=== PATIENT | male | born 1965 | race Caucasian/White ===

== ENCOUNTER 2023-08-27 14:04 | Inpatient (IN) | payer BC, SELFPAY ==
[2023-08-27] VITALS (34 sets, daily range): BP systolic 96–133; BP diastolic 62–97; PULSE 83–126; RESP 18–24; TEMP 36.6–39.3; O2SAT 87–98; BMI 25.0; BMI 25.3
--- NOTE | 2023-08-27 | CT_ITS ---
Patient: RENUKA MEJIA Facility:?[facility] Patient ID:?[id number] Site Patient ID:?[id number]. Site :?[id number] Study:?CT-Abdomen/Pelvis W/ 95CC [id number]/20/2024 5:06:02 PM Ordering Physician:Akosua Lawrence Final Report: Indication: Anorexia, vomiting, weight loss, weakness, confusion Technique: CT abdomen and pelvis with intravenous contrast, 95 cc of Isovue [address] Please note that all CT scans at this facility use dose modulation, iterative reconstruction, and/or weight-based dosing when appropriate to reduce radiation dose to as low as reasonably achievable. Comparison: Same day CT PE study Findings: The lower chest is grossly clear, see dedicated CT PE study report. Tiny gallstone is noted within the gallbladder. The liver, spleen, adrenal glands, pancreas and kidneys are unremarkable. 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 The hollow viscera without obstruction, focal bowel wall thickening or adjacent inflammatory stranding. The appendix is normal. No ascites or free air is present. Borderline enlarged hepato pancreatic node measures 10 millimeters in the short axis and portacaval node measures 14 millimeters in the short axis. The abdominal aorta and its major branches are patent and normal in caliber. Soft tissues are unremarkable. 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 Sclerosis within L4 is likely a bone island. There are degenerative changes within the lower lumbar facets. Impression: Enlarged portacaval node and borderline enlarged hepatopancreatic node, consider pancreatitis or cholecystitis. Recommend appropriate laboratory correlation and further imaging as clinically warranted. Please note that all CT scans at this facility use dose modulation, iterative reconstruction, and/or weight-based dosing when appropriate to reduce radiation dose to as low as reasonably achievable. Dictated by Tono Alarcon MD @ 08/27/2023 5:37:33 PM Signed by:?Tono Alarcon MD @08/27/2023 5:37:33 PM (Electronic Signature)
--- NOTE | 2023-08-27 15:06 | ED_ITS ---
HPI - General Adult General Time Seen by Provider: 15:07 <Judi Payan MD - Last Filed: 08/30/23 09:05> Date Seen: 08/27/23 <Judi Payan MD - Last Filed: 08/30/23 09:05> Chief complaint: Nausea/Vomiting <Judi Payan MD - Last Filed: 08/30/23 09:05> Stated complaint: General malaise, npo, vomiting <Judi Payan MD - Last Filed: 08/30/23 09:05> Time Seen by Provider: 08/27/23 14:55 <Judi Payan MD - Last Filed: 08/30/23 09:05> Source: patient, family and RN notes reviewed <Judi Payan MD - Last Filed: 08/30/23 09:05> Mode of arrival: ambulatory <Judi Payan MD - Last Filed: 08/30/23 09:05> Limitations: no limitations <Judi Payan MD - Last Filed: 08/30/23 09:05> History of Present Illness HPI narrative: This 58-year-old male is coming in with complaint of nausea and vomiting with eating, states his symptoms have been going on for a month and a half. He presents with family. When asked him who is with him, he introduces his sister and his brother. It is actually his sister and his son that her with. Patient had been down in [place], family went down to bring him back. He was in the ER at [facility] in [place], was seen on 08/07/2023. He reportedly had a CT and labs. His liver enzymes were elevated and his CT showed liver enlargement. They did give him ondansetron, he did not find it helpful but did take it. It did not allow him to eat more. He states he is really only ate minimal bites and drinks small amounts. They also did give him oral potassium. In the ER his magnesium and potassium were reportedly low, do not have the actual values. He states the only medicines that he is on our to rate control meds for history of atrial fibrillation. He has a remote history of an ablation at [facility] for atrial fibrillation. He states he was anticoagulated for about a year with that but is no longer on any anticoagulants. He has noted no change in stool color, no blood in stools but admits he has not really gone to the bathroom much the last few days is not eating. He is adamant that he is not had any alcohol for at least a week. Family is concerned that this is alcohol related, wonder about underlying cancer from alcohol. Reviewed with them that typically hepatocellular carcinoma would be seen on the CT, it looks like he had contrast with that CT. Family wondered if there could be missed things on imaging. We did review that there is always the possibility of mis sing things. He has not had endoscopy. He was supposed to be scheduled to see a motor vehicles inspector but admits he could not make that as he did not have a car or there were issues surrounding him getting to these appointments there. He notes he is lost about 30 lb in the last month and a half. Denies abdominal pain, no chest pain, no reflux, no heartburn. No respiratory symptoms. He is not feeling nauseated now. He notes Radha tries to eat or drink, will feel nauseated and then have vomiting. We have never seen this patient before. He has done some primary care at [facility]. <Judi Payan MD - Last Filed: 08/30/23 09:05> Related Data Home medications: Home Medications ?Medication ?Instructions ?Recorded ?Confirmed metoprolol succinate 100 mg 100 mg PO DAILY 08/27/23 08/27/23 tablet,extended release 24 hr ondansetron HCl 8 mg tablet 8 mg PO TID 08/27/23 08/27/23 <Judi Payan MD - Last Filed: 08/30/23 09:05> Allergies/adverse reactions: Allergies Allergy/AdvReac Type Severity Reaction Status Date / Time No Known Drug Allergies Allergy Verified 08/27/23 14:24 <Judi Payan MD - Last Filed: 08/30/23 09:05> Review of Systems Status of ROS: Reports: 6 or more systems reviewed and unremarkable except as noted in History and below <Judi Payan MD - Last Filed: 08/30/23 09:05> PFSH PFSH Medical History: Medical History (Updated 08/29/23 @ 16:13 by Jo-Ann Khan MD) Alcohol use disorder ?F10.90 - Alcohol use, unspecified, uncomplicated (ICD-10) <Judi Payan MD - Last Filed: 08/30/23 09:05> Surgical History: Surgical History (Updated 08/27/23 @ 23:49 by Kamla Mccann MD) H/O lumbosacral spine surgery ?Z98.890 - Other specified postprocedural states (ICD-10) History of bilateral hip arthroplasty ?Z96.643 - Presence of artificial hip joint, bilateral (ICD-10) Status post ablation of atrial fibrillation ?Z98.890 - Other specified postprocedural states (ICD-10) ?Z86.79 - Personal history of other diseases of the circulatory system (ICD- 10) <Judi Payan MD - Last Filed: 08/30/23 09:05> Social History: Social History What is your current living situation?: I presently have a place to live Problems where you live: declined to answer Problems where you live details: didn't answer In the past 12 months, utilities in danger of being shut off: declined to answer In past 12 months, lack of transportation kept you from medical appts, meetings, work, or getting things needed for daily living: no In the past 12 mos, have been you worried that your food would run out before you had money to buy more?: never true In the past 12 mos, the food you bought just didn't last and you didn't have money to buy more?: never true Smoking Status: Never smoker How often do you have a drink containing alcohol: 4 or more times a week Alcohol type: hard liquor Alcohol type details: rum How many standard drinks containing alcohol do you have on a typical day: 5 or 6 How often do you have six or more drinks on one occasion: Never AUDIT-C Alcohol total score: 6 Non-prescribed substance use: denies use Caffeine: Yes (coffee) How often does anyone, including family, friends and others, physically hurt you : never How often does anyone, including family, friends and others, insult or talk down to you: never How often does anyone, including family, friends and others, threaten you with harm: never How often does anyone, including family, friends and others, scream or curse at you: never service: Yes <Judi Payan MD - Last Filed: 08/30/23 09:05> Exam Const: Vital Signs, click to edit/add: Vital Signs - 24 hr 08/27/23 14:16 08/27/23 15:54 08/27/23 16:00 Temperature 97.8 F Pulse Rate 89 87 Pulse Rate [Pulse Oximeter] 99 Respiratory Rate 18 Blood Pressure Blood Pressure [Ri ght Upper Arm] 114/75 Pulse Oximetry 87 L 98 97 Oxygen Delivery Me thod Room Air 08/27/23 16:01 08/27/23 16:15 08/27/23 16:30 Temperature Pulse Rate 88 87 85 Pulse Rate [Pulse Oximeter] Respiratory Rate Blood Pressure 115/81 Blood Pressure [Ri ght Upper Arm] Pulse Oximetry 96 96 96 Oxygen Delivery Me thod 08/27/23 16:31 08/27/23 17:00 08/27/23 17:01 Temperature Pulse Rate 87 86 83 Pulse Rate [Pulse Oximeter] Respiratory Rate Blood Pressure 119/83 125/97 H Blood Pressure [Ri ght Upper Arm] Pulse Oximetry 97 93 94 Oxygen Delivery Me thod 08/27/23 17:15 08/27/23 17:30 08/27/23 17:32 Temperature Pulse Rate 83 89 87 Pulse Rate [Pulse Oximeter] Respiratory Rate Blood Pressure 96/62 Blood Pressure [Ri ght Upper Arm] Pulse Oximetry 96 97 97 Oxygen Delivery Me thod 08/27/23 17:45 08/27/23 18:00 08/27/23 18:02 Temperature Pulse Rate 87 86 86 Pulse Rate [Pulse Oximeter] Respiratory Rate Blood Pressure 133/94 H Blood Pressure [Ri ght Upper Arm] Pulse Oximetry 98 97 96 Oxygen Delivery Me thod 08/27/23 18:15 08/27/23 18:30 08/27/23 18:31 Temperature Pulse Rate 88 90 89 Pulse Rate [Pulse Oximeter] Respiratory Rate Blood Pressure 130/89 Blood Pressure [Ri ght Upper Arm] Pulse Oximetry 96 95 97 Oxygen Delivery Me thod 08/27/23 18:45 08/27/23 19:00 08/27/23 19:01 Temperature Pulse Rate 90 93 91 Pulse Rate [Pulse Oximeter] Respiratory Rate Blood Pressure 113/83 Blood Pressure [Ri ght Upper Arm] Pulse Oximetry 96 97 95 Oxygen Delivery Me thod 08/27/23 19:15 08/27/23 19:30 08/27/23 19:34 Temperature Pulse Rate 90 95 94 Pulse Rate [Pulse Oximeter] Respiratory Rate Blood Pressure Blood Pressure [Ri ght Upper Arm] Pulse Oximetry 95 93 88 Oxygen Delivery Me thod 08/27/23 20:11 08/27/23 20:15 08/27/23 20:30 Temperature Pulse Rate 108 H 108 H 114 H Pulse Rate [Pulse Oximeter] Respiratory Rate Blood Pressure Blood Pressure [Ri ght Upper Arm] Pulse Oximetry 96 96 95 Oxygen Delivery Me thod 08/27/23 20:34 08/27/23 20:45 08/27/23 21:00 Temperature Pulse Rate 114 H 117 H 122 H Pulse Rate [Pulse Oximeter] Respiratory Rate Blood Pressure Blood Pressure [Ri ght Upper Arm] Pulse Oximetry 96 94 94 Oxygen Delivery Me thod 08/27/23 21:54 08/27/23 22:00 08/27/23 22:15 Temperature Pulse Rate 126 H 126 H 126 H Pulse Rate [Pulse Oximeter] Respiratory Rate Blood Pressure Blood Pressure [Ri ght Upper Arm] Pulse Oximetry 94 96 92 Oxygen Delivery Me thod This 58-year-old male is alert, interactive, no apparent distress. He is of slender frame. Pupils are equal round reactive, sclera look clear, conjugate gaze. Symmetrical facial function, no skin changes of the face. Oropharynx with dry mucosa but lips look normal. He has some serpiginous lines on his tongue that seem to be probable geographic tongue. Neck is thin, supple, no masses, no adenopathy. He is able to sit up, lungs are clear, good air entry, no wheezing crackles. CV regular rate and rhythm, no murmur, normal S1-S2, no S3-S4. Abdomen is flat, bowel sounds present, no organomegaly noted, no rebound or guarding, nontender. No lower extremity edema noted. Patient was ambulatory into the ED of his own accord. <Judi Payan MD - Last Filed: 08/30/23 09:05> Vital Signs, click to edit/add: Vital Signs - 24 hr 08/27/23 14:16 08/27/23 15:54 08/27/23 16:00 Temperature 97.8 F Pulse Rate 89 87 Pulse Rate [Pulse Oximeter] 99 Respiratory Rate 18 Blood Pressure Blood Pressure [Ri ght Upper Arm] 114/75 Pulse Oximetry 87 L 98 97 Oxygen Delivery Me thod Room Air 08/27/23 16:01 08/27/23 16:15 08/27/23 16:30 Temperature Pulse Rate 88 87 85 Pulse Rate [Pulse Oximeter] Respiratory Rate Blood Pressure 115/81 Blood Pressure [Ri ght Upper Arm] Pulse Oximetry 96 96 96 Oxygen Delivery Me thod 08/27/23 16:31 08/27/23 17:00 08/27/23 17:01 Temperature Pulse Rate 87 86 83 Pulse Rate [Pulse Oximeter] Respiratory Rate Blood Pressure 119/83 125/97 H Blood Pressure [Ri ght Upper Arm] Pulse Oximetry 97 93 94 Oxygen Delivery Me thod 08/27/23 17:15 08/27/23 17:30 08/27/23 17:32 Temperature Pulse Rate 83 89 87 Pulse Rate [Pulse Oximeter] Respiratory Rate Blood Pressure 96/62 Blood Pressure [Ri ght Upper Arm] Pulse Oximetry 96 97 97 Oxygen Delivery Me thod 08/27/23 17:45 08/27/23 18:00 08/27/23 18:02 Temperature Pulse Rate 87 86 86 Pulse Rate [Pulse Oximeter] Respiratory Rate Blood Pressure 133/94 H Blood Pressure [Ri ght Upper Arm] Pulse Oximetry 98 97 96 Oxygen Delivery Me thod 08/27/23 18:15 08/27/23 18:30 08/27/23 18:31 Temperature Pulse Rate 88 90 89 Pulse Rate [Pulse Oximeter] Respiratory Rate Blood Pressure 130/89 Blood Pressure [Ri ght Upper Arm] Pulse Oximetry 96 95 97 Oxygen Delivery Me thod 08/27/23 18:45 08/27/23 19:00 08/27/23 19:01 Temperature Pulse Rate 90 93 91 Pulse Rate [Pulse Oximeter] Respiratory Rate Blood Pressure 113/83 Blood Pressure [Ri ght Upper Arm] Pulse Oximetry 96 97 95 Oxygen Delivery Me thod 08/27/23 19:15 08/27/23 19:30 08/27/23 19:34 Temperature Pulse Rate 90 95 94 Pulse Rate [Pulse Oximeter] Respiratory Rate Blood Pressure Blood Pressure [Ri ght Upper Arm] Pulse Oximetry 95 93 88 Oxygen Delivery Me thod 08/27/23 20:11 08/27/23 20:15 08/27/23 20:30 Temperature Pulse Rate 108 H 108 H 114 H Pulse Rate [Pulse Oximeter] Respiratory Rate Blood Pressure Blood Pressure [Ri ght Upper Arm] Pulse Oximetry 96 96 95 Oxygen Delivery Me thod 08/27/23 20:34 08/27/23 20:45 08/27/23 21:00 Temperature Pulse Rate 114 H 117 H 122 H Pulse Rate [Pulse Oximeter] Respiratory Rate Blood Pressure Blood Pressure [Ri ght Upper Arm] Pulse Oximetry 96 94 94 Oxygen Delivery Me thod 08/27/23 21:54 08/27/23 22:00 08/27/23 22:15 Temperature Pulse Rate 126 H 126 H 126 H Pulse Rate [Pulse Oximeter] Respiratory Rate Blood Pressure Blood Pressure [Ri ght Upper Arm] Pulse Oximetry 94 96 92 Oxygen Delivery Me thod <Mahamed Lawrence MD - Last Filed: 08/28/23 00:36> Documenting provider has reviewed patient's vital signs: yes <Judi Payan MD - Last Filed: 08/30/23 09:05> Course Course ED Course: We will initiate IV fluids, recheck full complement of labs. This patient is exhibiting weight loss with recurrent nausea vomiting with eating. There is probable underlying liver issues stemming from alcohol use. Patient's son wanted to know how we would see about the level of liver disease. I reviewed with him 1st and foremost is rechecking the labs. Sometimes liver biopsy is needed for further differentiation and diagnosis of underlying liver disease, they understand that this is not something that can be done here. I have also reviewed with them that we really have no Specialty Services, no GI services here. We certainly can check baseline labs and will do full complement of them including the liver labs. I do not think repeat CT imaging is necessary at this time, can see if we can get the report at least of his CT. He may need endoscopy next step for further differentiation of his GI symptoms. It will depend on what we see on his labs. <Judi Payan MD - Last Filed: 08/30/23 09:05> Reevaluation(s) Time of Reevaluation #1: 15:52 <Judi Payan MD - Last Filed: 08/30/23 09:05> Reevaluation #1: We did attempt to contact the facility he was seen into son, there is no answer and would appear the facilities closed at this time. Our ED credit control assistant is faxing for records, we may not get those until later date better still important to try to attain. Of note, patient's original O2 sat in triage was 87% but he has absolutely no respiratory symptoms, lungs are clear. Current monitoring while he is at rest lying in bed is 97%. I a have a note in but the nurse to put in the triage is not available at this time. <Judi Payan MD - Last Filed: 08/30/23 09:05> Reevaluation #2: Patient signed out to Dr. Lawrence at 4:00 p.m.. This is a 58-year-old male with a complex presentation and a recent partial workup at a hospital facility in [facility]. However records from that facility are limited/not available. Per report he had some mildly abnormal liver function tests and was supposed to have arranged outpatient GI follow-up but was not able to do so because of transportation problems. He did not have an EGD. He is not on a PPI. He presented to the ER today without of on a month long history of anorexia, nausea and vomiting associated with a 30 lb weight loss. Laboratory workup ordered by Dr. Washington is pending. We also ordered a CT scan chest abdomen pelvis to look for possible solid organ malignancy associated with his weight loss. Labs show: Ethanol less than 0.01. Per patient report he has not had any to drink since last week. Lipase 254 PTT 39H INR 1.4H Direct bilirubin 0.7 Total bilirubin 1.5 AST 71 ALT 22 Alkaline phosphatase 213 Ammonia less than 9 Sodium 132 Potassium 2.8 Chloride 86 Bicarb 36 Anion gap 10 BUN 16 Creatinine 0.7 Glucose 109 Magnesium 1.6 Calcium 8.3 Lactate 2.0 CRP 19.2 H WBC 11.9, hemoglobin 14.9, platelet count 309 Subsequently we received faxed report from [place]. Per those records he was in the ER 08/07/2023. Had presented with a 10 day course of nausea, vomiting, and intermittent cough. Had a 20 year history of alcohol consumption but quit about 2 weeks prior to his admission. Records indicate that he was on metoprolol (rate control for AFib) CT scan abdomen/pelvis 1. Hepatomegaly with large geographic area of fatty infiltration. 2. Cholelithiasis with 3. Splenorenal varices of uncertain significance. 4. Otherwise, unremarkable CT of the abdomen and pelvis Labs showed negative coronavirus, influenza a, influenza B PCR WBC 12.0, hemoglobin 15.5, platelet count 238 INR 1.4 Sodium 129, potassium 3.2, chloride 87, bicarb 29, BUN 16, creatinine 1.3, glucose 152, calcium 8.7 Albumin low at 3.2, alk-phos elevated at 225, ALT normal at 42, AST abnormal at 78, total bilirubin 1.8, abnormal. He was discharged from the ER. They recommended GI evaluation for enlarged liver and elevated liver enzymes. The patient was supposed to call for an appointment. Use Zofran as needed for nausea and vomiting. Take oral potassium. And follow-up with his primary care provider Head CT IMPRESSION: 1. No CT evidence of acute intracranial abnormality. 2. Small areas of encephalomalacia at the left temporal lobe, presumably sequela of remote ischemic/traumatic insult. History from the patient is that he did take the prescribed Zofran for a couple of weeks and then ran out. It did not really help at 1st but then maybe just before he ran out it might have helped a little bit. He has mostly had a lot of nausea every morning ever since his visit to the ER. He vomits at least once per day, but not many times per day. Emesis is usually clear or yellowish greenish. Never bloody. Stools have been soft usually brown. Sometimes hard. Urination has been yellow but otherwise normal. No fever. No abdominal pain no bloating. He has lost about 30 lb over the past 6 weeks. He does say that he drinks ?too much? for years. He says he does not drink every day with sometimes only had 1 glass of wine and sometimes will have 2 or 3 drinks of rum. He notes that he drinks too much. He is to cut back on drinking about a month ago and has not had anything to drink in the past 2 weeks but he has not been feeling any better. He does not know of any previous history of any liver disease, cirrhosis and has never been told to stop drinking by a doctor. He is a nonsmoker. No history of malignancy. No history of cancer. He does take metoprolol because of history of AFib. [facility] and as far as he knows he has not had any recent episodes of a fib. His regular primary care doctor is at [place] in [place]. He does have a primary office that he sees occasionally in [place] when he is there for the case. He made an appointment to see a primary care provider which is scheduled for later this week. However when his family heard how poorly was he was feeling the came down to a [place] try to help of supplement his food. When he was not able to tolerate food that they were giving him they brought him home to [place]. Medical decision making 58-year-old male with about a 4-6 week history of nearly intractable nausea, frequent nonbloody vomiting, anorexia, associated with 30 lb weight loss. He does have a history of excess alcohol use but reports that he quit drinking a few weeks ago. No abdominal pain but is having nausea and vomiting. Not responsive to oral ondansetron and associated with 30 lb weight loss. No abdominal pain. CT scan abdomen pelvis shows no definitive explanation for his symptoms. There are nonspecific findings including an abnormal portacaval lymph node and borderline hepatic pancreatic lymph node. Also gallstones. No evidence for cholecystitis. He is not having any pain to suggest acute cholecystitis. No sign of any obstruction or other inflammatory pathology in the abdomen pelvis. Differential would include possible chronic pancreatitis although there is no signs of pancreatitis, pseudocyst on CT. Lipase level is normal today. Differential could also include gallbladder disease but he is not having any pain so that seems less likely. No evidence for any obvious solid organ tumors such as hepatocellular carcinoma on his CT scan. Concern could be for other malignancy such as pancreatic which is not detected on CT today. And head CT is negative for any sign of hydrocephalus or intracranial hemorrhage that might cause vomiting. LFTs are mildly abnormal with elevated direct bilirubin at 0.7, mildly abnormal AST of 71, alk-phos of 213. Ammonia level is normal. White blood cell count mildly elevated 11.9. CRP is quite elevated at 19.2. However no clear infection found so far. Differential would also include gastritis, peptic ulcer disease. He does not have any evidence for perforated ulcer and no evidence for GI bleeding history based on his absence of any black or bloody stools, absence of hematemesis, stable vital signs, normal hemoglobin today. Treated with Protonix here in the ER. Due to vomiting he does have clinical signs of dehydration and weakness with falls. He received IV crystalloid here in the ER. Also treated with empiric PPI. Reglan for nausea. Overall he has gotten so weak from not eating that he is now falling. Family also notes that he also seems mildly confused. Unclear explanation. EKG shows nonspecific T-wave inversions in the anterior leads but he is not having any chest pain. Troponin is undetectable. I wonder if his EKG changes could reflect hypokalemia. Potassium is low at 2.8. Supplemented with IV potassium chloride here in the ER. Overall he is having too much ongoing nausea to tolerate oral liquid and food at home or oral potassium supplements. At this point I do think he needs workup in the hospital for hydration, electrolyte replacement. He would benefit from being at a hospital where GI consultation is available. He like will need EGD or further workup for his abnormal hepato pancreatic lymph node and portacaval lymph node such as MR imaging of the pancreas. Disposition: It is clear this patient needs hospitalization given his overall weakness, mild confusion, low potassium with EKG changes. Additionally he really does not have a good plan for any outpatient workup not is here in [place]. Has previous primary care in [place] but no connection to GI. Likely would not be able to get a outpatient GI workup in a meaningful time frame. Discussed with the patient and his sister. They agreed that hospitalization is indicated. If possible would like to get him transferred to a facility were GI capability exists a soda can have an inpatient GI consult. This would be facility such as [facility], [facility]. I have contacted [facility] and they have no open beds. Male has no open beds. [facility] including [place] and other hospitals in her system has no open beds but they will put the patient on a wait list. At this point with no other alternative, we will admit him for medical management, IV hydration, potassium replacement, and monitoring here in [place]. We could at least do endoscopy to look for possible gastritis or peptic ulcer disease or other cause for his vomiting. He will remain on the wait list for the [facility] system. If a bed opens up, he potentially could transfer tomorrow or the next day, if necessary. <Mahamed Lawrence MD - Last Filed: 08/28/23 00:36> Vital Signs Vital signs: Initial Vital Signs Temperature 97.8 F 08/27/23 14:16 Temperature Source Temporal Artery Scan 08/27/23 14:16 Pulse Rate 99 08/27/23 14:16 Respiratory Rate 18 08/27/23 14:16 Blood Pressure 114/75 08/27/23 14:16 Blood Pressure Mean 88 08/27/23 14:16 Blood Pressure Position Sitting 08/27/23 14:16 Pulse Oximetry 87 L 08/27/23 14:16 Oxygen Delivery Method Room Air 08/27/23 14:16 Vital Signs Temperature 97.8 F 08/27/23 14:16 Pulse Rate 99 08/27/23 14:16 Respiratory Rate 18 08/27/23 14:16 Blood Pressure 114/75 08/27/23 14:16 Pulse Oximetry 87 L 08/27/23 14:16 Oxygen Delivery Method Room Air 08/27/23 14:16 Temperature 97.1 F L 08/30/23 08:40 Pulse Rate 81 08/30/23 08:40 Respiratory Rate 16 08/30/23 08:40 Blood Pressure 122/89 08/30/23 08:40 Pulse Oximetry 97 08/30/23 08:40 Oxygen Delivery Method Room Air 08/30/23 08:40 <Judi Payan MD - Last Filed: 08/30/23 09:05> Initial Vital Signs Temperature 97.8 F 08/27/23 14:16 Temperature Source Temporal Artery Scan 08/27/23 14:16 Pulse Rate 99 08/27/23 14:16 Respiratory Rate 18 08/27/23 14:16 Blood Pressure 114/75 08/27/23 14:16 Blood Pressure Mean 88 08/27/23 14:16 Blood Pressure Position Sitting 08/27/23 14:16 Pulse Oximetry 87 L 08/27/23 14:16 Oxygen Delivery Method Room Air 08/27/23 14:16 Vital Signs Temperature 97.8 F 08/27/23 14:16 Pulse Rate 99 08/27/23 14:16 Respiratory Rate 18 08/27/23 14:16 Blood Pressure 114/75 08/27/23 14:16 Pulse Oximetry 87 L 08/27/23 14:16 Oxygen Delivery Method Room Air 08/27/23 14:16 Temperature 97.1 F L 08/30/23 08:40 Pulse Rate 81 08/30/23 08:40 Respiratory Rate 16 08/30/23 08:40 Blood Pressure 122/89 08/30/23 08:40 Pulse Oximetry 97 08/30/23 08:40 Oxygen Delivery Method Room Air 08/30/23 08:40 <Mahamed Lawrence MD - Last Filed: 08/28/23 00:36> Medications Administered Medications: Generic Name Dose Route Start Last Admin Trade Name Freq PRN Reason Stop Dose Admin Acetaminophen 650 - 975 mg 08/28/23 00:03 08/29/23 01:11 Acetaminophen 325 Mg Tablet PO 975 mg Q6H PRN Administration Cetirizine HCl 10 mg 08/28/23 21:00 08/30/23 08:16 Cetirizine Hcl 10 Mg Tablet PO 10 mg BID SOPHIA Administration Sodium Chloride 1,000 mls @ 125 mls/hr 08/27/23 21:19 08/30/23 03:03 0.9 % Sodium Chloride 1000 Ml IV 125 mls/hr .Q8H SOPHIA Administration Piperacillin Sod/Tazobactam 100 mls @ 200 mls/hr 08/28/23 14:00 08/30/23 08:15 Sod 3.375 gm/ Sodium Chloride IVPB 200 mls/hr Q6H SOPHIA Administration Vancomycin HCl 1,500 mg/ 515 mls @ 256.25 mls/hr 08/28/23 17:00 08/30/23 05:40 Sodium Chloride IVPB 256.3 mls/hr Q12H SOPHIA Administration Protocol Omeprazole 40 mg 08/28/23 07:00 08/30/23 06:29 Omeprazole [address] PO 40 mg DAILY@0700 SOPHIA Administration Sodium Chloride 5 ml 08/28/23 00:03 08/29/23 17:29 Sodium Chloride 0.9 % (Flush) 10 Ml Syringe IVF 5 ml .FLUSH PRN Administration Sodium Chloride 5 ml 08/28/23 09:00 08/30/23 08:16 Sodium Chloride 0.9 % (Flush) 10 Ml Syringe IVF Not Given BID SOPHIA Discontinued Medications Generic Name Dose Route Start Last Admin Trade Name Freq PRN Reason Stop Dose Admin Lactated Ringer's 1,000 mls @ 1,000 mls/hr 08/27/23 15:23 08/27/23 17:40 Lactated Ringers 1000 Ml IV 08/27/23 16:22 Infused .Q1H ONE Infusion Potassium Chloride 10 meq in 100 mls @ 100 mls/hr 08/27/23 17:24 08/27/23 19:00 Potassium Chloride IVPB 08/27/23 18:23 Infused ONCE ONE Infusion Potassium Chloride 10 meq in 100 mls @ 100 mls/hr 08/27/23 21:30 08/28/23 01:39 Potassium Chloride IVPB 08/28/23 01:29 Infused Q90M SOPHIA Infusion Folic Acid 1 mg/ Multivitamins 1,011.2 mls @ 252.8 mls/hr 08/27/23 21:59 08/28/23 03:00 10 ml/ Thiamine HCl 100 mg/ IV 08/28/23 01:58 252.8 mls/hr Sodium Chloride .Q4H SOPHIA Administration Piperacillin Sod/Tazobactam 100 mls @ 200 mls/hr 08/27/23 23:45 08/28/23 07:40 Sod 3.375 gm/ Sodium Chloride IVPB 200 mls/hr Q6H SOPHIA Administration Vancomycin HCl 2,000 mg/ 520 mls @ 260 mls/hr 08/28/23 00:07 08/28/23 04:58 Sodium Chloride IVPB 08/28/23 00:08 Infused ONCE ONE Infusion Protocol Sodium Chloride 1,000 mls @ 500 mls/hr 08/28/23 00:45 08/28/23 04:58 0.9 % Sodium Chloride 1000 Ml IV 08/28/23 02:44 Infused .Q2H SOPHIA Infusion Sodium Chloride 1,000 mls @ 1,000 mls/hr 08/28/23 18:48 08/29/23 00:07 0.9 % Sodium Chloride 1000 Ml IV 08/28/23 19:47 Infused .Q1H SOPHIA Infusion Potassium Chloride 10 meq in 100 mls @ 100 mls/hr 08/28/23 23:45 08/29/23 01:11 Potassium Chloride IVPB 08/29/23 02:14 100 mls/hr Q90M SOPHIA Administration Calcium Gluconate/Sodium Chloride 1,000 mg in 50 mls @ 100 mls/hr 08/29/23 06:58 05/22/24 07:32 Calcium Gluc 1,000mg/50 Ml IVPB 08/29/23 07:27 100 mls/hr ONCE ONE Administration Magnesium Sulfate/Dextrose 1 gm in 100 mls @ 100 mls/hr 08/29/23 06:58 08/29/23 07:31 Magnesium Sulf 1 G/100 Ml-D5w IVPB 08/29/23 07:57 100 mls/hr ONCE ONE Administration Calcium Gluconate/Sodium Chloride 1,000 mg in 50 mls @ 100 mls/hr 08/29/23 15:00 08/29/23 14:45 Calcium Gluc 1,000mg/50 Ml IVPB 08/29/23 15:29 100 mls/hr ONCE ONE Administration Calcium Gluconate/Sodium Chloride 1,000 mg in 50 mls @ 100 mls/hr 08/29/23 21:46 08/29/23 22:41 Calcium Gluc 1,000mg/50 Ml IVPB 08/29/23 22:15 100 mls/hr ONCE ONE Administration Metoclopramide HCl 10 mg 08/27/23 21:20 08/27/23 21:49 Metoclopramide Hcl 5 Mg/Ml Inj IVP 08/27/23 21:21 10 mg ONCE ONE Administration Pantoprazole Sodium 80 mg 08/27/23 16:22 08/27/23 17:18 Pantoprazole Sodium 40 Mg Inj IVP 08/27/23 16:23 80 mg ONCE ONE Administration Potassium Bicarbonate 50 meq 08/29/23 06:58 08/29/23 07:30 Potassium Bicarb 25 Meq Effervescent Tab PO 08/29/23 06:59 50 meq ONCE ONE Administration Potassium Bicarbonate 25 meq 08/29/23 13:15 08/29/23 22:49 Potassium Bicarb 25 Meq Effervescent Tab PO 08/29/23 23:16 25 meq Q2H SOPHIA Administration <Judi Payan MD - Last Filed: 08/30/23 09:05> Generic Name Dose Route Start Last Admin Trade Name Freq PRN Reason Stop Dose Admin Acetaminophen 650 - 975 mg 08/28/23 00:03 08/29/23 01:11 Acetaminophen 325 Mg Tablet PO 975 mg Q6H PRN Administration Cetirizine HCl 10 mg 08/28/23 21:00 08/30/23 08:16 Cetirizine Hcl 10 Mg Tablet PO 10 mg BID SOPHIA Administration Sodium Chloride 1,000 mls @ 125 mls/hr 08/27/23 21:19 08/30/23 03:03 0.9 % Sodium Chloride 1000 Ml IV 125 mls/hr .Q8H SOPHIA Administration Piperacillin Sod/Tazobactam 100 mls @ 200 mls/hr 08/28/23 14:00 08/30/23 08:15 Sod 3.375 gm/ Sodium Chloride IVPB 200 mls/hr Q6H SOPHIA Administration Vancomycin HCl 1,500 mg/ 515 mls @ 256.25 mls/hr 08/28/23 17:00 08/30/23 05:40 Sodium Chloride IVPB 256.3 mls/hr Q12H SOPHIA Administration Protocol Omeprazole 40 mg 08/28/23 07:00 08/30/23 06:29 Omeprazole [address] PO 40 mg DAILY@0700 SOPHIA Administration Sodium Chloride 5 ml 08/28/23 00:03 08/29/23 17:29 Sodium Chloride 0.9 % (Flush) 10 Ml Syringe IVF 5 ml .FLUSH PRN Administration Sodium Chloride 5 ml 08/28/23 09:00 08/30/23 08:16 Sodium Chloride 0.9 % (Flush) 10 Ml Syringe IVF Not Given BID SOPHIA Discontinued Medications Generic Name Dose Route Start Last Admin Trade Name Freq PRN Reason Stop Dose Admin Lactated Ringer's 1,000 mls @ 1,000 mls/hr 08/27/23 15:23 08/27/23 17:40 Lactated Ringers 1000 Ml IV 08/27/23 16:22 Infused .Q1H ONE Infusion Potassium Chloride 10 meq in 100 mls @ 100 mls/hr 08/27/23 17:24 08/27/23 19:00 Potassium Chloride IVPB 08/27/23 18:23 Infused ONCE ONE Infusion Potassium Chloride 10 meq in 100 mls @ 100 mls/hr 08/27/23 21:30 08/28/23 01:39 Potassium Chloride IVPB 08/28/23 01:29 Infused Q90M SOPHIA Infusion Folic Acid 1 mg/ Multivitamins 1,011.2 mls @ 252.8 mls/hr 08/27/23 21:59 08/28/23 03:00 10 ml/ Thiamine HCl 100 mg/ IV 08/28/23 01:58 252.8 mls/hr Sodium Chloride .Q4H SOPHIA Administration Piperacillin Sod/Tazobactam 100 mls @ 200 mls/hr 08/27/23 23:45 08/28/23 07:40 Sod 3.375 gm/ Sodium Chloride IVPB 200 mls/hr Q6H SOPHIA Administration Vancomycin HCl 2,000 mg/ 520 mls @ 260 mls/hr 08/28/23 00:07 08/28/23 04:58 Sodium Chloride IVPB 08/28/23 00:08 Infused ONCE ONE Infusion Protocol Sodium Chloride 1,000 mls @ 500 mls/hr 08/28/23 00:45 08/28/23 04:58 0.9 % Sodium Chloride 1000 Ml IV 08/28/23 02:44 Infused .Q2H SOPHIA Infusion Sodium Chloride 1,000 mls @ 1,000 mls/hr 08/28/23 18:48 08/29/23 00:07 0.9 % Sodium Chloride 1000 Ml IV 08/28/23 19:47 Infused .Q1H SOPHIA Infusion Potassium Chloride 10 meq in 100 mls @ 100 mls/hr 08/28/23 23:45 08/29/23 01:11 Potassium Chloride IVPB 08/29/23 02:14 100 mls/hr Q90M SOPHIA Administration Calcium Gluconate/Sodium Chloride 1,000 mg in 50 mls @ 100 mls/hr 08/29/23 06:58 08/29/23 07:32 Calcium Gluc 1,000mg/50 Ml IVPB 08/29/23 07:27 100 mls/hr ONCE ONE Administration Magnesium Sulfate/Dextrose 1 gm in 100 mls @ 100 mls/hr 08/29/23 06:58 08/29/23 07:31 Magnesium Sulf 1 G/100 Ml-D5w IVPB 08/29/23 07:57 100 mls/hr ONCE ONE Administration Calcium Gluconate/Sodium Chloride 1,000 mg in 50 mls @ 100 mls/hr 08/29/23 15:00 08/29/23 14:45 Calcium Gluc 1,000mg/50 Ml IVPB 08/29/23 15:29 100 mls/hr ONCE ONE Administration Calcium Gluconate/Sodium Chloride 1,000 mg in 50 mls @ 100 mls/hr 08/29/23 21:46 08/29/23 22:41 Calcium Gluc 1,000mg/50 Ml IVPB 08/29/23 22:15 100 mls/hr ONCE ONE Administration Metoclopramide HCl 10 mg 08/27/23 21:20 08/27/23 21:49 Metoclopramide Hcl 5 Mg/Ml Inj IVP 08/27/23 21:21 10 mg ONCE ONE Administration Pantoprazole Sodium 80 mg 08/27/23 16:22 08/27/23 17:18 Pantoprazole Sodium 40 Mg Inj IVP 08/27/23 16:23 80 mg ONCE ONE Administration Potassium Bicarbonate 50 meq 08/29/23 06:58 08/29/23 07:30 Potassium Bicarb 25 Meq Effervescent Tab PO 08/29/23 06:59 50 meq ONCE ONE Administration Potassium Bicarbonate 25 meq 08/29/23 13:15 08/29/23 22:49 Potassium Bicarb 25 Meq Effervescent Tab PO 08/29/23 23:16 25 meq Q2H SOPHIA Administration <Mahamed Lawrence MD - Last Filed: 08/28/23 00:36> Medical Decision Making Lab Data Labs: Lab Results 08/27/23 08/27/23 08/28/23 Range/Units 15:50 23:33 00:04 WBC 11.98 H (4.50-11.00) K/uL RBC 4.43 (4.30-5.90) m/uL Hgb 14.9 (13.5-17.5) gm/dL Hct 43.1 (37.0-53.0) % MCV 97 (80-100) fL MCH 34 (26-34) pg MCHC 35 (32-36) gm/dL RDW Coeff of Lesley 12.7 (11.5-15.5) % Plt Count 309 (140-440) K/uL Neut % (Auto) 79.5 H (42.0-72.0) % Lymph % (Auto) 12.4 L (20-44) % Beauregard % (Auto) 6.6 (0.0-11.0) % Eos % (Auto) 1.0 (0.0-7.0) % Baso % (Auto) 0.2 (0.0-3.0) % Neut # (Auto) 9.50 H (1.7-7.0) K/uL Lymph # (Auto) 1.50 (0.90-2.90) K/uL Beauregard # (Auto) 0.80 (0.00-0.90) K/UL Eos # (Auto) 0.10 (0.00-0.50) K/uL Baso # (Auto) 0.00 (0.00-0.30) K/uL Abs Immat Gran (auto) 0.00 (0.00-0.30) K/uL Imm/Tot Granulo (auto) 0.3 % INR 1.40 H (0.91-1.10) APTT 39 H (23-33) Seconds Sodium 132 L 132 L (135-149) mmol/L Potassium 2.8 L* 3.4 L (3.6-5.1) mmol/L Chloride 86 L 89 L (96-114) mmol/L Carbon Dioxide 36 H 31 (20-32) mmol/L Anion Gap 10 12 (7-15) mEq/L BUN 16 14 (7-30) mg/dL Creatinine 0.7 0.8 (0.5-1.5) mg/dL Estimated Creat Clear 108.86 95.25 Estimated GFR 107 103 ml/min Glucose 107 121 H (60-115) mg/dL Lactate 2.0 H 3.9 H (0.5-1.9) mmol/L Calcium 8.3 L 8.1 L (8.4-10.6) mg/dL Magnesium 1.6 (1.5-2.6) mg/dL Total Bilirubin 1.5 (0.1-1.5) mg/dL Direct Bilirubin 0.7 H (0.0-0.5) mg/dL AST 71 H (12-35) U/L ALT 22 (4-50) U/L Alkaline Phosphatase 213 H (40-150) U/L Ammonia < 9.0 L (13.1-30.0) umol/L Troponin I < 0.01 L (0.01-0.04) ng/mL C-Reactive Protein 19.2 H (0.5-1.0) mg/dL Total Protein 8.4 H (6.0-8.3) g/dL Albumin 4.2 (3.3-5.0) g/dL Lipase 254 (23-300) U/L Procalcitonin 0.53 H (<0.50) ng/mL Ethyl Alcohol < 0.01 L (0.01-0.03) % Lab Acknowledgement Test Added 08/28/23 08/28/23 Range/Units 13:10 13:10 WBC 10.53 (4.50-11.00) K/uL RBC 3.83 L (4.30-5.90) m/uL Hgb 12.8 L (13.5-17.5) gm/dL Hct 37.7 (37.0-53.0) % MCV 98 (80-100) fL MCH 33 (26-34) pg MCHC 34 (32-36) gm/dL RDW Coeff of Lesley (11.5-15.5) % Plt Count 251 (140-440) K/uL Neut % (Auto) (42.0-72.0) % Lymph % (Auto) (20-44) % Beauregard % (Auto) (0.0-11.0) % Eos % (Auto) (0.0-7.0) % Baso % (Auto) (0.0-3.0) % Neut # (Auto) (1.7-7.0) K/uL Lymph # (Auto) (0.90-2.90) K/uL Beauregard # (Auto) (0.00-0.90) K/UL Eos # (Auto) (0.00-0.50) K/uL Baso # (Auto) (0.00-0.30) K/uL Abs Immat Gran (auto) (0.00-0.30) K/uL Imm/Tot Granulo (auto) % INR (0.91-1.10) APTT (23-33) Seconds Sodium 132 L (135-149) mmol/L Potassium Cancelled 3.0 L (3.6-5.1) mmol/L Chloride (96-114) mmol/L Carbon Dioxide (20-32) mmol/L Anion Gap (7-15) mEq/L BUN (7-30) mg/dL Creatinine (0.5-1.5) mg/dL Estimated Creat Clear Estimated GFR ml/min Glucose (60-115) mg/dL Lactate 2.7 H (0.5-1.9) mmol/L Calcium (8.4-10.6) mg/dL Magnesium (1.5-2.6) mg/dL Total Bilirubin 1.7 H (0.1-1.5) mg/dL Direct Bilirubin 1.3 H (0.0-0.5) mg/dL AST 90 H (12-35) U/L ALT 26 (4-50) U/L Alkaline Phosphatase 259 H (40-150) U/L Ammonia (13.1-30.0) umol/L Troponin I (0.01-0.04) ng/mL C-Reactive Protein (0.5-1.0) mg/dL Total Protein 7.1 (6.0-8.3) g/dL Albumin 3.4 (3.3-5.0) g/dL Lipase (23-300) U/L Procalcitonin (<0.50) ng/mL Ethyl Alcohol (0.01-0.03) % Lab Acknowledgement <Judi Payan MD - Last Filed: 08/30/23 09:05> Lab Results 08/27/23 08/27/23 08/28/23 Range/Units 15:50 23:33 00:04 WBC 11.98 H (4.50-11.00) K/uL RBC 4.43 (4.30-5.90) m/uL Hgb 14.9 (13.5-17.5) gm/dL Hct 43.1 (37.0-53.0) % MCV 97 (80-100) fL MCH 34 (26-34) pg MCHC 35 (32-36) gm/dL RDW Coeff of Lesley 12.7 (11.5-15.5) % Plt Count 309 (140-440) K/uL Neut % (Auto) 79.5 H (42.0-72.0) % Lymph % (Auto) 12.4 L (20-44) % Beauregard % (Auto) 6.6 (0.0-11.0) % Eos % (Auto) 1.0 (0.0-7.0) % Baso % (Auto) 0.2 (0.0-3.0) % Neut # (Auto) 9.50 H (1.7-7.0) K/uL Lymph # (Auto) 1.50 (0.90-2.90) K/uL Beauregard # (Auto) 0.80 (0.00-0.90) K/UL Eos # (Auto) 0.10 (0.00-0.50) K/uL Baso # (Auto) 0.00 (0.00-0.30) K/uL Abs Immat Gran (auto) 0.00 (0.00-0.30) K/uL Imm/Tot Granulo (auto) 0.3 % INR 1.40 H (0.91-1.10) APTT 39 H (23-33) Seconds Sodium 132 L 132 L (135-149) mmol/L Potassium 2.8 L* 3.4 L (3.6-5.1) mmol/L Chloride 86 L 89 L (96-114) mmol/L Carbon Dioxide 36 H 31 (20-32) mmol/L Anion Gap 10 12 (7-15) mEq/L BUN 16 14 (7-30) mg/dL Creatinine 0.7 0.8 (0.5-1.5) mg/dL Estimated Creat Clear 108.86 95.25 Estimated GFR 107 103 ml/min Glucose 107 121 H (60-115) mg/dL Lactate 2.0 H 3.9 H (0.5-1.9) mmol/L Calcium 8.3 L 8.1 L (8.4-10.6) mg/dL Magnesium 1.6 (1.5-2.6) mg/dL Total Bilirubin 1.5 (0.1-1.5) mg/dL Direct Bilirubin 0.7 H (0.0-0.5) mg/dL AST 71 H (12-35) U/L ALT 22 (4-50) U/L Alkaline Phosphatase 213 H (40-150) U/L Ammonia < 9.0 L (13.1-30.0) umol/L Troponin I < 0.01 L (0.01-0.04) ng/mL C-Reactive Protein 19.2 H (0.5-1.0) mg/dL Total Protein 8.4 H (6.0-8.3) g/dL Albumin 4.2 (3.3-5.0) g/dL Lipase 254 (23-300) U/L Procalcitonin 0.53 H (<0.50) ng/mL Ethyl Alcohol < 0.01 L (0.01-0.03) % Lab Acknowledgement Test Added 08/28/23 08/28/23 Range/Units 13:10 13:10 WBC 10.53 (4.50-11.00) K/uL RBC 3.83 L (4.30-5.90) m/uL Hgb 12.8 L (13.5-17.5) gm/dL Hct 37.7 (37.0-53.0) % MCV 98 (80-100) fL MCH 33 (26-34) pg MCHC 34 (32-36) gm/dL RDW Coeff of Lesley (11.5-15.5) % Plt Count 251 (140-440) K/uL Neut % (Auto) (42.0-72.0) % Lymph % (Auto) (20-44) % Beauregard % (Auto) (0.0-11.0) % Eos % (Auto) (0.0-7.0) % Baso % (Auto) (0.0-3.0) % Neut # (Auto) (1.7-7.0) K/uL Lymph # (Auto) (0.90-2.90) K/uL Beauregard # (Auto) (0.00-0.90) K/UL Eos # (Auto) (0.00-0.50) K/uL Baso # (Auto) (0.00-0.30) K/uL Abs Immat Gran (auto) (0.00-0.30) K/uL Imm/Tot Granulo (auto) % INR (0.91-1.10) APTT (23-33) Seconds Sodium 132 L (135-149) mmol/L Potassium Cancelled 3.0 L (3.6-5.1) mmol/L Chloride (96-114) mmol/L Carbon Dioxide (20-32) mmol/L Anion Gap (7-15) mEq/L BUN (7-30) mg/dL Creatinine (0.5-1.5) mg/dL Estimated Creat Clear Estimated GFR ml/min Glucose (60-115) mg/dL Lactate 2.7 H (0.5-1.9) mmol/L Calcium (8.4-10.6) mg/dL Magnesium (1.5-2.6) mg/dL Total Bilirubin 1.7 H (0.1-1.5) mg/dL Direct Bilirubin 1.3 H (0.0-0.5) mg/dL AST 90 H (12-35) U/L ALT 26 (4-50) U/L Alkaline Phosphatase 259 H (40-150) U/L Ammonia (13.1-30.0) umol/L Troponin I (0.01-0.04) ng/mL C-Reactive Protein (0.5-1.0) mg/dL Total Protein 7.1 (6.0-8.3) g/dL Albumin 3.4 (3.3-5.0) g/dL Lipase (23-300) U/L Procalcitonin (<0.50) ng/mL Ethyl Alcohol (0.01-0.03) % Lab Acknowledgement <Mahamed Lawrence MD - Last Filed: 08/28/23 00:36> Imaging Data CT scan - chest: Attestation: I have reviewed the pertinent imaging results. <Mahamed Lawrence MD - Last Filed: 08/28/23 00:36> Radiologist's impression: IMPRESSION: 1. No pulmonary embolus. No CT evidence of right heart strain. 2. No acute intrathoracic pathology. 3. Mild coronary arterial calcifications. Advise correlation with ASCVD evaluation. <Mahamed Lawrence MD - Last Filed: 08/28/23 00:36> CT scan - abdomen: Attestation: I have reviewed the pertinent imaging results. <Mahamed Lawrence MD - Last Filed: 08/28/23 00:36> Radiologist's impression: Impression: Enlarged portacaval node and borderline enlarged hepatopancreatic node, consider pancreatitis or cholecystitis. Recommend appropriate laboratory correlation and further imaging as clinically warranted <Mahamed Lawrence MD - Last Filed: 08/28/23 00:36> CT scan - head: Attestation: I have reviewed the pertinent imaging results. <Mahamed Lawrence MD - Last Filed: 08/28/23 00:36> Radiologist's impression: IMPRESSION: 1. No CT evidence of acute intracranial abnormality. 2. Small areas of encephalomalacia at the left temporal lobe, presumably sequela of remote ischemic/traumatic insult. <Mahamed Lawrence MD - Last Filed: 08/28/23 00:36>
[2023-08-27] MEDS: LACTATED RINGERS 1000 ML 1,000 ML IV (15:59)
[2023-08-27 16:00] LABS: Basophils Percent Auto 0.2 % (0.0-3.0); Hematocrit 43.1 % (37.0-53.0); Hemoglobin* 14.9 gm/dL (13.5-17.5); Immature Granulocytes Pct Auto 0.3 %; Lymphocytes Percent Auto 12.4 % (20-44); Mean Corpuscular HGB Conc 35 gm/dL (32-36); Mean Corpuscular Hemoglobin 34 pg (26-34); Mean Corpuscular Volume 97 fL (80-100); Monocytes Percent Auto 6.6 % (0.0-11.0); Neutrophils Percent Auto 79.5 % (42.0-72.0); Platelet Count* 309 K/uL (140-440); RDW Coefficient of Variation % 12.7 % (11.5-15.5); Red Blood Count 4.43 m/uL (4.30-5.90); White Blood Count* 11.98 K/uL (4.50-11.00)
[2023-08-27 16:01] LABS: Slide Review Reflex No
[2023-08-27 16:18] LABS: Partial Thromboplastin Time* 39 Seconds (23-33); Prothrombin Time 18.1 Seconds
[2023-08-27 16:20] LABS: Ammonia* < 9.0 umol/L (13.1-30.0)
--- NOTE | 2023-08-27 16:22 | CT_ITS ---
Patient: RENUKA MEJIA Facility:?[facility] Patient ID:?[id number] Site Patient ID:?[id number] Site :?[id number] Study:?CT-Chest W/ 95CC ISOVUE-370 PE PROTOCOL-08/27/2023 4:53:58 PM Ordering Physician:Akosua Lawrence Final Report: INDICATION: Anorexia, vomiting, weight loss. TECHNIQUE: Multiplanar CT pulmonary angiogram was performed after the administration of 95 mL of Isovue 370 intravenous contrast. COMPARISON: None. FINDINGS: Lower neck: The visualized thyroid is unremarkable. Cardiovascular: Contrast opacification of the pulmonary arterial tree is adequate. Heart size is normal. Thoracic aorta and pulmonary artery are normal in caliber. No significant atherosclerotic calcifications of the aortic arch. Mild coronary arterial calcifications. No large central pulmonary embolus. Mediastinum and lymph nodes: Unremarkable. No pathologic mediastinal or hilar lymphadenopathy by size criteria. Lungs: No focal consolidation. Dependent atelectasis. Linear bandlike opacification of the lung bases bilaterally, likely subsegmental atelectasis and/or scarring. Trachea: Patent and midline. Mild diffuse peribronchial wall thickening. Pleura: No pleural effusions or pneumothorax Chest wall: Unremarkable. Mild gynecomastia. Mild pectus excavatum. Bones: No acute osseous abnormalities. Mild degenerative changes of the thoracic spine. Posterior thoracic realignment hardware. Mild dextroscoliosis of the thoracic spine. Upper abdomen: Please refer to separately dictated report on the CT of the abdomen and pelvis for full discussion of the abdominopelvic findings. No reflux of contrast material into the IVC. IMPRESSION: 1. No pulmonary embolus. No CT evidence of right heart strain. 2. No acute intrathoracic pathology. 3. Mild coronary arterial calcifications. Advise correlation with ASCVD evaluation. Please note that all CT scans at this facility use dose modulation, iterative reconstruction, and/or weight-based dosing when appropriate to reduce radiation dose to as low as reasonably achievable. Dictated by Tiago Hinkle MD @ 08/27/2023 5:13:14 PM Signed by:?Taigo Hinkle MD @08/27/2023 5:13:14 PM (Electronic Signature)
[2023-08-27 16:44] LABS: Albumin* 4.2 g/dL (3.3-5.0); Chloride* 86 mmol/L (96-114)
[2023-08-27 16:45] LABS: Sodium* 132 mmol/L (135-149)
[2023-08-27 16:46] LABS: Creatinine* 0.7 mg/dL (0.5-1.5); Est. Creatinine Clearance* 108.86; Estimated Glomerular Filt Rate 107 ml/min
[2023-08-27 16:47] LABS: Alkaline Phosphatase* 213 U/L (40-150); Anion Gap 10 mEq/L (7-15); Aspartate Amino Transferase* 71 U/L (12-35); Bilirubin Direct* 0.7 mg/dL (0.0-0.5); Bilirubin Total* 1.5 mg/dL (0.1-1.5); Carbon Dioxide* 36 mmol/L (20-32); Total Protein* 8.4 g/dL (6.0-8.3)
[2023-08-27 16:48] LABS: Alanine Aminotransferase* 22 U/L (4-50); Blood Urea Nitrogen* 16 mg/dL (7-30); Calcium* 8.3 mg/dL (8.4-10.6); Glucose* 107 mg/dL (60-115); Lipase* 254 U/L (23-300); Magnesium* 1.6 mg/dL (1.5-2.6)
--- NOTE | 2023-08-27 16:55 | ED.NURSE ---
Potassium of 2.8. notified
[2023-08-27 17:01] LABS: C Reactive Protein* 19.2 mg/dL (0.5-1.0); Ethanol* < 0.01 % (0.01-0.03); Potassium* 2.8 mmol/L (3.6-5.1); Troponin I* < 0.01 ng/mL (0.01-0.04)
[2023-08-27] MEDS: PANTOPRAZOLE SODIUM 40 MG INJ 80 MG IVP (17:18)
[2023-08-27] MEDS: POTASSIUM CHLORIDE 10 MEQ/100 ML PIGGYBACK 100 MEQ IVPB ×3 (17:46→23:24)
--- NOTE | 2023-08-27 19:05 | CT_ITS ---
Patient: RENUKA MEJIA Facility:?[facility] Patient ID:?[id number] Site Patient ID:?[id number] Site :?[id number] Study:?CT-Head W/O-08/27/2023 7:25:16 PM Ordering Physician:BORIS Final Report: INDICATION: Confusion, vomiting TECHNIQUE: Noncontrast axial CT of the head. Coronal and sagittal reformats. Bone and soft tissue algorithms. COMPARISON: No relevant comparison studies available at this institution. FINDINGS: A couple of small areas of encephalomalacia are noted at the anterolateral left superior temporal gyrus, and posteroinferior left inferior temporal gyrus (series 4 images 11-14). The ventricles and cortical sulci are otherwise normal in configuration. No midline shift or mass effect, hydrocephalus or herniation. Preserved leon-white matter differentiation. Unremarkable white matter attenuation. Major intracranial vasculature is unremarkable. Midline structures appear within normal limits. Bony calvarium is grossly intact. Clear visualized paranasal sinuses and mastoid air cells. Unremarkable orbits. IMPRESSION: 1. No CT evidence of acute intracranial abnormality. 2. Small areas of encephalomalacia at the left temporal lobe, presumably sequela of remote ischemic/traumatic insult. Please note that all CT scans at this facility use dose modulation, iterative reconstruction, and/or weight-based dosing when appropriate to reduce radiation dose to as low as reasonably achievable. Dictated by Linda Walters MD @ 08/27/2023 7:51:17 PM Signed by:?Linda Walters MD @08/27/2023 7:51:17 PM (Electronic Signature)
[2023-08-27] MEDS: METOCLOPRAMIDE HCL 5 MG/ML INJ 10 MG IVP (21:49)
[2023-08-27] MEDS: 0.9 % SODIUM CHLORIDE 1000 ml 1,000 ML 125 ML IV (21:49)
--- NOTE | 2023-08-27 23:19 | P.IMHP_ITS ---
Hospitalist- H&P: HPI History of Present Illness Date Seen: 08/28/23 Chief complaint: General malaise, npo, vomiting Narrative: ADMISSION HISTORY AND PHYSICAL - HOSPITALIST Chief Complaint: General malaise, nausea vomiting and weight loss HPI: 58-year-old male presents to our ER with family. He was living in [place] until 48 hours prior to admission. A concerned sister and nephew traveled to [place] to get Oswaldo after recent hospitalization at had failed to identify what was going on with him or improve his clinical status. Oswaldo can give very little history upon admission. He is febrile. There is no family bedside. What I can gather is that he has had nausea and vomiting with poor appetite and weight loss for about 6 weeks. He was evaluated in the emergency room, it is unclear if he was admitted. Apparently he had a CT that showed liver enlargement any had some electrolyte abnormalities. He only takes metoprolol for atrial fibrillation. He is not anticoagulated. His heavy drinker. Said he has felt too ill to drink for the last 7-10 days. Upon arrival in our ED he is hemodynamically stable. He is afebrile initially. He is on room air. His workup included a head CT, chest CT and abdominal pelvic CT. There is some concerning lymph nodes found in his hepatic biliary region. Otherwise no acute findings. No specific mention of liver or pancreas abnormality. His LFTs are abnormal as is his INR. His lipase is normal. He does have a mild white count and elevated CRP. It was only upon admission that we noted a significant fever of almost 103. At that time he blood cultures were drawn and broad-spectrum antibiotics were started. ER COURSE: Imaging. Labs. IV PPI. Potassium replacement. Fluids. CODE STATUS: FULL CODE EMERGENCY CONTACT PLAN: Balbir Abbott? Son?Rel to [facility]? [phone]?Cell Phone? This states son. He denies having children. The ER note says this is his nephew. I've updated the PFSH, medications and allergies in the Expanse tabs. INVESTIGATIONS: LABS/MICRO/ECG/IMAGING CBC reveals a mild leukocytosis of 11.98, neutrophil predominant (12.0 on 08/06 in [place]) Hemoglobin normal Platelet count normal INR 1.40, (PT 15.1 INR 1.4, on 08/06 in [place]) Sodium 132 (129 on 08/06 in [place]) Potassium 2.8 (3.2 on 08/06 in [place]) Normal renal function Lactate 2.0 Normal magnesium Normal total bili with a mild bump in his direct bili. AST 71, (78 on 08/06 in [place]) Alk-phos 213 (225 on 08/06 in [place]) Ammonia undetectable Troponin normal CRP 19.2 Normal albumin and lipase Normal acute viral hepatitis panel on 08/06 in [place] Negative alcohol CTA IMPRESSION: 1. No pulmonary embolus. No CT evidence of right heart strain. 2. No acute intrathoracic pathology. 3. Mild coronary arterial calcifications. Advise correlation with ASCVD evaluation. CT AP Impression: Enlarged portacaval node and borderline enlarged hepatopancreatic node, consider pancreatitis or cholecystitis. Recommend appropriate laboratory correlation and further imaging as clinically warranted. CT Head 1. No CT evidence of acute intracranial abnormality. 2. Small areas of encephalomalacia at the left temporal lobe, presumably sequela of remote ischemic/traumatic insult. REVIEW OF SYSTEMS: 12-point ROS completed with patient and negative unless otherwise stated in HPI or below. PHYSICAL EXAM: CONSTITUTIONAL: alert, mildly altered - thinks [place] is in [place]. doesn't want to chat. FEBRILE. VITAL SIGNS: see record. HEENT: Normocephalic, atraumatic. PERRL, EOMI, conjunctivae pink, no scleral icterus. Ears and nose externally normal. Pharynx normal. NECK: No JVD. No carotid bruit, no thyromegaly, no adenopathy. CHEST: Clear to auscultation bilaterally HEART: S1 and S2 normal. No harsh murmurs. minimal edema Abdomen: soft. no peritoneal signs. flushed across his back and abdomen. febrile. MUSCULOSKELETAL: No gross joint deformity or swelling. NEURO: Cranial nerves intact. Grossly intact. No asymmetric findings. SKIN: flushed. PSYCHIATRIC: flat, ill. ADMIT TO MEDSURG: FLOOR CARE DVT: Lovenox GI: PO intake Time spent: Today I spent 75 minutes seeing the patient, discussing the patient with ER staff, reviewing Expanse and EPIC notes/diagnostics, discussing the care plan with our care time that includes social work, PT/OT, pharmacy, RT, long-term and documenting my impressions and plan in the medical record. [facility] Medical History (Updated 08/28/23 @ 00:47 by Kamla Mccann MD) Alcohol use disorder ?F10.90 - Alcohol use, unspecified, uncomplicated (ICD-10) Surgical History (Updated 08/27/23 @ 23:49 by Kamla Mccann MD) H/O lumbosacral spine surgery ?Z98.890 - Other specified postprocedural states (ICD-10) History of bilateral hip arthroplasty ?Z96.643 - Presence of artificial hip joint, bilateral (ICD-10) Status post ablation of atrial fibrillation ?Z98.890 - Other specified postprocedural states (ICD-10) ?Z86.79 - Personal history of other diseases of the circulatory system (ICD- 10) Social History What is your current living situation?: I presently have a place to live Problems where you live: declined to answer Problems where you live details: didn't answer In the past 12 months, utilities in danger of being shut off: declined to answer In past 12 months, lack of transportation kept you from medical appts, meetings, work, or getting things needed for daily living: no In the past 12 mos, have been you worried that your food would run out before you had money to buy more?: never true In the past 12 mos, the food you bought just didn't last and you didn't have money to buy more?: never true Smoking Status: Never smoker How often do you have a drink containing alcohol: 4 or more times a week Alcohol type: hard liquor Alcohol type details: rum How many standard drinks containing alcohol do you have on a typical day: 5 or 6 How often do you have six or more drinks on one occasion: Never AUDIT-C Alcohol total score: 6 Non-prescribed substance use: denies use Caffeine: Yes (coffee) How often does anyone, including family, friends and others, physically hurt you : never How often does anyone, including family, friends and others, insult or talk down to you: never How often does anyone, including family, friends and others, threaten you with harm: never How often does anyone, including family, friends and others, scream or curse at you: never service: Yes Meds Home Medications and Allergies Home Medications Medication Instructions Recorded Confirmed Type metoprolol succinate 100 mg 100 mg PO DAILY 08/27/23 08/27/23 History tablet,extended release 24 hr ondansetron HCl 8 mg tablet 8 mg PO TID 08/27/23 08/27/23 History Allergies Allergy/AdvReac Type Severity Reaction Status Date / Time No Known Drug Allergies Allergy Verified 08/27/23 14:24 Exam Const: Vital Signs, click to edit/add: Vital Signs - 24 hr 08/27/23 14:16 08/27/23 15:54 08/27/23 16:00 Temperature 97.8 F Pulse Rate 89 87 Pulse Rate [Pulse Oximeter] 99 Respiratory Rate 18 Blood Pressure Blood Pressure [Ri ght Upper Arm] 114/75 Pulse Oximetry 87 L 98 97 Oxygen Delivery Me thod Room Air 08/27/23 16:01 08/27/23 16:15 08/27/23 16:30 Temperature Pulse Rate 88 87 85 Pulse Rate [Pulse Oximeter] Respiratory Rate Blood Pressure 115/81 Blood Pressure [Ri ght Upper Arm] Pulse Oximetry 96 96 96 Oxygen Delivery Me thod 08/27/23 16:31 08/27/23 17:00 08/27/23 17:01 Temperature Pulse Rate 87 86 83 Pulse Rate [Pulse Oximeter] Respiratory Rate Blood Pressure 119/83 125/97 H Blood Pressure [Ri ght Upper Arm] Pulse Oximetry 97 93 94 Oxygen Delivery Me thod 08/27/23 17:15 08/27/23 17:30 08/27/23 17:32 Temperature Pulse Rate 83 89 87 Pulse Rate [Pulse Oximeter] Respiratory Rate Blood Pressure 96/62 Blood Pressure [Ri ght Upper Arm] Pulse Oximetry 96 97 97 Oxygen Delivery Me thod 08/27/23 17:45 08/27/23 18:00 08/27/23 18:02 Temperature Pulse Rate 87 86 86 Pulse Rate [Pulse Oximeter] Respiratory Rate Blood Pressure 133/94 H Blood Pressure [Ri ght Upper Arm] Pulse Oximetry 98 97 96 Oxygen Delivery Me thod 08/27/23 18:15 08/27/23 18:30 08/27/23 18:31 Temperature Pulse Rate 88 90 89 Pulse Rate [Pulse Oximeter] Respiratory Rate Blood Pressure 130/89 Blood Pressure [Ri ght Upper Arm] Pulse Oximetry 96 95 97 Oxygen Delivery Me thod 08/27/23 18:45 08/27/23 19:00 08/27/23 19:01 Temperature Pulse Rate 90 93 91 Pulse Rate [Pulse Oximeter] Respiratory Rate Blood Pressure 113/83 Blood Pressure [Ri ght Upper Arm] Pulse Oximetry 96 97 95 Oxygen Delivery Co thod 08/27/23 19:15 08/27/23 19:30 08/27/23 19:34 Temperature Pulse Rate 90 95 94 Pulse Rate [Pulse Oximeter] Respiratory Rate Blood Pressure Blood Pressure [Ri ght Upper Arm] Pulse Oximetry 95 93 88 Oxygen Delivery Co thod 08/27/23 20:11 08/27/23 20:15 08/27/23 20:30 Temperature Pulse Rate 108 H 108 H 114 H Pulse Rate [Pulse Oximeter] Respiratory Rate Blood Pressure Blood Pressure [Ri ght Upper Arm] Pulse Oximetry 96 96 95 Oxygen Delivery Co thod 08/27/23 20:34 08/27/23 20:45 08/27/23 21:00 Temperature Pulse Rate 114 H 117 H 122 H Pulse Rate [Pulse Oximeter] Respiratory Rate Blood Pressure Blood Pressure [Ri ght Upper Arm] Pulse Oximetry 96 94 [facility] 21:54 08/27/23 22:00 08/27/23 22:15 Temperature Pulse Rate 126 H 126 H 126 H Pulse Rate [Pulse Oximeter] Respiratory Rate Blood Pressure Blood Pressure [Ri ght Upper Arm] Pulse Oximetry 94 96 92 [facility] - [facility]: Result Labs Labs: Short CBC 08/27/23 Range/Units 15:50 WBC 11.98 H (4.50-11.00) K/uL Hgb 14.9 (13.5-17.5) gm/dL Hct 43.1 (37.0-53.0) % Plt Count 309 (140-440) K/uL BMP 08/27/23 15:50 Sodium 132 L Potassium 2.8 L* Chloride 86 L Carbon Dioxide 36 H BUN 16 Creatinine 0.7 Glucose 107 Calcium 8.3 L Cardiac Enzymes 08/27/23 Range/Units 15:50 Troponin I < 0.01 L (0.01-0.04) ng/mL Liver Function 08/27/23 Range/Units 15:50 Total Bilirubin 1.5 (0.1-1.5) mg/dL Direct Bilirubin 0.7 H (0.0-0.5) mg/dL AST 71 H (12-35) U/L ALT 22 (4-50) U/L Alkaline Phosphatase 213 H (40-150) U/L Albumin 4.2 (3.3-5.0) g/dL Assessment and Plan Assessment and plan (1) Febrile illness: Problem comment: 102.8 upon arrival to the floor, not previously noted to be febrile. hemodynamically stable. BC x 2 ordered Zosyn, Vanc ordered source: bacteremia, urinary, hepatobiliary US ordered for am consider MRCP, EGD trend clinical course, labs, consider surgery consult consider ID discussion and geographic infections ([facility]) Status: Acute (2) Elevated LFTs: Problem comment: transaminitis from other source of infection or primary hepatobiliary source? alcoholic liver disease? u/s ordered broad spectrum abx INR elevation points to hepatobiliary, more chronic. consider EGD/MRCP Status: Acute (3) Acute hypokalemia: Problem comment: replaced; trend poor intake; vomiting Status: Acute (4) Hyponatremia: Problem comment: trend, getting saline poor intake, vomiting Status: Acute (5) Alcohol use disorder: Problem comment: likely outside window for withdrawal Status: Acute (6) Weight loss: Problem comment: poor intake/appetite. unclear if febrile illness is new or ongoing. consider ID discussion and geographic infections ([facility]) Status: Acute
[2023-08-28] VITALS (15 sets, daily range): BP systolic 95–128; BP diastolic 67–94; PULSE 73–107; RESP 16–22; TEMP 36.8–38.9; O2SAT 92–100; BMI 27.3
--- NOTE | 2023-08-28 | US_ITS ---
Patient: RENUKA MEJIA Facility:?[facility] Patient ID:?[id number] Site Patient ID:?[id number]. Site :?[id number] Study:?US-Abdomen RUQ-08/28/2023 7:12:56 AM Ordering Physician:ARIE SHERMAN M.D. Final Report: INDICATION: Abnormal LFTs. COMPARISON: CT 08/27/2023 TECHNIQUE: Right upper quadrant grayscale and limited color Doppler ultrasound. FINDINGS: Liver: Diffuse mildly heterogeneous increased hepatic parenchymal echotexture which is most commonly due to hepatic steatosis. Differential diagnostic considerations include chronic hepatitis and cirrhosis. 0.9 cm round circumscribed homogeneous echogenic focus in the superior left hepatic lobe (image 110). This corresponds to a similar sized finding on the recent prior CT (series 2; image 36) with peripheral nodular enhancement and is consistent with an hemangioma. Published management guidelines for incidental findings such as this recommend no further workup or ongoing imaging surveillance. No intrahepatic biliary ductal dilatation. Smooth contour. Normal hepatopedal portal venous blood flow. Gallbladder: Nondistended which may account for apparent uniform diffuse gallbladder wall thickening. Gallbladder wall thickening is a nonspecific finding which could be due to underlying liver disease. Free of stones or significant sludge. Normal wall thickness. Negative sonographic Yun sign. CBD: 5mm Pancreas: Normal where visualized. The pancreas is partially obscured and therefore incompletely evaluated. Right Kidney: Normal echotexture. No hydronephrosis. No convincing sonographic evidence of nephrolithiasis. Midline Vasculature: Unremarkable where visualized. Peritoneal Cavity: No significant ascites. Additional Findings: None. IMPRESSION: 1. Mild heterogeneous diffusely increased hepatic parenchymal echotexture consistent with hepatic steatosis. Differential diagnostic considerations discussed above. 2. Nonspecific gallbladder wall thickening discussed above. No sonographic findings suspicious for acute cholecystitis. 3. Incidental finding consistent with a left hepatic lobe hemangioma for which no further workup or ongoing imaging surveillance is indicated based on appearance and size, corresponding to a finding consistent with a hemangioma on the recent prior CT. Dictated by Ervin Martinez MD @ 08/28/2023 7:22:57 AM ----- ADDENDUM ----- ADDENDUM: For clarification, management recommendations for the incidental left hepatic lobe lesion consistent with a hemangioma are for low risk patients. Low risk patients are those with no known primary malignancy or significant underlying liver disease (cirrhosis, hepatitis, alcoholism, nonalcoholic steatohepatitis, sclerosing cholangitis, primary biliary cirrhosis, hemochromatosis or patients with elevated tumor markers). If the patient is not a low risk patient then a nonemergent MRI is recommended for confirmation of the suspected benign imaging characteristics of the incidental left hepatic lobe lesion. Dictated by Ervin Martinez MD @ Aug 28 2023 7:25AM ----- ADDENDUM ----- ADDENDUM: Report received by the ordering provider Dr. GRECO at 0728 hours ILLUSTRATOR SET Dictated by Ervin Martinez MD @ Aug 28 2023 7:46AM Signed by:?Ervin Martinez MD @08/28/2023 7:22:57 AM (Electronic Signature)
[2023-08-28 00:14] LABS: Procalcitonin* 0.53 ng/mL (<0.50)
[2023-08-28] MEDS: POTASSIUM CHLORIDE 10 MEQ/100 ML PIGGYBACK 100 MEQ IVPB (00:32)
[2023-08-28] MEDS: PIPERACILLIN/TAZOBACTAM 3.375 GM in 0.9 % SODIUM CHLORIDE Mini-bag 100 ML IVPB ×4 (00:36→20:05)
[2023-08-28 00:52] LABS: Chloride* 89 mmol/L (96-114); Potassium* 3.4 mmol/L (3.6-5.1); Sodium* 132 mmol/L (135-149)
[2023-08-28 00:55] LABS: Anion Gap 12 mEq/L (7-15); Blood Urea Nitrogen* 14 mg/dL (7-30); Calcium* 8.1 mg/dL (8.4-10.6); Carbon Dioxide* 31 mmol/L (20-32); Creatinine* 0.8 mg/dL (0.5-1.5); Est. Creatinine Clearance* 95.25; Estimated Glomerular Filt Rate 103 ml/min; Glucose* 121 mg/dL (60-115)
[2023-08-28] MEDS: ACETAMINOPHEN 325 MG TABLET PO ×3 (00:55→17:24)
[2023-08-28] MEDS: 0.9 % SODIUM CHLORIDE 1000 ml 1,000 ML 500 ML IV (00:57)
[2023-08-28 01:29] LABS: Lactate* 3.9 mmol/L (0.5-1.9)
[2023-08-28] MEDS: 0.9 % SODIUM CHLORIDE 1000 ml 1,000 ML 125 ML IV ×3 (07:41→22:18)
[2023-08-28] MEDS: OMEPRAZOLE 20 MG CAPSULE DR 40 MG PO (07:41)
--- NOTE | 2023-08-28 08:14 | PC.NURSE ---
Pt arrived to floor approx 2300, lethargic, tachy with temp of 102.8. he was disoriented to place and situation. occasionally got frustrated with admission questions and wouldn't answer, would respond with I don't know, completed to best of ability. Adminstered tylenol for fever, temperature decreased to 98.7 at 0300 and 98.4 @ 0600, however, pt with chills and diaphoretic requiring gown and bedding change due to sweating through and getting wet. NPO since admission, denies pain N/V. denies having alcohol recently. lesions noted on bilateral side of tongue, pt denies pain with these.
[2023-08-28 13:15] LABS: Lactate* 2.7 mmol/L (0.5-1.9)
[2023-08-28 13:17] LABS: Hematocrit 37.7 % (37.0-53.0); Hemoglobin* 12.8 gm/dL (13.5-17.5); Mean Corpuscular HGB Conc 34 gm/dL (32-36); Mean Corpuscular Hemoglobin 33 pg (26-34); Mean Corpuscular Volume 98 fL (80-100); Platelet Count* 251 K/uL (140-440); Red Blood Count 3.83 m/uL (4.30-5.90); White Blood Count* 10.53 K/uL (4.50-11.00)
[2023-08-28 13:20] LABS: Slide Review Reflex No
[2023-08-28 13:34] LABS: Albumin* 3.4 g/dL (3.3-5.0); Sodium* 132 mmol/L (135-149)
[2023-08-28 13:37] LABS: Alkaline Phosphatase* 259 U/L (40-150); Aspartate Amino Transferase* 90 U/L (12-35); Bilirubin Direct* 1.3 mg/dL (0.0-0.5); Bilirubin Total* 1.7 mg/dL (0.1-1.5); Total Protein* 7.1 g/dL (6.0-8.3)
[2023-08-28 13:38] LABS: Alanine Aminotransferase* 26 U/L (4-50)
--- NOTE | 2023-08-28 15:50 | P.EN_ITS ---
Chart Event Note Chart Event Note: Spoke with son, Balbir Abbott, He was able to give more background information on alba. Alba and his current have been in [place] living in a camper since last December. Alba is always been heavy drinker mostly from. However in the last 5 years his alcohol intake and dependence has escalated. His , left him about 6 weeks ago. Friends of the couple who are in [place] called Balbir late last week and said they were worried about alba. 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 He seemed intoxicated every time they saw him. He looked like he had lost a lot a weight, he seemed confused and weak. His son jumped on a plane and went down and encouraged yasmin come back with him. He knows for sure that he has not had any alcohol since 08/24. He said he slept most of the drive to [place]. He came directly to the ER. He said there been very little p.o. intake. No fever that he noted. Alba was able to text on his phone and have some conversations throughout the drive back. However since being back in [place] he seems more confused and weak. His son does not think his dad does any recreational drugs. He is unsure about his sexual history. He said alcohol is been the biggest obstacle in his life. His son states that the weight loss, muscle mass and weakness was the most startling physical finding when he arrived in [place].
--- NOTE | 2023-08-28 16:15 | P.IMPN_ITS ---
Progress Note: A&P Assessment and plan (1) Febrile illness: Problem details: -102.8 upon arrival to the floor, not previously noted to be febrile. hemodynamically stable. -BC x 2 ordered. -Urinalysis and urine culture ordered. -Zosyn, Vanc ordered. -source: bacteremia, urinary, hepatobiliary -Abdominal ultrasound 08/28/2023: IMPRESSION: 1. Mild heterogeneous diffusely increased hepatic parenchymal echotexture consistent with hepatic steatosis. Differential diagnostic considerations discus sed above. 2. Nonspecific gallbladder wall thickening discussed above. No sonographic findings suspicious for acute cholecystitis. 3. Incidental finding consistent with a left hepatic lobe hemangioma for which no further workup or ongoing imaging surveillance is indicated based on appearance and size, corresponding to a finding consistent with a hemangioma on the recent prior CT. -will order MRCP and MR brain without contrast, and consider EGD. -trend clinical course, labs, consider surgery consult -consider ID discussion and geographic infections ([facility]) Status: Acute (2) Elevated LFTs: Problem details: transaminitis from other source of infection or primary hepatobiliary source? alcoholic liver disease? u/s ordered broad spectrum abx INR elevation points to hepatobiliary, more chronic. consider EGD/order MRCP Status: Acute (3) Acute hypokalemia: Problem details: replaced; trend poor intake; vomiting Status: Acute (4) Hyponatremia: Problem details: trend, getting saline poor intake, vomiting Status: Acute (5) Alcohol use disorder: Problem details: likely outside window for withdrawal Status: Acute (6) Weight loss: Problem details: poor intake/appetite. unclear if febrile illness is new or ongoing. consider ID discussion and geographic infections ([facility]) Status: Acute Subjective Date Seen: 08/28/23 Interval history: Admission history of present illness: ?58-year-old male presents to our ER with family. He was living in [place] until 48 hours prior to admission. A concerned sister and nephew traveled to [place] to get Oswaldo after recent hospitalization at had failed to identify what was going on with him or improve his clinical status. Oswaldo can give very little history upon admission. He is febrile. There is no family bedside. What I can gather is that he has had nausea and vomiting with poor appetite and weight loss for about 6 weeks. He was evaluated in the emergency room, it is unclear if he was admitted. Apparently he had a CT that showed liver enlargement any had some electrolyte abnormalities. He only takes metoprolol for atrial fibrillation. He is not anticoagulated. His heavy drinker. Said he has felt too ill to drink for the last 7-10 days. ?Upon arrival in our ED he is hemodynamically stable. He is afebrile initially. He is on room air. His workup included a head CT, chest CT and abdominal pelvic CT. There is some concerning lymph nodes found in his hepatic biliary region. Otherwise no acute findings. No specific mention of liver or pancreas abnormality. His LFTs are abnormal as is his INR. His lipase is normal. He does have a mild white count and elevated CRP. It was only upon admission that we noted a significant fever of almost 103. At that time he blood cultures were drawn and broad-spectrum antibiotics were started. ?ER COURSE: Imaging. Labs. IV PPI. Potassium replacement. Fluids.? Hospital day 2. Admission date 08/27/2023. He tells me he is feeling a little hungry today. Has not had anything to eat or drink since arriving to the hospital. Spiking intermittent fevers. T-max yesterday 102.8? F. T-max this morning 101 ? F. He has since defervesced to 98.6? F. Denies headache, neck discomfort, myalgias, arthralgias, nausea, vomiting, abdominal pain, cough, dyspnea, skin rashes, dysuria, urgency, frequency, hematuria, diarrhea. Exam Narrative: Exam Narrative: I examine him in his hospital room. Appears comfortable and in no acute distress. Alert and oriented to self, place, time, situation. Tells me he has not had anything to drink now for roughly 4 days. Denies history of alcohol withdrawal. Lungs are clear to auscultation. Heart tones with regular rhythm. Abdomen is obese with active bowel sounds, soft, nontender. No focal motor neurologic deficits. Skin is intact without rashes, petechiae, or wounds. Const: Vital Signs, click to edit/add: Vital Signs - 24 hr 08/27/23 16:30 08/27/23 16:31 08/27/23 17:00 Temperature Pulse Rate 85 87 86 Pulse Rate [Pulse Oximeter] Respiratory Rate Blood Pressure 119/83 Blood Pressure [Le ft Arm] Pulse Oximetry 96 97 93 Oxygen Delivery Me thod 08/27/23 17:01 08/27/23 17:15 08/27/23 17:30 Temperature Pulse Rate 83 83 89 Pulse Rate [Pulse Oximeter] Respiratory Rate Blood Pressure 125/97 H Blood Pressure [Le ft Arm] Pulse Oximetry 94 96 97 Oxygen Delivery Me thod 08/27/23 17:32 08/27/23 17:45 08/27/23 18:00 Temperature Pulse Rate 87 87 86 Pulse Rate [Pulse Oximeter] Respiratory Rate Blood Pressure 96/62 Blood Pressure [Le ft Arm] Pulse Oximetry 97 98 97 Oxygen Delivery Me thod 08/27/23 18:02 08/27/23 18:15 08/27/23 18:30 Temperature Pulse Rate 86 88 90 Pulse Rate [Pulse Oximeter] Respiratory Rate Blood Pressure 133/94 H Blood Pressure [Le ft Arm] Pulse Oximetry 96 96 95 Oxygen Delivery Me thod 08/27/23 18:31 08/27/23 18:45 08/27/23 19:00 Temperature Pulse Rate 89 90 93 Pulse Rate [Pulse Oximeter] Respiratory Rate Blood Pressure 130/89 Blood Pressure [Le ft Arm] Pulse Oximetry 97 96 97 Oxygen Delivery Me thod 08/27/23 19:01 08/27/23 19:15 08/27/23 19:30 Temperature Pulse Rate 91 90 95 Pulse Rate [Pulse Oximeter] Respiratory Rate Blood Pressure 113/83 Blood Pressure [Le ft Arm] Pulse Oximetry 95 95 93 Oxygen Delivery Me thod 08/27/23 19:34 08/27/23 20:11 08/27/23 20:15 Temperature Pulse Rate 94 108 H 108 H Pulse Rate [Pulse Oximeter] Respiratory Rate Blood Pressure Blood Pressure [Le ft Arm] Pulse Oximetry 88 96 96 Oxygen Delivery Me thod 08/27/23 20:30 08/27/23 20:34 08/27/23 20:45 Temperature Pulse Rate 114 H 114 H 117 H Pulse Rate [Pulse Oximeter] Respiratory Rate Blood Pressure Blood Pressure [Le ft Arm] Pulse Oximetry 95 96 94 Oxygen Delivery Me thod 08/27/23 21:00 08/27/23 21:54 08/27/23 22:00 Temperature Pulse Rate 122 H 126 H 126 H Pulse Rate [Pulse Oximeter] Respiratory Rate Blood Pressure Blood Pressure [Le ft Arm] Pulse Oximetry 94 94 96 Oxygen Delivery Me thod 08/27/23 22:15 08/27/23 23:07 08/27/23 23:07 Temperature 102.8 F H Pulse Rate 126 H Pulse Rate [Pulse Oximeter] 123 H Respiratory Rate 24 24 Blood Pressure Blood Pressure [Le ft Arm] 115/91 H Pulse Oximetry 92 92 92 Oxygen Delivery Me thod Room Air Room Air 08/28/23 00:03 08/28/23 00:04 08/28/23 03:00 Temperature 98.7 F Pulse Rate Pulse Rate [Pulse Oximeter] 96 Respiratory Rate 20 Blood Pressure Blood Pressure [Le ft Arm] 95/73 Pulse Oximetry 92 92 92 Oxygen Delivery Me thod Room Air Room Air 08/28/23 05:37 08/28/23 07:00 08/28/23 08:01 Temperature 101.6 F H 101.6 F H Pulse Rate 95 Pulse Rate [Pulse Oximeter] 100 Respiratory Rate 20 Blood Pressure Blood Pressure [Le ft Arm] 128/94 H Pulse Oximetry [address] [facility] 08/28/23 09:10 08/28/23 10:27 08/28/23 11:00 Temperature 98.7 F 98.2 F Pulse Rate 90 Pulse Rate [Pulse Oximeter] 85 Respiratory Rate 16 Blood Pressure Blood Pressure [Le ft Arm] 105/73 Pulse Oximetry 97 Oxygen Delivery Me thod Labs Labs: Laboratory Results - last 24 hr 08/27/23 08/27/23 08/28/23 15:50 23:33 00:04 WBC RBC Hgb Hct MCV MCH MCHC Plt Count INR 1.40 H APTT 39 H Sodium 132 L 132 L Potassium 2.8 L* 3.4 L Chloride 86 L 89 L Carbon Dioxide 36 H 31 Anion Gap 10 12 BUN 16 14 Creatinine 0.7 0.8 Estimated Creat Clear 108.86 95.25 Estimated GFR 107 103 Glucose 107 121 H Lactate 3.9 H Calcium 8.3 L 8.1 L Magnesium 1.6 Total Bilirubin 1.5 Direct Bilirubin 0.7 H AST 71 H ALT 22 Alkaline Phosphatase 213 H Ammonia < 9.0 L Troponin I < 0.01 L C-Reactive Protein 19.2 H Total Protein 8.4 H Albumin 4.2 Lipase 254 Procalcitonin 0.53 H Ethyl Alcohol < 0.01 L Lab Acknowledgement Test Added 08/28/23 08/28/23 13:10 13:10 WBC 10.53 RBC 3.83 L Hgb 12.8 L Hct 37.7 MCV 98 MCH 33 MCHC 34 Plt Count 251 INR APTT Sodium 132 L Potassium Cancelled 3.0 L Chloride Carbon Dioxide Anion Gap BUN Creatinine Estimated Creat Clear Estimated GFR Glucose Lactate 2.7 H Calcium Magnesium Total Bilirubin 1.7 H Direct Bilirubin 1.3 H AST 90 H ALT 26 Alkaline Phosphatase 259 H Ammonia Troponin I C-Reactive Protein Total Protein 7.1 Albumin 3.4 Lipase Procalcitonin Ethyl Alcohol Lab Acknowledgement
--- NOTE | 2023-08-28 18:46 | PM.EN ---
Chart Event Note Date Seen: 08/28/23 Chart Event Note: rash on thorax, this is his right upper torso. this was present before either antibiotic was started on 08/26. I noted it evening of admission 08/26 and thought at first related to his fever. not bothering him.
[2023-08-28 19:16] LABS: Amorphous Sediment Urine Few; Appearance Urine Clear (Clear); Bilirubin Urine 1+ (Negative); Blood Urine Negative (Negative); Color Urine Amber (Yellow); Glucose Urine Negative (Negative); Ketones Urine Negative (Negative); Leukocyte Esterase Urine Negative (Negative); Nitrite Urine Negative (Negative); Protein Urine Negative (Negative); RBC Urine 0-2 (0-2); WBC Urine 0-2 (0-5); pH Urine 5.5 (5.0-8.5)
[2023-08-28] MEDS: 0.9 % SODIUM CHLORIDE 1000 ml 1,000 ML IV (20:05)
--- NOTE | 2023-08-28 20:16 | PC.NURSE ---
End of shift [id number] - RN took over care at approximately 1500. Pt alert, oriented, cooperative. Appears fatigued, reports feeling like crap and mentioned to RN that he did not feel better from the previous day. RN noted pt to have a fever of 102F, gave antipyretic medication per JUN with improvement recorded in JUN reassessment. Pt able to transition from NPO to regular diet without reports of nausea/vomiting. Up with standby assistance, walker/gait belt. Able to void during shift. Rash noted by RN across trunk, MD notified, no orders given. Pt appears to be resting comfortably in bed at the end of shift.
[2023-08-28] MEDS: SODIUM CHLORIDE 0.9 % (FLUSH) 10 ML SYRINGE 5 ML IVF (20:23)
[2023-08-28 23:46] LABS: Amphetamine Screen Urine Negative (Negative); Barbiturate Screen Urine Negative (Negative); Benzodiazepines Screen Urine Negative (Negative); Cannabinoid Screen Urine POSITIVE (Negative); Cocaine Screen Urine Negative (Negative); Methadone Screen Urine Negative (Negative); Methamphetamines Screen Urine Negative (Negative); Opiate Screen Urine Negative (Negative); Oxycodone Screen Urine Negative (Negative); Phencyclidine Screen Urine Negative (Negative); Tricyclic Antidepressant Urine Negative (Negative)
[2023-08-29] VITALS (10 sets, daily range): BP systolic 99–117; BP diastolic 59–87; PULSE 73–92; RESP 16–20; TEMP 36.1–36.5; O2SAT 92–99
[2023-08-29] MEDS: POTASSIUM CHLORIDE 10 MEQ/100 ML PIGGYBACK 100 MEQ IVPB ×2 (00:07→01:11)
[2023-08-29] MEDS: CETIRIZINE HCL 10 MG TABLET PO ×3 (00:07→20:53)
[2023-08-29] MEDS: ACETAMINOPHEN 325 MG TABLET PO (01:11)
[2023-08-29] MEDS: PIPERACILLIN/TAZOBACTAM 3.375 GM in 0.9 % SODIUM CHLORIDE Mini-bag 100 ML IVPB ×4 (02:19→20:52)
[2023-08-29] MEDS: OMEPRAZOLE 20 MG CAPSULE DR 40 MG PO (04:59)
[2023-08-29 06:14] LABS: HCO3 VBG 26 mmol/L (21-28); Lactate* 0.9 mmol/L (0.5-1.9); PCO2 VBG 40 mmHG (40-50); PO2 VBG 35.5 mmHG (25-47); pH VBG 7.421 (7.32-7.43)
--- NOTE | 2023-08-29 06:18 | PC.NURSE ---
[id number] Pt more awake this shift, afebrile with prn tylenol administered x1. ambulated to br x1 with walker, gb, sba, tolerated fair, general weakness noted. great urine output this shift, see I/O charting. diaphoretic during the night, gown/sheet change completed, pt afebrile. rash noted to abdomen, back and thighs, asymptomatic to pt. pt c/o calf and feet aching, no swelling or redness noted, both calves symmetrical.
[2023-08-29 06:21] LABS: Basophils Absolute Auto 0.01 K/uL (0.00-0.30); Basophils Percent Auto 0.1 % (0.0-3.0); Eosinophils Absolute Auto 0.35 K/uL (0.00-0.50); Eosinophils Percent Auto 4.7 % (0.0-7.0); Hematocrit 31.6 % (37.0-53.0); Hemoglobin* 10.7 gm/dL (13.5-17.5); Immature Granulocytes Abs Auto 0.04 K/uL (0.00-0.30); Immature Granulocytes Pct Auto 0.5 %; Lymphocytes Percent Auto 7.6 % (20-44); Mean Corpuscular HGB Conc 34 gm/dL (32-36); Mean Corpuscular Hemoglobin 34 pg (26-34); Mean Corpuscular Volume 99 fL (80-100); Monocytes Percent Auto 5.7 % (0.0-11.0); Neutrophils Percent Auto 81.4 % (42.0-72.0); Platelet Count* 225 K/uL (140-440); RDW Coefficient of Variation % 13.1 % (11.5-15.5); Red Blood Count 3.19 m/uL (4.30-5.90); White Blood Count* 7.52 K/uL (4.50-11.00)
[2023-08-29 06:32] LABS: Slide Review Reflex No
[2023-08-29 06:36] LABS: Albumin* 2.6 g/dL (3.3-5.0); Chloride* 103 mmol/L (96-114); INR 1.48 (0.91-1.10); Prothrombin Time 18.9 Seconds; Sodium* 132 mmol/L (135-149)
[2023-08-29 06:39] LABS: Amylase* 70 U/L (18-89); Anion Gap 5 mEq/L (7-15); Carbon Dioxide* 24 mmol/L (20-32); Creatinine* 0.8 mg/dL (0.5-1.5); Est. Creatinine Clearance* 95.25; Estimated Glomerular Filt Rate 103 ml/min; Total Protein* 5.6 g/dL (6.0-8.3)
[2023-08-29 06:40] LABS: Alanine Aminotransferase* 23 U/L (4-50); Alkaline Phosphatase* 209 U/L (40-150); Aspartate Amino Transferase* 52 U/L (12-35); Bilirubin Direct* 0.7 mg/dL (0.0-0.5); Blood Urea Nitrogen* 11 mg/dL (7-30); Gamma Glutamyl Transpeptidase* 474 U/L (8-55); Glucose* 77 mg/dL (60-115); Lipase* 119 U/L (23-300); Phosphorus* 3.3 mg/dL (2.5-4.5)
[2023-08-29 06:49] LABS: Troponin I* < 0.01 ng/mL (0.01-0.04)
[2023-08-29 06:51] LABS: Procalcitonin* 5.38 ng/mL (<0.50)
[2023-08-29 06:53] LABS: Potassium* 2.5 mmol/L (3.6-5.1)
[2023-08-29 06:54] LABS: C Reactive Protein* 17.2 mg/dL (0.5-1.0)
--- NOTE | 2023-08-29 07:00 | MR_ITS ---
Patient: RENUKA MEJIA Facility:?[facility] Patient ID:?[id number] Site Patient ID:?[id number]. Site :?[id number] Study:?MRI-Abdomen W/O MRCP-08/29/2023 11:20:07 AM Ordering Physician:ARIE SHERMAN Final Report: INDICATION: Abnormal liver function tests. COMPARISON: CT abdomen and pelvis with intravenous contrast August 27, 2023; ultrasound examination. CT abdomen August 28, 2023. Technique : MRCP. FINDINGS: Fatty infiltration of the liver. Hepatomegaly with the liver measuring 22.4 cm in maximum vertical dimension. Tiny gallstones. No pericholecystic fluid collections. No evidence of dilatation of the intra or extrahepatic biliary duct system. No evidence of dilatation of the pancreatic duct. 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 Instrumentation lower thoracic spine. IMPRESSION: 1. Diffuse fatty infiltration of the liver. 2. Hepatomegaly with the liver measuring 22.4 cm in maximum vertical dimension. 3. Tiny gallstones without any MR evidence of cholecystitis or pericholecystic fluid collections. 4. No evidence of biliary duct dilatation. 5. No evidence of pancreatic ductal dilatation. Dictated by Chiqui Lancaster MD @ 08/29/2023 12:00:15 PM Signed by:?Chiqui Lancaster MD @08/29/2023 12:00:15 PM (Electronic Signature)
--- NOTE | 2023-08-29 07:00 | MR_ITS ---
Patient: RENUKA MEJIA Facility:?[facility] Patient ID:?[id number] Site Patient ID:?[id number]. Site :?[id number] Study:?MRI-Head W/O-08/29/2023 11:19:21 AM Ordering Physician:ARIE SHERMAN Final Report: Indication: Fever, confusion Technique: Noncontrast sagittal T1 weighted, axial T2 fast spin echo, FLAIR, and diffusion weighted images of the head. Comparison: CT 08/27/2023 Findings: Mild patchy regions of increased T2 signal within the periventricular and subcortical white matter of both cerebral hemispheres. Mild cerebral volume loss. Small foci of encephalomalacia along the left superior and inferior temporal gyrus cortex (series 2, image 34 and 35). The pituitary gland, optic chiasm, cerebellar tonsils are unremarkable. Small pineal gland cyst. The ventricles, sulci and gyri are of normal size, shape and contour for age and degree of atrophy. No regions of restricted diffusion. Midline structures are centrally located. No convincing evidence of suspicious intra- or extra-axial fluid collections. Small retention cyst in the right nasopharynx. Rightward deviation of the nasal septum. Impression: 1. No radiographic evidence of acute intracranial abnormalities. 2. Mild supratentorial white matter changes are non-specific but statistically most likely related to small vessel ischemic disease. Mild cerebral volume loss. 3. Small foci of encephalomalacia along the left superior and inferior temporal gyrus cortex may represent chronic posttraumatic contusions or chronic ischemic infarcts Dictated by Alberto Jaeger MD @ 08/29/2023 11:24:35 AM Signed by:?Alberto Jaeger MD @08/29/2023 11:24:35 AM (Electronic Signature)
[2023-08-29 07:10] LABS: Ionized Calcium* 0.85 mmol/L (1.11-1.30)
[2023-08-29 07:24] LABS: Magnesium* 1.2 mg/dL (1.5-2.6)
[2023-08-29] MEDS: POTASSIUM BICARB 25 MEQ EFFERVESCENT TAB 50 MEQ PO (07:30)
[2023-08-29] MEDS: CALCIUM GLUC 1,000MG/50 ML 1,000 MG/50 ML BAG 100 MG IVPB ×3 (07:32→22:41)
[2023-08-29] MEDS: 0.9 % SODIUM CHLORIDE 1000 ml 1,000 ML 125 ML IV ×2 (07:39→20:53)
[2023-08-29 09:39] LABS: Amphetamine Screen Urine Negative (Negative); Barbiturate Screen Urine Negative (Negative); Benzodiazepines Screen Urine Negative (Negative); Cannabinoid Screen Urine POSITIVE (Negative); Cocaine Screen Urine Negative (Negative); Methadone Screen Urine Negative (Negative); Methamphetamines Screen Urine Negative (Negative); Opiate Screen Urine Negative (Negative); Oxycodone Screen Urine Negative (Negative); Phencyclidine Screen Urine Negative (Negative); Tricyclic Antidepressant Urine Negative (Negative)
--- NOTE | 2023-08-29 10:38 | P.IMPN_ITS ---
Progress Note: A&P Assessment and plan (1) Febrile illness: Problem details: - 102.8 upon admission, last fever 102 on 08/28/23 at 1700 - hemodynamically stable - as of 08/28: blood and urine cultures negative - elevated procalcitonin, normal WBC - viral studies pending - Fabiano Donis (08/26) - no evidence of infectious process on imaging (abdominal ultrasound, CT, chest CTA, brain MRI, abdominal MRCP) Status: Acute (2) Elevated LFTs: Problem details: - likely 2/2 ETOH use disorder - reassuring MRCP Status: Acute (3) Acute hypokalemia: Problem details: - replace and follow - also receiving Magnesium and Calcium Status: Acute (4) Alcohol use disorder: Problem details: - unlikely to withdraw given last intake 08/24 - stigmata of anemia, elevated INR, elevated liver enzymes and GGT, h yponatremia Status: Acute (5) Weight loss: Problem details: - poor intake/appetite. unclear if febrile illness is new or ongoing. - consider ID discussion and geographic infections ([facility]) Status: Acute (6) Rash: Problem details: - noted prior to antibiotic administration, appears consistent with viral process; will add COVID/FLU/RSV/mono to labs Status: Acute Plan - per above - therapies following - nita Mcgregor ([phone]) updated by phone, questions answered Subjective Date Seen: 08/29/23 Interval history: Oswaldo was admitted to the hospital on 08/26 with fever and weight loss in the setting of acute on chronic alcohol abuse. Workup has not revealed source of fever; he is tolerating IV vancomycin and Zosyn. Tmax 102 at 1700 yesterday. Blood and urine cultures remained negative. Notably, procalcitonin has increased to 5 This morning, he is feeling significantly better than when he was admitted. He is hungry and tolerating p.o. intake. MRI brain performed given significant confusion on admission: small foci of encephalomalacia along the left superior and inferior temporal gyrus cortex may represent chronic posttraumatic contusions or chronic ischemic infarcts per formal radiology read, no acute findings. Hepatomegaly noted on MRI abdomen, no acute findings. Patient is receiving IV and oral electrolyte replacement. He denies any concerns for hospitalist team this morning. Exam Narrative: Exam Narrative: GEN: Alert and sitting comfortably in bedside chair HEENT: EOMIs bilaterally, + scleral icterus CV: RRR, No concerning murmurs R: LCTA bilaterally without concerning wheezing, air movement adequate Ab: soft, tolerates palpation, + hepatomegaly Ext: wwp, no concerning edema Skin: Erythematous reticular rash noted on right-side of trunk and back. No vesicular features, + blanching, no ttp Neuro: No focal deficits Psych: Appropriate Const: Vital Signs, click to edit/add: Vital Signs - 24 hr 08/28/23 11:00 08/28/23 15:00 08/28/23 17:24 Temperature 98.2 F 102.0 F H 102.0 F H Pulse Rate Pulse Rate [Pulse Oximeter] 85 107 H Respiratory Rate 16 20 Blood Pressure [Le ft Arm] 105/73 111/75 Pulse Oximetry 97 96 Oxygen Delivery Me thod Room Air 08/28/23 18:44 08/28/23 19:00 08/28/23 20:14 Temperature 99.2 F 98.5 F Pulse Rate 107 H Pulse Rate [Pulse Oximeter] 84 Respiratory Rate 18 Blood Pressure [Le ft Arm] 95/67 Pulse Oximetry 95 Oxygen Delivery Me thod Room Air 08/28/23 23:00 08/28/23 23:00 08/29/23 00:04 Temperature 98.4 F Pulse Rate 73 Pulse Rate [Pulse Oximeter] 82 Respiratory Rate 22 Blood Pressure [Le ft Arm] 115/88 Pulse Oximetry 94 92 Oxygen Delivery Az thod Room Air 08/29/23 03:00 08/29/23 07:00 08/29/23 09:10 Temperature 97.0 F L 97.1 F L Pulse Rate 83 Pulse Rate [Pulse Oximeter] 73 76 Respiratory Rate 20 18 Blood Pressure [Le ft Arm] 117/87 113/75 Pulse Oximetry 98 97 Oxygen Delivery Me thod Room Air Room Air Labs Labs: Laboratory Results - last 24 hr 08/28/23 08/28/23 08/28/23 13:10 13:10 18:27 WBC 10.53 RBC 3.83 L Hgb 12.8 L Hct 37.7 MCV 98 MCH 33 MCHC 34 RDW Coeff of Lesley Plt Count 251 Neut % (Auto) Lymph % (Auto) [place] % (Auto) Eos % (Auto) Baso % (Auto) Neut # (Auto) Lymph # (Auto) [place] # (Auto) Eos # (Auto) Baso # (Auto) Abs Immat Gran (auto) Imm/Tot Granulo (auto) INR VBG pH VBG pCO2 VBG pO2 VBG HCO3 Sodium 132 L Potassium Cancelled 3.0 L Chloride Carbon Dioxide Anion Gap BUN Creatinine Estimated Creat Clear Estimated GFR Glucose Lactate 2.7 H Calcium Ionized Calcium Robert Phosphorus Magnesium Total Bilirubin 1.7 H Direct Bilirubin 1.3 H GGT AST 90 H ALT 26 Alkaline Phosphatase 259 H Troponin I C-Reactive Protein Total Protein 7.1 Albumin 3.4 Amylase Lipase Procalcitonin TSH Urine Color Pam A Urine Appearance Clear Urine pH 5.5 Ur Specific [place] 1.010 Urine Protein Negative Urine Glucose (UA) Negative Urine Ketones Negative Urine Blood Negative Urine Nitrite Negative Urine Bilirubin 1+ A Urine Urobilinogen 1.0 Ur Leukocyte Esterase Negative Urine RBC 0-2 Urine WBC 0-2 Ur Squamous Epith Cells None Amorphous Sediment Few A Urine Bacteria None Urine Opiates Screen Ur Oxycodone Screen Urine Methadone Screen Ur Barbiturates Screen U Tricyclic Antidepress Ur Phencyclidine Scrn Ur Amphetamines Screen U Methamphetamines Scrn U Benzodiazepines Scrn Urine Cocaine Screen U Marijuana (THC) Screen Ur Drug Screen Comment Lab Acknowledgement 08/28/23 08/29/23 08/29/23 21:00 04:00 05:52 WBC 7.52 RBC 3.19 L Hgb 10.7 L Hct 31.6 L MCV 99 MCH 34 MCHC 34 RDW Coeff of Lesley 13.1 Plt Count 225 Neut % (Auto) 81.4 H Lymph % (Auto) 7.6 L [place] % (Auto) 5.7 Eos % (Auto) 4.7 Baso % (Auto) 0.1 Neut # (Auto) 6.10 Lymph # (Auto) 0.60 L [place] # (Auto) 0.40 Eos # (Auto) 0.35 Baso # (Auto) 0.01 Abs Immat Gran (auto) 0.04 Imm/Tot Granulo (auto) 0.5 INR 1.48 H VBG pH 7.421 VBG pCO2 40 VBG pO2 35.5 VBG HCO3 26 Sodium 132 L Potassium 2.5 L* Chloride 103 Carbon Dioxide 24 Anion Gap 5 L BUN 11 Creatinine 0.8 Estimated Creat Clear 95.25 Estimated GFR 103 Glucose 77 Lactate 0.9 Calcium 6.0 L Ionized Calcium Robert 0.85 L Phosphorus 3.3 Magnesium 1.2 L Total Bilirubin 1.0 Direct Bilirubin 0.7 H GGT 474 H AST 52 H ALT 23 Alkaline Phosphatase 209 H Troponin I < 0.01 L C-Reactive Protein 17.2 H Total Protein 5.6 L Albumin 2.6 L Amylase 70 Lipase 119 Procalcitonin 5.38 H TSH 4.320 H Urine Color Urine Appearance Urine pH Ur Specific [place] Urine Protein Urine Glucose (UA) Urine Ketones Urine Blood Urine Nitrite Urine Bilirubin Urine Urobilinogen Ur Leukocyte Esterase Urine RBC Urine WBC Ur Squamous Epith Cells Amorphous Sediment Urine Bacteria Urine Opiates Screen Negative Negative Ur Oxycodone Screen Negative Negative Urine Methadone Screen Negative Negative Ur Barbiturates Screen Negative Negative U Tricyclic Antidepress Negative Negative Ur Phencyclidine Scrn Negative Negative Ur Amphetamines Screen Negative Negative U Methamphetamines Scrn Negative Negative U Benzodiazepines Scrn Negative Negative Urine Cocaine Screen Negative Negative U Marijuana (THC) Screen POSITIVE A POSITIVE A Ur Drug Screen Comment See Note See Note Lab Acknowledgement 08/29/23 08/29/23 06:57 07:04 WBC RBC Hgb Hct MCV MCH MCHC RDW Coeff of Lesley Plt Count Neut % (Auto) Lymph % (Auto) [place] % (Auto) Eos % (Auto) Baso % (Auto) Neut # (Auto) Lymph # (Auto) [place] # (Auto) Eos # (Auto) Baso # (Auto) Abs Immat Gran (auto) Imm/Tot Granulo (auto) INR VBG pH VBG pCO2 VBG pO2 VBG HCO3 Sodium Potassium Chloride Carbon Dioxide Anion Gap BUN Creatinine Estimated Creat Clear Estimated GFR Glucose Lactate Calcium Ionized Calcium Robert Phosphorus Magnesium Total Bilirubin Direct Bilirubin GGT AST ALT Alkaline Phosphatase Troponin I C-Reactive Protein Total Protein Albumin Amylase Lipase Procalcitonin TSH Urine Color Urine Appearance Urine pH Ur Specific [place] Urine Protein Urine Glucose (UA) Urine Ketones Urine Blood Urine Nitrite Urine Bilirubin Urine Urobilinogen Ur Leukocyte Esterase Urine RBC Urine WBC Ur Squamous Epith Cells Amorphous Sediment Urine Bacteria Urine Opiates Screen Ur Oxycodone Screen Urine Methadone Screen Ur Barbiturates Screen U Tricyclic Antidepress Ur Phencyclidine Scrn Ur Amphetamines Screen U Methamphetamines Scrn U Benzodiazepines Scrn Urine Cocaine Screen U Marijuana (THC) Screen Ur Drug Screen Comment Lab Acknowledgement Test Added Test Added
[2023-08-29 12:32] LABS: Chloride* 103 mmol/L (96-114); Sodium* 134 mmol/L (135-149)
[2023-08-29 12:35] LABS: Creatinine* 0.8 mg/dL (0.5-1.5); Est. Creatinine Clearance* 95.25; Estimated Glomerular Filt Rate 103 ml/min
[2023-08-29 12:36] LABS: Anion Gap 6 mEq/L (7-15); Blood Urea Nitrogen* 10 mg/dL (7-30); Calcium* 6.6 mg/dL (8.4-10.6); Carbon Dioxide* 25 mmol/L (20-32); Glucose* 94 mg/dL (60-115); Magnesium* 1.6 mg/dL (1.5-2.6)
[2023-08-29 12:40] LABS: Potassium* 2.9 mmol/L (3.6-5.1)
[2023-08-29] MEDS: POTASSIUM BICARB 25 MEQ EFFERVESCENT TAB PO ×6 (14:00→22:49)
--- NOTE | 2023-08-29 15:02 | PC.NURSE ---
PT tolerating a regular diet with no nausea or vomiting. PT has increased his urine output compared to yesterday. Ca, Mag, and K have been replaced per MD orders. MRI was completed today. PT has been afebrile throughout the shift.
[2023-08-29 15:28] LABS: PCR FLU A Negative PCR FLU A (Negative); PCR FLU B Negative PCR FLU B (Negative); PCR RSV Negative PCR RSV (Negative); SARS PCR* Negative SARS-CoV-2 (Negative)
[2023-08-29] MEDS: SODIUM CHLORIDE 0.9 % (FLUSH) 10 ML SYRINGE 5 ML IVF (17:29)
--- NOTE | 2023-08-29 19:44 | PC.NURSE ---
(shift 15-19) Pt alert and oriented. Pt had no complaints of pain. Pt independent in room. Son visited mid evening.
[2023-08-29 20:09] LABS: Chloride* 107 mmol/L (96-114); Potassium* 3.2 mmol/L (3.6-5.1); Sodium* 134 mmol/L (135-149)
[2023-08-29 20:12] LABS: Anion Gap 7 mEq/L (7-15); Blood Urea Nitrogen* 8 mg/dL (7-30); Calcium* 6.2 mg/dL (8.4-10.6); Carbon Dioxide* 20 mmol/L (20-32); Creatinine* 0.6 mg/dL (0.5-1.5); Estimated Glomerular Filt Rate 113 ml/min; Glucose* 78 mg/dL (60-115)
[2023-08-30] VITALS (12 sets, daily range): BP systolic 105–125; BP diastolic 72–89; PULSE 80–90; RESP 16–20; TEMP 36.1–36.3; O2SAT 96–98
[2023-08-30] MEDS: PIPERACILLIN/TAZOBACTAM 3.375 GM in 0.9 % SODIUM CHLORIDE Mini-bag 100 ML IVPB ×2 (02:20→08:15)
[2023-08-30] MEDS: 0.9 % SODIUM CHLORIDE 1000 ml 1,000 ML 125 ML IV (03:03)
--- NOTE | 2023-08-30 05:27 | PC.NURSE ---
Shift note: Pt has been in bed throughout the shift. Alert with occasional confusion and disorientation. Cooperative with care and treatment. At 0230, when found out the all the 2 IV lines are not working when attempt was make to administer the IV abx. New Iv inserted at the right lateral wrist. Vitally stable.
[2023-08-30 06:27] LABS: Ionized Calcium* 0.99 mmol/L (1.11-1.30); Lactate* 1.2 mmol/L (0.5-1.9)
[2023-08-30] MEDS: OMEPRAZOLE 20 MG CAPSULE DR 40 MG PO (06:29)
[2023-08-30 06:34] LABS: Basophils Absolute Auto 0.02 K/uL (0.00-0.30); Basophils Percent Auto 0.3 % (0.0-3.0); Eosinophils Absolute Auto 0.45 K/uL (0.00-0.50); Hematocrit 33.8 % (37.0-53.0); Hemoglobin* 11.4 gm/dL (13.5-17.5); Immature Granulocytes Abs Auto 0.06 K/uL (0.00-0.30); Immature Granulocytes Pct Auto 0.9 %; Lymphocytes Percent Auto 18.7 % (20-44); Mean Corpuscular HGB Conc 34 gm/dL (32-36); Mean Corpuscular Hemoglobin 34 pg (26-34); Mean Corpuscular Volume 99 fL (80-100); Monocytes Percent Auto 6.7 % (0.0-11.0); Neutrophils Absolute Auto 4.25 K/uL (1.7-7.0); Neutrophils Percent Auto 66.4 % (42.0-72.0); Platelet Count* 278 K/uL (140-440); RDW Coefficient of Variation % 13.2 % (11.5-15.5); White Blood Count* 6.41 K/uL (4.50-11.00)
[2023-08-30 07:03] LABS: Albumin* 2.6 g/dL (3.3-5.0); Chloride* 107 mmol/L (96-114)
[2023-08-30 07:04] LABS: Potassium* 3.5 mmol/L (3.6-5.1); Sodium* 136 mmol/L (135-149)
[2023-08-30 07:06] LABS: Alkaline Phosphatase* 256 U/L (40-150); Anion Gap 3 mEq/L (7-15); Aspartate Amino Transferase* 40 U/L (12-35); Bilirubin Total* 0.7 mg/dL (0.1-1.5); Blood Urea Nitrogen* 6 mg/dL (7-30); Carbon Dioxide* 26 mmol/L (20-32); Creatinine* 0.7 mg/dL (0.5-1.5); Est. Creatinine Clearance* 108.86; Estimated Glomerular Filt Rate 107 ml/min; Glucose* 76 mg/dL (60-115); Total Protein* 5.8 g/dL (6.0-8.3)
[2023-08-30 07:07] LABS: Alanine Aminotransferase* 23 U/L (4-50); Calcium* 7.1 mg/dL (8.4-10.6); Magnesium* 1.3 mg/dL (1.5-2.6)
[2023-08-30 07:10] LABS: Slide Review Reflex No
[2023-08-30 07:16] LABS: Mono Screen* Negative (Negative)
[2023-08-30 07:22] LABS: Procalcitonin* 2.79 ng/mL (<0.50)
[2023-08-30] MEDS: CETIRIZINE HCL 10 MG TABLET PO ×2 (08:16→20:37)
[2023-08-30] MEDS: MAGNESIUM IV 2 GM/50 ML PIGGYBACK IVPB (09:46)
[2023-08-30] MEDS: LACTULOSE 20 GM/30 ML PO ×2 (09:46→20:41)
--- NOTE | 2023-08-30 11:52 | PC.SOCIAL ---
Discharge planning: protective services social worker met with pt today and provided the pt with outpatient substance abuse treatment options for Anant and Brian. Pt lives in [place] with his son. Pt was thankful for the information. Social work to follow-up as needed.
[2023-08-30] MEDS: POTASSIUM BICARB 25 MEQ EFFERVESCENT TAB 50 MEQ PO (12:11)
[2023-08-30] MEDS: THIAMINE 250 MG in 0.9 % SODIUM CHLORIDE 100 ml 100 ML 102.5 MG IVPB ×2 (12:12→20:41)
--- NOTE | 2023-08-30 12:31 | P.IMPN_ITS ---
Progress Note: A&P Assessment and plan (1) Febrile illness: Problem details: Fever prior to and early in this admission. Now resolved over the last 36 hours. Source of the fever is uncertain. Possibly related to an acute alcoholic hepatitis. Continue to surveil for source of fever. He has been on broad-spectrum antibiotics with Zosyn and vancomycin. Will discontinue those as there is no ongoing indication. Status: Acute (2) Alcohol use disorder: Problem details: Longstanding problem with sequelae noted below. Status: Acute (3) Hepatitis, alcoholic, acute: Problem details: Possible cause of fever and acute illness Status: Acute (4) Acute hypokalemia: Problem details: - replace and follow - also receiving Magnesium and Calcium Status: Acute (5) Hyponatremia: Problem details: Continue to monitor sodiums and oral intake Status: Acute (6) Hypomagnesemia: Problem details: Replace and monitor Status: Acute (7) Elevated LFTs: Problem details: - likely 2/2 ETOH use disorder - reassuring MRCP Status: Acute (8) Weight loss: Problem details: - poor intake/appetite. unclear if febrile illness is new or ongoing. Suspect secondary to alcohol abuse and hepatitis Status: Acute (9) Wernicke encephalopathy: Problem details: Prior to admission patient reported diplopia, gait instability, mental confusio n. Initiate IV thiamin. Status: Acute (10) Rash: Problem details: - noted prior to antibiotic administration, appears consistent with viral process; will add COVID/FLU/RSV/mono to labs Status: Acute (11) Discharge planning issues: Problem details: Anticipate discharge with supportive family and outpatient alcohol treatment Status: Acute (12) Unstable gait: Problem details: Suspected to be due to complications of alcohol use including Wernicke-Korsakoff and peripheral neuropathy. Also losing lean muscle mass, poor nutrition and deconditioning Status: Acute (13) Peripheral neuropathy: Problem details: Suspect this is present due to alcohol abuse Status: Acute Plan Continue in hospital for another day of management of multiple medical problems noted above. Plan of care discussed with the patient. Anticipate discharge to care were of supportive family and outpatient alcohol dependency treatment Time Spent With Patient Total time spent: Total time spent today is 65 minutes, 45 minutes in coordination of care and discussion with patient and other providers ongoing evaluation management of multiple problems noted above Subjective Date Seen: 08/30/23 Interval history: 58-year-old male with alcohol use disorder admitted to the hospital 2 days ago with weakness and fever. Patient was living in [place] when neighbors became concerned about his poor health. Details are uncertain. He had some medical evaluation there that was inconclusive from the patient's point of view. His son went down to [place] and picked him up and brought him back to [place] to our hospital. At the time of admission the source of his fever was not determined. Was treated with vancomycin and Zosyn. Blood and urine cultures are currently negative. Chest and abdomen imaging shows no obvious source of infection and he is not currently having a fever or any other symptoms of illness. He did develop a morbilliform rash over his trunk. It does not cause itching. It does not bother him. He was also evaluated and treated for complications of alcohol use disorder. He reports that he has been drinking heavily and not eating for weeks. He last drank about 2 weeks ago. He has not had any evidence of withdrawal. Did report that when he was returning from [place] with his son that he was having trouble walking and he is having diplopia and he was confused. He reports all that is better now. He acknowledges that he is still quite weak but otherwise reports no other significant symptoms of illness. He has been able to eat. Not having any significant pain at this time. Exam Narrative: Exam Narrative: He is alert and appears in no distress. He gives his own history with fairly good detail. He is oriented to his circumstances. Pleasant and cooperative. Eyes are normal. Extraocular movements are full. No dysconjugate gaze or diplopia noted. Oropharynx is normal. Tongue is midline. No facial asymmetry. Neck is supple without mass or adenopathy. Respirations are clear to auscultation. Cardiovascular: S1, S2, regular rate and rhythm. Abdomen: Bowel sounds are present. Abdomen is soft but somewhat protuberant. It is nontender. Extremities without edema. Skin is noted for a morbilliform rash over his trunk primarily and to a lesser extent proximal extremities. No blistering. Const: Vital Signs, click to edit/add: Vital Signs - 24 hr 08/29/23 15:35 08/29/23 16:12 08/29/23 19:00 Temperature 97.4 F L 97.5 F L Pulse Rate 88 Pulse Rate [Pulse Oximeter] 92 86 Respiratory Rate 16 16 Blood Pressure [Le ft Arm] 104/76 115/79 Pulse Oximetry 99 96 Oxygen Delivery Me thod Room Air Room Air 08/29/23 22:37 08/29/23 22:45 08/29/23 22:45 Temperature 97.7 F Pulse Rate 85 Pulse Rate [Pulse Oximeter] 84 84 Respiratory Rate 16 16 Blood Pressure [Le ft Arm] 109/85 Pulse Oximetry 97 Oxygen Delivery Me thod Room Air 08/30/23 00:00 08/30/23 02:58 08/30/23 07:45 Temperature 97.1 F L Pulse Rate 80 Pulse Rate [Pulse Oximeter] 84 Respiratory Rate 16 Blood Pressure [Le ft Arm] 123/80 Pulse Oximetry 96 96 Oxygen Delivery Me thod Room Air 08/30/23 08:40 Temperature 97.1 F L Pulse Rate Pulse Rate [Pulse Oximeter] 81 Respiratory Rate 16 Blood Pressure [Le ft Arm] 122/89 Pulse Oximetry 97 Oxygen Delivery Me thod Room Air Documenting provider has reviewed patient's vital signs: yes Labs Labs: Laboratory Results - last 24 hr 08/29/23 08/29/23 08/29/23 12:10 14:47 19:30 WBC RBC Hgb Hct MCV MCH MCHC RDW Coeff of Lesley Plt Count Neut % (Auto) Lymph % (Auto) Ritchie % (Auto) Eos % (Auto) Baso % (Auto) Neut # (Auto) Lymph # (Auto) Ritchie # (Auto) Eos # (Auto) Baso # (Auto) Abs Immat Gran (auto) Imm/Tot Granulo (auto) Sodium 134 L 134 L Potassium 2.9 L* 3.2 L Chloride 103 107 Carbon Dioxide 25 20 Anion Gap 6 L 7 BUN 10 8 Creatinine 0.8 0.6 Estimated Creat Clear 95.25 127.00 Estimated GFR 103 113 Glucose 94 78 Lactate Calcium 6.6 L 6.2 L Ionized Calcium Robert Magnesium 1.6 Total Bilirubin AST ALT Alkaline Phosphatase Total Protein Albumin Procalcitonin SARS-CoV-2 (PCR) Negative SARS-CoV-2 Monoscreen Influenza Type A (PCR) Negative PCR FLU A Influenza Type B (PCR) Negative PCR FLU B RSV (PCR) Negative PCR RSV 08/30/23 06:19 WBC 6.41 RBC 3.40 L Hgb 11.4 L Hct 33.8 L MCV 99 MCH 34 MCHC 34 RDW Coeff of Lesley 13.2 Plt Count 278 Neut % (Auto) 66.4 Lymph % (Auto) 18.7 L Ritchie % (Auto) 6.7 Eos % (Auto) 7.0 Baso % (Auto) 0.3 Neut # (Auto) 4.25 Lymph # (Auto) 1.20 Ritchie # (Auto) 0.40 Eos # (Auto) 0.45 Baso # (Auto) 0.02 Abs Immat Gran (auto) 0.06 Imm/Tot Granulo (auto) 0.9 Sodium 136 Potassium 3.5 L Chloride 107 Carbon Dioxide 26 Anion Gap 3 L BUN 6 L Creatinine 0.7 Estimated Creat Clear 108.86 Estimated GFR 107 Glucose 76 Lactate 1.2 Calcium 7.1 L Ionized Calcium Robert 0.99 L Magnesium 1.3 L Total Bilirubin 0.7 AST 40 H ALT 23 Alkaline Phosphatase 256 H Total Protein 5.8 L Albumin 2.6 L Procalcitonin 2.79 H SARS-CoV-2 (PCR) Monoscreen Negative Influenza Type A (PCR) Influenza Type B (PCR) RSV (PCR)
--- NOTE | 2023-08-30 19:55 | PC.NURSE ---
End of shift [id number] ? Pt alert, oriented, cooperative. Pt engaged in conversation with RN but appeared fatigued. Up in halls with PT using walker/gait belt. Pt reports feeling ?better? than the previous day and noted an increase in appetite. Pt reported feeling winded from exertion, but still reports feeling improved. Pt continent of bowel and bladder during shift, tolerating RA, regular diet/fluids. Observed to sleep during shift. Appears to be resting comfortably at end of shift.
[2023-08-30] MEDS: MAGNESIUM OXIDE 400 MG TABLET PO (20:40)
[2023-08-30] MEDS: SODIUM CHLORIDE 0.9 % (FLUSH) 10 ML SYRINGE 5 ML IVF (20:41)
[2023-08-30] MEDS: MELATONIN 3 MG TABLET PO (23:05)
[2023-08-31 03:07] VITALS: BP 99/64; PULSE 87; RESP 18; TEMP 36.8; O2SAT 96
[2023-08-31] MEDS: OMEPRAZOLE 20 MG CAPSULE DR 40 MG PO (06:24)
--- NOTE | 2023-08-31 06:37 | PC.NURSE ---
End of shift note [id number]: Pt alert & oriented x 4 and able to make needs known. VSS and pt has been afebrile. He transfers/ambulates with SBA using walker. IV to R wrist patent and SL. PRN Melatonin administered at HS per pt request. He is noted to be continent of bowel and bladder. Pt on tele with NSR noted. Pt has been denying pain when asked throughout the shift. ?
[2023-08-31 07:00] VITALS: BP 122/88; PULSE 87; RESP 18; RESP 20; TEMP 36.4; O2SAT 98
[2023-08-31 07:28] LABS: Chloride* 107 mmol/L (96-114); Potassium* 3.5 mmol/L (3.6-5.1); Sodium* 137 mmol/L (135-149)
[2023-08-31 07:30] LABS: Creatinine* 0.6 mg/dL (0.5-1.5); Estimated Glomerular Filt Rate 113 ml/min
[2023-08-31 07:31] LABS: Anion Gap 4 mEq/L (7-15); Blood Urea Nitrogen* 5 mg/dL (7-30); Calcium* 7.2 mg/dL (8.4-10.6); Carbon Dioxide* 26 mmol/L (20-32); Glucose* 81 mg/dL (60-115)
[2023-08-31 07:32] LABS: Magnesium* 1.5 mg/dL (1.5-2.6)
[2023-08-31] MEDS: MAGNESIUM OXIDE 400 MG TABLET PO (08:22)
[2023-08-31] MEDS: CETIRIZINE HCL 10 MG TABLET PO (08:22)
[2023-08-31] MEDS: LACTULOSE 20 GM/30 ML PO (08:22)
[2023-08-31] MEDS: POTASSIUM BICARB 25 MEQ EFFERVESCENT TAB 50 MEQ PO (08:23)
[2023-08-31] MEDS: SODIUM CHLORIDE 0.9 % (FLUSH) 10 ML SYRINGE 5 ML IVF (08:25)
[2023-08-31] MEDS: THIAMINE 100 MG TABLET PO (10:14)
--- NOTE | 2023-08-31 11:36 | PC.SOCIAL ---
Discharge planning: sill worker spoke to pt today to see if it was okay with him to speak to his son, Balbir, about outpatient substance abuse treatment options/resources for the pt, as his son was also asking about this information for his dad, as well. Pt stated it was okay with him. sill worker spoke to pt's son, Balbir, and he stated that his dad will be staying with his sister(Balbir's aunt) in [place] after he discharges from the hospital and not his house. sill worker emailed Balbir the substance abuse treatment resource list which includes some resources for the [place] area. Balbir was thankful for the information. Social work to follow-up as needed.
--- NOTE | 2023-08-31 11:37 | PC.NURSE ---
Discharge: Patient VSS. Alert and oriented. SBA with ambulation, walker, and gait belt. IV removed. Patient discharged at 1115 with son via wheelchair. RN provided patient education. Discharge paperwork signed by patient.
--- NOTE | 2023-08-31 13:34 | P.DS_ITS ---
DS: Providers Provider Date Seen: 08/31/23 Date of admission: 08/28/23 16:49 Primary care physician: Not a Local Provider Admitting Clinician: Kamla Mccann MD Attending Physician on discharge: Edgar Ledesma MD Date of Discharge: 08/31/23 DS: Diagnosis Discharge Diagnosis (1) Alcohol use disorder: Status: Acute Problem details: Longstanding problem with sequelae noted below. (2) Wernicke encephalopathy: Status: Acute Problem details: Prior to admission patient reported diplopia, gait instability, mental confusion. Initiate IV thiamin. Oral thiamin at discharge (3) Hepatitis, alcoholic, acute: Status: Acute Problem details: Possible cause of fever and acute illness. Clinically improved (4) Febrile illness: Status: Acute Problem details: Fever prior to and early in this admission. Now resolved over the last 36 hours. Source of the fever is uncertain. Possibly related to an acute alcoholic hepatitis. Continue to surveil for source of fever. He has been on broad-spectrum antibiotics with Zosyn and vancomycin. Will discontinue those as there is no ongoing indication. No fever for 2 and half days prior to discharge (5) Rash: Status: Acute Problem details: Morbilliform rash started before antibiotics and is much better today. Cause uncertain (6) Hypomagnesemia: Status: Acute Problem details: Replace and monitor (7) Unstable gait: Status: Acute Problem details: Suspected to be due to complications of alcohol use including Wernicke-Korsakoff and peripheral neuropathy. Also losing lean muscle mass, poor nutrition and deconditioning (8) Peripheral neuropathy: Status: Acute Problem details: Suspect this is present due to alcohol abuse (9) Hyponatremia: Status: Acute Problem details: Continue to monitor sodiums and oral intake (10) Acute hypokalemia: Status: Acute Problem details: - replace and follow - also receiving Magnesium and Calcium (11) Weight loss: Status: Acute Problem details: - poor intake/appetite. unclear if febrile illness is new or ongoing. Suspect secondary to alcohol abuse and hepatitis (12) Discharge planning issues: Status: Acute Problem details: Anticipate discharge with supportive family and outpatient alcohol treatment DS: Summary Status at Discharge Cognitive/behavioral status at discharge: 58-year-old male with longstanding alcohol use disorder is brought to [facility] from [place] by his son after concerned neighbors in [place] contacted him. On admission he was found to have multiple problems as noted in the problem list above. These were thought to be almost entirely related to acute on chronic alcohol use. He also had a fever and the cause of that was never determined. Is possibly related to acute alcoholic hepatitis but no other obvious sign of infection seen on chest abdomen pelvis imaging and clinical examination and blood in urine cultures. During his hospital stay he had evaluation and treatment of multiple problems including electrolyte abnormalities, weakness, Wernicke encephalopathy. His mental status improved. His strength gait and balance all improved but he still requiring a walker to ambulate. His Garrard score was 25/30. At the time of discharge he has felt that he will need supervision and assistance at home. He is able to walk with a walker but unable to do some tasks such as picking something up off the floor. He would benefit from ongoing outpatient treatment for alcohol use disorder and ongoing therapy for his weakness, ataxia and disabilities. He will follow up next week at [facility] and contact me at that time to review his labs for his electrode a bnormalities as well as follow-up on his other problems. Time Spent with Patient Time attestation: Total time spent providing and/or coordinating discharge services: 55 minutes Time spent: Greater than 30 minutes Exam Narrative: Exam Narrative: He is alert and appears in no distress. Pleasant cooperative. The morbilliform rash in his trunk is faded substantially. Respirations are clear to auscultation. Cardiovascular: S1, S2, regular rate and rhythm. Abdomen is soft without tenderness or mass. He has intact sensation in his feet. In intact pulses. Trace edema. Const: Vital Signs, click to edit/add: Vital Signs - 24 hr 08/30/23 16:04 08/30/23 16:35 08/30/23 20:14 Temperature 97.0 F L 97.2 F L Pulse Rate 84 Pulse Rate [Pulse Oximeter] 81 88 Respiratory Rate 20 20 Blood Pressure [Le ft Arm] 125/83 113/83 Pulse Oximetry 98 98 Oxygen Delivery Me thod Room Air Room Air 08/30/23 23:00 08/30/23 23:03 08/30/23 23:12 Temperature 97.3 F L Pulse Rate 88 Pulse Rate [Pulse Oximeter] 88 88 Respiratory Rate 18 18 Blood Pressure [Le ft Arm] 105/72 Pulse Oximetry 98 Oxygen Delivery Me thod Room Air 08/30/23 23:58 08/31/23 03:07 08/31/23 07:00 Temperature 98.3 F Pulse Rate Pulse Rate [Pulse Oximeter] 87 87 Respiratory Rate 18 18 Blood Pressure [Le ft Arm] 99/64 Pulse Oximetry 98 96 Oxygen Delivery Me thod Room Air 08/31/23 07:00 Temperature 97.6 F Pulse Rate Pulse Rate [Pulse Oximeter] 87 Respiratory Rate 20 Blood Pressure [Le ft Arm] 122/88 Pulse Oximetry 98 Oxygen Delivery Me thod Room Air Documenting provider has reviewed patient's vital signs: yes DS: Data Data Completed and Pending Labs on day of discharge: Labs from last 24 hours 08/31/23 07:03 Sodium 137 Potassium 3.5 L Chloride 107 Carbon Dioxide 26 Anion Gap 4 L BUN 5 L Creatinine 0.6 Estimated Creat Clear 127.00 Estimated GFR 113 Glucose 81 Calcium 7.2 L Magnesium 1.5 Preliminary micro results at discharge 08/28/23 00:04 Blood Culture - Preliminary Blood NO GROWTH AFTER 72 HOURS 08/28/23 00:04 Blood Culture - Preliminary Blood NO GROWTH AFTER 72 HOURS Discharge Plan Discharge Disposition: Home w/ Parent or Adult Date of Admission: 08/28/23 16:49 Attending Provider on Discharge: Prakash Ledesma Primary Care Provider: Provider,Not a Local Anticipated Discharge Date/Time: 08/31/23 10:14 Discharge Medications: New multivitamin Tablet 1 tab PO DAILY Qty: 100 0RF thiamine HCl (vitamin B1) 100 mg tablet 100 mg PO DAILY Qty: 100 0RF lactulose 10 gram/15 mL solution 20 g PO DAILY Qty: 946 2RF Continued ondansetron HCl 8 mg tablet 8 mg PO TID PRN Discontinued metoprolol succinate 100 mg tablet extended release 24 hr 100 mg PO DAILY Discharge Orders: Discharge Order (Routine); Ordered 08/31/23 Ordered By: Prakash Ledesma Patient Education: Thiamine (By mouth), Multivitamins, Adult Formula (By mouth), Lactulose (By mouth), Hyponatremia (DC), Hypokalemia (DC), H ypomagnesemia (DC), Alcohol Use Disorder (DC), Alcoholic Hepatitis (DC), Encephalopathy (DC) Additional Instructions: Avoid all consumption of alcohol. Maintaining abstinence from alcohol is a difficult and long-term project. We recommend you get assistance with this from outpatient treatment programs. Follow-up at [facility] at noon on Sunday for blood tests. Ask the lab staff to contact me, Dr. Ledesma, when you arrive. Activity Level: Activity as Tolerated and Use Walker Discharge Diet: Regular Follow Up Appointments: Provider,Not a Local [Primary Care Provider] - (See a primary care doctor next week to recheck your medical problems and your blood tests, basic metabolic panel and magnesium) Forms: [facility] Info Instructions
--- NOTE | 2023-09-24 10:05 | PC.NURSE ---
pt called about what labs the MD Ledesma was recommending at his PCP appointment.
== END 2023-08-31 11:15 | disposition home or self-care (01) | DRG 280 ==
LOC: ED 16:22 → MEDSURG 22:40
PROVIDERS: Family Medicine; Internal Medicine; Admitting Provider Family Medicine; Emergency Provider Emergency Medicine; Visit Provider Family Medicine
DX: K70.10 Alcoholic hepatitis without ascites (principal); F10.10 Alcohol abuse, uncomplicated; Y90.0 Blood alcohol level of less than 20 mg/100 ml; E51.2 Wernicke's encephalopathy; R50.9 Fever, unspecified; R21 Rash and other nonspecific skin eruption; E61.2 Magnesium deficiency; R26.81 Unsteadiness on feet; G65.2 Sequelae of toxic polyneuropathy; E87.1 Hypo-osmolality and hyponatremia; E86.0 Dehydration; E87.6 Hypokalemia; R63.4 Abnormal weight loss; Z68.28 Body mass index [BMI] 28.0-28.9, adult; Z86.79 Personal history of other diseases of the circulatory system; Z96.643 Presence of artificial hip joint, bilateral; R79.89 Other specified abnormal findings of blood chemistry
CPT/HCPCS: 36415; 70450; 70551; 71275; 74177; 74181; 76705; 80048; 80053; 80069; 80076; 80306; 81001; 82077; 82140; 82150; 82248; 82330; 82803; 82977; 83605; 83690; 83735; 84132; 84145; 84295; 84443; 84484; 85025; 85027; 85610; 85730; 86140; 86308; 87040; 87086; 87631; 93005; 94761; 97110; 97112; 97116; 97161; 97165; 97530; 97535; 99285; A9270; C9113; G0378; J0613; J2543; J2765; J3370; J3411; J3475; J3480; J7030; J7120; Q9967

== ENCOUNTER 2023-09-05 11:37 | Outpatient (CLI) | payer BC, SELFPAY ==
[2023-09-05 12:11] LABS: Chloride* 106 mmol/L (96-114); Potassium* 3.8 mmol/L (3.6-5.1); Sodium* 141 mmol/L (135-149)
[2023-09-05 12:14] LABS: Anion Gap 5 mEq/L (7-15); Blood Urea Nitrogen* 8 mg/dL (7-30); Carbon Dioxide* 30 mmol/L (20-32); Creatinine* 0.6 mg/dL (0.5-1.5); Estimated Glomerular Filt Rate 113 ml/min; Glucose* 83 mg/dL (60-115)
[2023-09-05 12:15] LABS: Calcium* 8.1 mg/dL (8.4-10.6); Magnesium* 1.8 mg/dL (1.5-2.6)
--- NOTE | 2023-09-06 07:37 | PM.EN ---
Chart Event Note Time Seen by Provider: 12:00 Date Seen: 09/05/23 Chart Event Note: Patient came in for labs to follow-up multiple electrolyte abnormalities. He is now living with his sister in [place]. He reports this is going well. He feels like he is getting stronger. Labs today show sodium 141, potassium of 3.8, creatinine is 0.6, magnesium of 1.8. I recommend he get clinic follow-up near where he is living in [place] in the next 1-2 weeks to establish care and to recheck his basic metabolic panel, and to address his chronic medical problems including alcohol use disorder and is physical disabilities with therapy.
== END 2023-09-05 11:38 | disposition home or self-care (01) ==
LOC: LAB 11:38
PROVIDERS: Visit Provider Family Medicine
DX: F10.20 Alcohol dependence, uncomplicated (principal); K70.10 Alcoholic hepatitis without ascites; E51.2 Wernicke's encephalopathy
CPT/HCPCS: 36415; 80048; 83735

== ENCOUNTER 2023-09-27 14:05 | Outpatient (CLI) | payer BC, SELFPAY ==
--- OUTSIDE RECORDS SUMMARY | 2023-09-27 14:11 | XMS_ITS | Encounter Summary ---
Author Organization [email or web address] Address [address] [place] [address] Care Team Providers Care Pack Operator Name Role Phone No Primary/Referring, Phy Primary Care Provider Unavailable Encounter Details Date Type Department Care Team (Late st Contact Info) Description 04/29/2012 Home Care Visit [facility] [address] [place] [address], [address] [place] [address] Rodger Frazier, RN [address] [place] [address] Social History Tobacco Use Types Packs/Day Years Used Date Smoking Tobacco: Never Assessed Sex and Gender Information Value Date Recorded Sex Assigned at Not on file Gender Identity Not on file Sexual Orientation Not on file documented as of this encounter Progress Notes * Rodger Frazier, RN - 04/29/2012 2:24 PM CST Situation: Discharged patient from homecare services. Background: He had left total hip arthroplasty Assessment: Patient is stable. Incision is healing. It is clean, dry and intact. Jackson removed today with no noted problems. No edema or bruising at surgical site. He has little pain at this time and is using tylenol. His inr was 1.4 today and it is his last one. He is to go on aspirin. He is going back to work on sunday and requested he be done sunday or sunday with homecare. He has met all his goals at this time and no further nursing needs noted. He has been using cane for ambulation and he is safe at home. T-98.2, R-16, P-88, B/P 128/74. Recommendations: Patient will follow up with physician with any further needs. No further homecare needed. Payor is [facility]. [employer] documented in this encounter Plan of Treatment Not on file documented as of this encounter Visit Diagnoses Not on filedocumented in this encounter Additional Health Concerns Infection Onset Date Last Indicated Resolved Time R/O COVID19 12/07/2021 12/07/2021 12/07/2021 9:52 AM CDT COVID19 12/07/2021 12/07/2021 12/18/2021 3:17 AM CDT documented as of this encounter Care Teams Pack Operator Relationship Specialty Start Date End Date No Primary/Referring, Phy PCP - General 12/06/21 documented as of this encounter
--- OUTSIDE RECORDS SUMMARY | 2023-09-27 14:11 | XMS_ITS | Clinical Summary ---
Author Organization [facility] Address [address] [address] Care Team Providers Care Burial Vault Deliverer And Installer Name Role Phone No Primary/Referring, Carlos Primary Care Provider Unavailable Source Comments You are receiving this document as you are listed as the primary care provider,follow-up provider, or the patient has been referred to you for consultation.This is in compliance with the Medicare and[facility] EHR Incentive Program,which states Providers who transition their patient to another setting of careor provider of care or refers their patient to another provider of care shouldprovide summary care record for each transition of care or referral. [facility] Allergies No known active allergies Medications Medication Sig Dispensed Refills Start Date End Date Status metoprolol succinate (TOPROL XL) 100 MG 24 hour release tablet Take 1 Tablet (100 mg) by mouth every evening. 90 Tablet 3 12/08/2021 Active Active Problems No known active problems Immunizations Name Administration Dates Next Due Pfizer Monovalent 12+ Purple Top 07/29/2020,04/0 04/2020 Social History Tobacco Use Types Packs/Day Years Used Date Smoking Tobacco: Never Smokeless Tobacco: Never Tobacco Cessation:Counseling Given: Not Answered Alcohol Use Standard Drinks/Week Comments Not Asked 0 (1 standard drink = 0.6 oz pur e alcohol) Sex and Gender Information Value Date Recorded Sex Assigned at Not on file Gender Identity Not on file Sexual Orientation Not on file Last Filed Vital Signs Vital Sign Reading Time Taken Comments Blood Pressure 129/82 01/18/2022 10:30 AM CDT Pulse 62 01/18/2022 10:30 AM CDT Temperature 36.9 ??C (98.4 ??F) 12/08/2021 8:28 AM CD T Respiratory Rate 17 12/08/2021 8:28 AM CDT Oxygen Saturation 97% 12/08/2021 8:28 AM CDT Inhaled Oxygen Concentration - - Weight 85.9 kg (189 lb 6.4 oz) 01/18/2022 10:30 AM CDT Height 170.2 cm (5' 7) 12/07/2021 6:53 PM CDT Body Mass Index 29.66 12/07/2021 6:53 PM CDT Plan of Treatment Health Maintenance Due Date Last Done Comments Colon Cancer Screening Plan Due 1966 Hep C Screening (Preventive Services) 1966 PSA Screening Discussion 1966 HIV Screening (Preventive Services) 1982 Adult Preventive Visit 02/24/1984 HepB (1) 1985 Cholesterol 2001 Zoster/Shingles (1 of 2) 02/24/2016 COVID-19 Vaccine (3 - 2022-2 4 season) 2022 07/29/2020, 07/08/2020 DTaP/Tdap/Td (2 - Tdap) 07/10/2023 07/09/2013 Influenza (Season Ended) 2023 HepA Aged Out No longer eligi ble based on patient's age to complete this topic Hib Aged Out No longer eligi ble based on patient's age to complete this topic IPV (Polio) Aged Out No longer eligi ble based on patient's age to complete this topic MCV4 Aged Out No longer eligi ble based on patient's age to complete this topic Pneumococcal Aged Out No longer eligi ble based on patient's age to complete this topic Advance Directives * Full Code (Latest Code Status on File) Date Activated Date Inactivated Comments 12/07/2021 2:25 AM 12/08/2021 6:29 PM Care Teams Burial Vault Deliverer And Installer Relationship Specialty Start Date End Date No Primary/Referring, Carlos PCP - General 12/06/21
--- OUTSIDE RECORDS SUMMARY | 2023-09-27 14:11 | XMS_ITS | Encounter Summary ---
Author Organization [facility] Address [address] [place] [address] Care Team Providers Care Permit Review Assistant Name Role Phone No Primary/Referring, Phy Primary Care Provider Unavailable Encounter Details Date Type Department Care Team (Late st Contact Info) Description 04/20/2012 Home Care Visit [facility] [address] [place] [address], [address] [place] [address] Rodger Frazier, RN [address] [place] [address] Social History Tobacco Use Types Packs/Day Years Used Date Smoking Tobacco: Never Assessed Sex and Gender Information Value Date Recorded Sex Assigned at Not on file Gender Identity Not on file Sexual Orientation Not on file documented as of this encounter Progress Notes * Rodger Frazier, RN - 04/20/2012 10:04 PM CST Situation: Admitted 47 yr old male to homecare services Background: Patient had Left Total Hip Arthroplasty. Other health history: Rt total Hip Arthroplasty this past fall 2011. Assessment: Patient home with . He is using walker to ambulate around and is getting up every 1-2 hours for exercise and stretching. He has little pain at this time and is seeming to keep the pain at 2-3. He did have the worst pain this am after sleeping for a period of time and it was 4-5. Patient is taking tramadol and oxycodone for pain and it is effective. Incision is c,d,i. He has 23 lissy present and dressing on it. He did have some bleeding on lower part of dressing that I pulled off. When he left the hospital thursday the bottom of incision was still bleeding some and so a pressure dressing was placed on the lower part of incision but has since stopped and it is dry at this time. Some swelling and minimal bruising. He is icing the area every couple of hours. He is elevating his leg with recliner to help with swelling, He has an appetite and is drinking fluids. He is having help with his meds and will have an inr sunday. He is on coumadin and did do teaching with him on that. Did go over with him infection prevention due to incision and what to look for. Encouraged to call if they had any concerns that would come up over the weekend. He is safe in home. PT will see this weekend. VS: b/p 116/70, r-16, p-90, t-98.6. [facility]:3. Recommendations: SNV for SOC, then SNV 2x week for 3 weeks. PT for eval and treat. Payor is [facility]. DATION INTERN documented in this encounter Plan of Treatment Not on file documented as of this encounter Visit Diagnoses Not on filedocumented in this encounter Additional Health Concerns Infection Onset Date Last Indicated Resolved Time R/O COVID19 12/07/2021 12/07/2021 12/07/2021 9:52 AM CDT COVID19 12/07/2021 12/07/2021 12/18/2021 3:17 AM CDT documented as of this encounter Care Teams Permit Review Assistant Relationship Specialty Start Date End Date No Primary/Referring, Phy PCP - General 12/06/21 documented as of this encounter
== END 2023-09-27 14:06 | disposition home or self-care (01) ==
PROVIDERS: Visit Provider Family Medicine
DX: D64.9 Anemia, unspecified (principal); R63.4 Abnormal weight loss; E87.1 Hypo-osmolality and hyponatremia; E87.6 Hypokalemia; R79.89 Other specified abnormal findings of blood chemistry; F10.90 Alcohol use, unspecified, uncomplicated; G62.9 Polyneuropathy, unspecified
CPT/HCPCS: 80053; 83735; 84443

== ENCOUNTER 2024-11-13 23:12 | Emergency (ER) | payer BC, SELFPAY ==
--- NOTE | 2024-11-13 23:14 | ED.ABDPAIN ---
HPI - Abdominal Pain General Time Seen by Provider: 23:14 Date Seen: 11/13/24 Chief Complaint: Abdominal Pain Stated Complaint: bloated stomach Time Seen by Provider: 11/13/24 23:14 Source: patient, RN notes reviewed and old records reviewed Mode of arrival: ambulatory Limitations: no limitations History of Present Illness HPI narrative: 51-year-old male with history of alcoholic hepatitis, chronic alcohol use, presents today with abdominal bloating. Patient reports that he has had fluid in his abdomen for the head to be drained and says this feels similar. History of alcohol dependence alcoholic hepatitis with ascites, still drinking alcohol. Does report vomiting today, no abdominal pain, still having bowel movements, no urinary symptoms. Patient does not his medications with thinks he takes a diuretic as well as vitamins. Related Data Home Medications ?Medication ?Instructions ?Recorded ?Confirmed aspirin 81 mg chewable tablet 1 tab PO DAILY 11/13/24 11/13/24 cholecalciferol (vitamin D3) 125 125 mcg PO DAILY 11/13/24 11/13/24 mcg (5,000 unit) capsule fluticasone propionate 50 1 spray intranasal DAILY 11/13/24 11/13/24 mcg/actuation nasal spray,suspension folic acid 1 mg tablet 1 mg PO DAILY 11/13/24 11/13/24 furosemide 20 mg tablet 20 mg PO BID 11/13/24 11/13/24 gabapentin 300 mg capsule 300 mg PO TID 11/13/24 11/13/24 magnesium oxide 400 mg (241.3 mg 400 mg PO DAILY 11/13/24 11/13/24 magnesium) tablet mirtazapine 7.5 mg tablet 7.5 mg PO QPM 11/13/24 11/13/24 potassium chloride 20 mEq 20 meq PO DAILY 11/13/24 11/13/24 tablet,extended release(part/cryst) spironolactone 50 mg tablet 50 mg PO BID 11/13/24 11/13/24 Previous Rx's ?Medication ?Instructions ?Recorded lactulose 10 gram/15 mL oral 20 g (30 mL) PO DAILY #946 mL 08/31/23 solution multivitamin 1 tab PO DAILY #100 tabs 08/31/23 thiamine HCl (vitamin B1) 100 mg 100 mg PO DAILY #100 tabs 08/31/23 tablet Allergies Allergy/AdvReac Type Severity Reaction Status Date / Time No Known Drug Allergies Allergy Verified 11[facility]13/24 23:15 [facility] Medical History (Updated 11/14/24 @ 00:31 by Magno Menendez MD) Peripheral neuropathy ?G62.9 - Polyneuropathy, unspecified (ICD-10) Unstable gait ?R26.81 - Unsteadiness on feet (ICD-10) Hepatitis, alcoholic, acute ?K70.10 - Alcoholic hepatitis without ascites (ICD-10) Discharge planning issues ?Z75.8 - Other problems related to medical facilities and other health care (ICD-10) Wernicke encephalopathy ?E51.2 - Wernicke's encephalopathy (ICD-10) Hypomagnesemia ?E83.42 - Hypomagnesemia (ICD-10) Alcohol use disorder ?F10.90 - Alcohol use, unspecified, uncomplicated (ICD-10) Surgical History H/O lumbosacral spine surgery ?Z98.890 - Other specified postprocedural states (ICD-10) History of bilateral hip arthroplasty ?Z96.643 - Presence of artificial hip joint, bilateral (ICD-10) Status post ablation of atrial fibrillation ?Z98.890 - Other specified postprocedural states (ICD-10) ?Z86.79 - Personal history of other diseases of the circulatory system (ICD-10) Social History (Updated 09/27/23 @ 14:11 by Shelly Bashir~[facility], [facility]) What is your current living situation?: I presently have a place to live Problems where you live: no known problems Problems where you live details: didn't answer In the past 12 months, utilities in danger of being shut off: no In past 12 months, lack of transportation kept you from medical appts, meetings, work, or getting things needed for daily living: no In the past 12 mos, have been you worried that your food would run out before you had money to buy more?: never true In the past 12 mos, the food you bought just didn't last and you didn't have money to buy more?: never true Smoking Status: Never smoker Second hand tobacco smoke exposure: No How often do you have a drink containing alcohol: 4 or more times a week Alcohol type: hard liquor Alcohol type details: rum How many standard drinks containing alcohol do you have on a typical day: 5 or 6 How often do you have six or more drinks on one occasion: Never AUDIT-C Alcohol total score: 6 Non-prescribed substance use: denies use Caffeine: Yes (coffee) How often does anyone, including family, friends and others, physically hurt you: never How often does anyone, including family, friends and others, insult or talk down to you: never How often does anyone, including family, friends and others, threaten you with harm: never How often does anyone, including family, friends and others, scream or curse at you: never service: Yes Exam Narrative: Exam Narrative: General: Well-developed and well-nourished, no acute distress Head: Atraumatic and normocephalic Eyes: Pupils are equal reactive, extraocular motions intact, conjunctiva clear ENT: External nose and ears are normal, posterior pharynx without erythema or exudate Neck: No midline cervical tenderness, full spontaneous range of motion the neck, trachea midline, no adenopathy Heart: Regular rate and rhythm no murmurs or thrills Lungs: Clear to auscultation bilaterally without wheezes or crackles Abdomen: Soft, nontender, nondistended with high-pitched bowel sounds Musculoskeletal: No tenderness, deformity, or edema Neurologic: Awake, alert, and oriented x3, no gross focal neurologic deficits, cranial nerves intact as tested Psych: Mood and affect are appropriate Skin: No rashes Const: Vital Signs, click to edit/add: Vital Signs - 24 hr 11/13/24 23:19 11/13/24 23:33 11/13/24 23:36 Temperature 98.1 F 98.1 F Pulse Rate 82 Pulse Rate [Pulse Oximeter] 76 Respiratory Rate 16 16 Blood Pressure 113/70 Blood Pressure [Le ft Upper Arm] 130/86 Pulse Oximetry 97 97 98 Oxygen Delivery Me thod Room Air Course Course ED Course: Reviewed prior primary care visit from September 26 which was follow-up for hypokalemia, patient had been hospitalized for nausea, vomiting, electrolyte disturbances. Also reviewed recent emergency department visit from September 12 at outside facility when patient was seen with acute encephalopathy related to alcohol use as well as alcohol withdrawal, at that time CT scan was performed which did not demonstrate evidence of cirrhosis, no ascites. At that visit, patient was on Lasix 20 mg twice a day, spironolactone 100 mg once a day Protonix 40 mg daily. Patient seen and examined, presents with daughter today for abdominal bloating. No pain, did vomit once, still having stools and normal urine output. History of hepatitis with ascites, continued alcohol use. On exam here, vital is stable, no jaundice, no abdominal tenderness, no fluid wave. Bedside ultrasound does not demonstrate any fluid in the splenorenal or hepatorenal gutters. Given high-pitched bowel sounds and bloating sensation, concern for ileus or less likely bowel obstruction. There may be small volume ascites but certainly nothing that would need to be drained at this point. No fever, no tenderness, no suggestion of SBP. Labs and CT scan are ordered. Reevaluation(s) Time of Reevaluation #1: 00:01 Reevaluation #1: CT abdomen and pelvis independently interpreted by me with gallstones, no ascites, no evidence for bowel obstruction, minimal stool, mild pericholecystic fluid but no gallbladder wall thickening. Labs independently interpreted by me with pancytopenia. Time of Reevaluation #2: 00:17 Reevaluation #2: Labs independently interpreted by me my hypo magnesemia, slightly elevated AST ALT but normal alkaline phosphatase, normal lipase. Magnesium will be replaced intravenously and anticipate discharge. Radiology interpretation of CT scan with mild pericholecystic fluid, however patient has no right upper quadrant tenderness, normal white blood cell count normal, no elevation in the total bili, mildly elevated LFTs, clinically acute cholecystitis is unlikely. IMPRESSION: 1. Hydropic gallbladder with mild pericholecystic fluid contains several calcified stones. Recommend correlation with right upper quadrant ultrasound for acute cholecystitis. 2. Hepatic steatosis. 3. Abundant left upper quadrant collateral vessels. 4. 4 mm nonobstructing right nephrolith. Vital Signs Vital signs: Initial Vital Signs Temperature 98.1 F 11/13/24 23:19 Temperature Source Temporal Artery Scan 11/13/24 23:19 Pulse Rate 76 11/13/24 23:19 Respiratory Rate 16 11/13/24 23:19 Blood Pressure 130/86 11/13/24 23:19 Blood Pressure Mean 100 11/13/24 23:19 Blood Pressure Position Sitting 11/13/24 23:19 Pulse Oximetry 97 11/13/24 23:19 Oxygen Delivery Method Room Air 11/13/24 23:19 Vital Signs Temperature 98.1 F 11/13/24 23:19 Pulse Rate 76 11/13/24 23:19 Respiratory Rate 16 11/13/24 23:19 Blood Pressure 130/86 11/13/24 23:19 Pulse Oximetry 97 11/13/24 23:19 Oxygen Delivery Method Room Air 11/13/24 23:19 Temperature 98.1 F 11/13/24 23:36 Pulse Rate 82 11/13/24 23:36 Respiratory Rate 16 11/13/24 23:36 Blood Pressure 113/70 11/13/24 23:36 Pulse Oximetry 98 11/13/24 23:36 Oxygen Delivery Method Room Air 11/13/24 23:19 MDM - Abdominal Pain Lab Data Labs: Lab Results 11/13/24 Range/Units 23:28 WBC 3.83 L (4.50-11.00) K/uL RBC 3.99 L (4.30-5.90) m/uL Hgb 12.3 L (13.5-17.5) gm/dL Hct 37.6 (37.0-53.0) % MCV 94 (80-100) fL MCH 31 (26-34) pg MCHC 33 (32-36) gm/dL RDW Coeff of Lesley 17.9 H (11.5-15.5) % Plt Count 139 L (140-440) K/uL Neut % (Auto) 55.9 (42.0-72.0) % Lymph % (Auto) 24.3 (20-44) % Long % (Auto) 15.9 H (0.0-11.0) % Eos % (Auto) 2.6 (0.0-7.0) % Baso % (Auto) 0.5 (0.0-3.0) % Neut # (Auto) 2.10 (1.7-7.0) K/uL Lymph # (Auto) 0.90 (0.90-2.90) K/uL Long # (Auto) 0.60 (0.00-0.90) K/UL Eos # (Auto) 0.10 (0.00-0.50) K/uL Baso # (Auto) 0.00 (0.00-0.30) K/uL Abs Immat Gran (auto) 0.00 (0.00-0.30) K/uL Imm/Tot Granulo (auto) 0.8 % INR 1.04 (0.91-1.10) Discharge Plan Discharge Clinical Impression: Pancytopenia, Hypomagnesemia, Alcoholic hepatitis without ascites Patient Disposition: Home, Self-Care Condition: Stable Instructions: Hypomagnesemia (ED), Alcoholic Hepatitis (ED), Pancytopenia (DC) Additional Instructions: Increase your Lasix (furosemide) 2 tablets in the morning and 1 tablet in the afternoon for the next 3 days, then back to 1 tablet twice a day Call [phone] to schedule an appointment to establish care Activity Level: Activity as Tolerated Discharge Diet: Regular Prescriptions: No Action multivitamin Tablet 1 tab PO DAILY Qty: 100 0RF thiamine HCl (vitamin B1) 100 mg tablet 100 mg PO DAILY Qty: 100 0RF lactulose 10 gram/15 mL solution 20 g PO DAILY Qty: 946 2RF gabapentin 300 mg capsule 300 mg PO TID aspirin 81 mg tablet,chewable 1 tab PO DAILY folic acid 1 mg tablet 1 mg PO DAILY fluticasone propionate 50 mcg/actuation spray,suspension 1 spray INTRANASAL DAILY cholecalciferol (vitamin D3) 125 mcg (5,000 unit) capsule 125 mcg PO DAILY potassium chloride 20 mEq tablet,ER particles/crystals 20 meq PO DAILY magnesium oxide 400 mg (241.3 mg magnesium) tablet 400 mg PO DAILY furosemide 20 mg tablet 20 mg PO BID spironolactone 50 mg tablet 50 mg PO BID mirtazapine 7.5 mg tablet 7.5 mg PO QPM Follow Up/Referrals: Provider,Not a Local [Primary Care Provider, Family Practice] Stand Alone Forms: [employer] Info Instructions
--- OUTSIDE RECORDS SUMMARY | 2024-11-13 23:14 | XMS_ITS | Clinical Summary ---
Author Organization [facility] Address [address] [place] [address] Care Team Providers Care Shop Tech Name Role Phone No Primary/Referring, Carlos Primary Care Provider Unavailable Source Comments You are receiving this document as you are listed as the primary care provider,follow-up provider, or the patient has been referred to you for consultation.This is in compliance with the Medicare and[facility] EHR Incentive Program,which states Providers who transition their patient to another setting of careor provider of care or refers their patient to another provider of care shouldprovide summary care record for each transition of care or referral. [facility] Allergies No known active allergies Medications metoprolol succinate (TOPROL XL) 100 MG 24 hour release tablet Take 1 Tablet (100 mg) by mouth every evening. 90 Tablet 3 12/08/2021 2:34 PM CDT 12/08/2021 Active Active Problems No known active problems Immunizations Immunization Administration Dates Next Due Pfizer Monovalent 12+ Purple Top 07/29/2020,04/0 04/2020 Social History Tobacco Use Types Packs/Day Years Used Date Smoking Tobacco: Never Smokeless Tobacco: Never Tobacco Cessation:Counseling Given: Not Answered Alcohol Use Standard Drinks/Week Comments Not Asked 0 (1 standard drink = 0.6 oz pur e alcohol) Sex and Gender Information Value Date Recorded Sex Assigned at Not on file Legal Sex Male 6:29 AM CDT Gender Identity Not on file Sexual Orientation Not on file Last Filed Vital Signs Vital Sign Reading Time Taken Comments Blood Pressure 129/82 01/18/2022 10:30 AM CDT Pulse 62 01/18/2022 10:30 AM CDT Temperature 36.9 C (98.4 F) 12/08/2021 8:28 AM CDT Respiratory Rate 17 12/08/2021 8:28 AM CDT [...] Services) 1982 Adult Preventive Visit 02/24/1984 HepB Vaccine (1) 1985 Cholesterol 2001 Pneumococcal Vaccine 50+ Yrs (1 of 1 - PCV) 02/24/2016 Zoster/Shingles Vaccine (1 o f 2) 02/24/2016 DTaP/Tdap/Td Vaccine (2 - Tdap) 07/10/2023 07/09/2013 COVID-19 Vaccine (3 - 2023-2 5 season) 2023 07/29/2020, 07/08/2020 Influenza Vaccine (#1) 2024 HepA Vaccine Aged Out No longer eligi ble based on patient's age to complete this topic Hib Vaccine Aged Out No longer eligi ble based on patient's age to complete this topic IPV (Polio) Vaccine Aged Out No longe r eligible based on patient's age to complete this topic MCV4 Vaccine Aged Out No longer eligi ble based on patient's age to complete this topic Meningococcal B Vaccine Aged Out No l onger eligible based on patient's age to complete this topic Insurance [facility] [employer] Advance Directives * Full Code (Latest Code Status on File) Date Activated Date Inactivated Comments 12/07/2021 2:25 AM 12/08/2021 6:29 PM Care Teams Shop Tech Relationship Specialty Start Date End Date No Primary/Referring, Phy PCP - General 12/06/21
--- OUTSIDE RECORDS SUMMARY | 2024-11-13 23:14 | XMS_ITS | Encounter Summary ---
Author Organization [facility] Address [address] [address] Phone Care Team Providers Care Senior Administrator Support Name Role Phone Choice, No Pcp-Patient Primary Care Provider Carly vailable Encounter Details Date Type Department Care Team ([facility] Contact Info) Description 10/15/[address] [facility] [address] [place], [place] [id number] Fish, Nena Social History Tobacco Use Types Packs/Day Years Used Date Smoking Tobacco: Never Passive Smoke Exposure: Never Smokeless Tobacco: Never Alcohol Use Standard Drinks/Week Comments Yes 0 (1 standard drink = 0.6 oz pure alcohol) recently quit and restarted this weeks, unsure of amount, previously drinking 1.75 L every couple of days [facility] Utilities Answer Date Recorded In the past 12 months has e [employer], gas, oil, or water [employer] threatened to shut off services in your home? No 09/14/2024 PHQ-2 Answer Date Recorded PHQ-2 Score 0 11/06/2018 Hunger Vital Sign Answer Date Recorded Within the past 12 months, y ou worried that your food would run out before you got the money to buy more. Never true 09/15/19 25 Within the past 12 months, t he food you bought just didn't last and you didn't have money to get more. Never true 09/14/2024 PRAPARE - Transportation Answer Date Re corded In the past 12 months, has l ack of transportation kept you from medical appointments or from getting medications? No 11/2024 In the past 12 months, has l ack of transportation kept you from meetings, work, or from getting things needed for daily living? No 09/14/2024 Housing Stability Vital Sign Answer Art e Recorded In the last 12 months, was t here a time when you were not able to pay the mortgage or rent on time? No 09/14/2024 In the past 12 months, how m any times have you moved where you were living? 0 09/14/2024 At any time in the past 12 m [facility], were you homeless or living in a nursing home (including now)? No 09/14/2024 EH IP Custom IPV Answer Date Recorded Do you feel UNSAFE in any of your personal relationships with your family members or any other acquaintances? No 2024 Sex and Gender Information Value Date Recorded Sex Assigned at Male 09/12/2024 8:01 PM CDT Legal Sex Male 12:56 PM CDT Gender Identity Male 09/12/2024 8:01 PM CDT Sexual Orientation Not on file documented as of this encounter Functional Status * Patient's Vision Adequate to Safely Complete Daily Activities Answer Date of Assessment Author Yes 09/12/2024 8:10 PM CDT Fidelina Gamez, ELIZABETH * Patient's Memory Adequate to Safely Complete Daily Activities Answer Date of Assessment Author No 09/12/2024 8:10 PM CDT Fidelina Gamez, RN documented as of this encounter Mental Status * Patient's Judgment Adequate to Safely Complete Daily Activities Answer Entry Date Author Yes 09/12/2024 8:10 PM CDT Fidelina Gamez, RN documented in this encounter Miscellaneous Notes * Telephone Encounter - Nena Mosquera - 10/15/2024 10:45 AM CDT called pt, no answer, lvm Pt needs to reschedule 10/16 gastro appt documented in this encounter Plan of Treatment Upcoming Encounters Date Type Department Care Team (Late st Contact Info) Description 12/15/2024 11:[address] [facility] [address] [place] [id number] Tania Colvin, LEGAL ASSISTANT, [facility] [address] [place] [address] documented as of this encounter Visit Diagnoses Not on filedocumented in this encounter Care Teams Senior Administrator Support Relationship Specialty Start Date End Date Choice, No Pcp-Patient PCP - General 09/12/24 documented as of this encounter
--- OUTSIDE RECORDS SUMMARY | 2024-11-13 23:14 | XMS_ITS | Encounter Summary ---
Author Organization [facility] Address [address] [address] Phone Care Team Providers Care Yarding Engineer Name Role Phone Choice, No Pcp-Patient Primary Care Provider Carly vailable Encounter Details Date Type Department Care Team (Latest Contact Info) Description 09/30/2024 Travel Social History Tobacco Use Types Packs/Day Years Used Date Smoking Tobacco: Never Passive Smoke Exposure: Never Smokeless Tobacco: Never Alcohol Use Standard Drinks/Week Comments Yes 0 (1 standard drink = 0.6 oz pure alcohol) recently quit and restarted this weeks, unsure of amount, previously drinking 1.75 L every couple of days [facility] Utilities Answer Date Recorded In the past 12 months has [facility], gas, oil, or water [facility] threatened to shut off services in your [...] any time in the past 12 m onths, were you homeless or living in a residential (including now)? No 09/14/2024 EH IP Custom [...] Author Yes 09/12/2024 8:10 PM CDT Fidelina Gamez RN * Patient's Memory Adequate to Safely Complete Daily Activities Answer Date of Assessment Author No 09/12/2024 8:10 PM HUMAIRAT Fidelina Gamez RN documented as of this encounter Mental Status * Patient's Judgment Adequate to Safely Complete Daily Activities Answer Entry Date Author Yes 09/12/2024 8:10 PM HUMAIRAT Fidelina Gamez RN documented in this encounter Plan of Treatment Upcoming Encounters Date Type Department Care Team (Late st Contact Info) Description 12/15/2024 11:00 AM CDT Appointment [facility] [address], [place] [phone] Tania Colvin, SADDLE TREE STITCHER, MORPHOLOGIST [address] [place] [address] documented as of this encounter Visit Diagnoses Not on filedocumented in this encounter Care Teams Yarding Engineer Relationship Specialty Start Date End Date Choice, No Pcp-Patient PCP - General 09/12/24 documented as of this encounter
--- OUTSIDE RECORDS SUMMARY | 2024-11-13 23:15 | XMS_ITS | Encounter Summary ---
Author Organization [email or web address] Address [address] [place] [address] Care Team Providers Care Recreation Therapy Aides Teacher Name Role Phone No Primary/Referring, Phy Primary Care Provider Unavailable Encounter Details Date Type Department Care Team (Late st Contact Info) Description 04/20/2012 Home Care Visit [facility] [address] [place] [address], [address] [place] [address] Rodger Frazier, RN [address] [place] [address] Social History Tobacco Use Types Packs/Day Years [...] pulled off. When he left the hospital the bottom of incision was still bleeding [...] weekend. VS: b/p 116/70, r-16, p-90, t-98.6. MAHC:3. Recommendations: SNV for SOC, then SNV 2x week for 3 weeks. PT for eval and treat. Payor is [facility]. LES POURER LES POURER LES POURER documented in this encounter Plan of Treatment Not on file documented as of this encounter Visit Diagnoses Not on filedocumented in this encounter Additional Health Concerns Infection Onset Date Last Indicated Resolved Time R/O COVID19 12/07/2021 12/07/2021 12/07/2021 9:52 AM CDT COVID19 12/07/2021 12/07/2021 12/18/2021 3:17 AM CDT documented as of this encounter Care Teams Recreation Therapy Aides Teacher Relationship Specialty Start Date End Date No Primary/Referring, Phy PCP - General 12/06/21 documented as of this encounter
--- OUTSIDE RECORDS SUMMARY | 2024-11-13 23:15 | XMS_ITS | Encounter Summary ---
Author Organization [employer] Address [address] [place] [address] Care Team Providers Care Signal Mechanic Name Role Phone No Primary/Referring, Phy Primary Care Provider Unavailable Encounter Details Date Type Department Care Team (Late st Contact Info) Description 04/29/2012 Home Care Visit [facility] [address] [place] [address], [address] [place], [place] [id number] Rodger Frazier, RN [address] [place] [address] Social History Tobacco Use Types Packs/Day Years [...] healing. It is clean, dry and intact. Eva removed today with no noted problems. No [...] needs. No further homecare needed. Payor is [facility]. CLEANER CLEANER documented in this encounter Plan of Treatment Not on file documented as of this encounter Visit Diagnoses Not on filedocumented in this encounter Additional Health Concerns Infection Onset Date Last Indicated Resolved Time R/O COVID19 12/07/2021 12/07/2021 12/07/2021 9:52 AM CDT COVID19 12/07/2021 12/07/2021 12/18/2021 3:17 AM CDT documented as of this encounter Care Teams Signal Mechanic Relationship Specialty Start Date End Date No Primary/Referring, Phy PCP - General 12/06/21 documented as of this encounter
--- OUTSIDE RECORDS SUMMARY | 2024-11-13 23:15 | XMS_ITS | Clinical Summary ---
Author Organization [facility] Address [address] [address] Phone Care Team Providers Care Vocational Nursing Instructor Name Role Phone Choice, No Pcp-Patient Primary Care Provider Carly vailable Allergies No known active allergies Medications spironolactone (Aldactone) 50 MG tablet Take 100 mg by mouth one time a day. Active mirtazapine (Remeron) 7.5 MG tablet Take 7.5 mg by mouth at bedtime. Active furosemide (Lasix) 20 MG tablet Take 20 mg by mouth two times a day. Active pantoprazole (Protonix) 40 MG delayed-release tablet Take 40 mg by mouth one time a day. Do not crush. Active cholecalciferol , vitamin D3, 125 MCG (5000 UT) tablet Take 5,000 Units by mouth one time a day. 1 unit of Vitamin D equals 0.025 mcg of Vitamin D Active MAGnesium-Oxide 400 (240 Mg) MG tablet Take 400 mg by mouth one time a day. Active potassium chloride CR (K-Dur, Klor-Con M) 20 MEQ tablet Take 20 mEq by mouth one time a day. Do not crush. Active zinc gluconate 50 MG tablet Take 50 mg by mouth one time a day. Active aspirin 81 MG chewable tablet Chew and swallow 1 Tablet one time a day. Take with food. 30 Tablet 09/16/2024 10:38 AM CDT Active gabapentin (Neurontin) 300 MG capsule Take 2 Capsules by mouth three times a day. 180 Capsule 09/16/2024 10:38 AM CDT 5 Active thiamine (Vitamin B-1) 100 MG tablet Take 1 Tablet by mouth one time a day for 30 days. 30 Tablet 09/16/2024 10:38 AM CDT 5 10/17/19 25 folic acid 1 MG tablet Take 1 Tablet by mouth one time a day for 30 days. 30 Tablet 09/16/2024 10:38 AM CDT 5 10/17/19 25 Active Problems Problem Noted Date Diagnosed Date Acute metabolic encephalopathy 09/13/2024 Alcohol use disorder, severe, dependence 025 Tobacco use 09/12/2024 Alcoholic hepatitis with ascites 05/21/2024 Alcoholic cirrhosis of liver 05/20/2024 Anemia, macrocytic 05/20/2024 Hypomagnesemia 05/20/2024 Hypocalcemia 05/20/2024 Hypoalbuminemia 05/20/2024 Varices of spleen 05/20/2024 Vitamin D deficiency 05/20/2024 Hypokalemia 05/19/2024 Weakness 05/19/2024 Atrial fibrillation 01/03/2022 Liver mass 11/18/2020 Presence of artificial hip joint, bilateral 04/09 Scoliosis 04/21/2014 Encounters Date Type Department Care Team Description 10/15/2024 Telephone [facility] [address] [place] [address] Fish, Nena 09/30/2024 Travel 09/22/2024 Orders Only [facility] [address] [place] [address] [id number] Theresa Hallman Hypomagnesemia (Primary Dx); Alcoholic cirrhosis, unspecified whether ascites present (HCC) 09/17/2024 Orders Only [facility] [address] [place] [address] [phone] Irene Milton CMA Metabolic encephalopathy (Primary Dx) 09/12/2024 7:37 PM CDT - 09/16/2024 12:40 PM CDT Hospital Encounter MED/SURG [address] [place], [place] [address] Shamir Irwin MD Aliyeva, Gulnara D, MD Kasper, Travis J, MD Varices of spleen (Primary Dx); Liver mass; Alcoholic cirrhosis of liver without ascites (HCC); Acute metabolic encephalopathy Discharge Disposition: Home and/or Self Care 09/12/2024 1:27 PM CDT - 09/12/2024 6:11 PM CDT Emergency [facility]PARTMENT [address] [place] [address] Alba Batres APRN, CNP Alcohol withdrawal syndrome, with delirium (HCC) (Primary Dx); Encephalopathy, unspecified type; Amnesia memory loss; Hypomagnesemia Discharge Disposition: Admit to [facility] 09/12/2024 Telephone [facility]ITAL[facility] [address] [place] [address] Carmelita Segura MD 09/12/2024 Travel 08/13/2024 6:42 PM CDT - 08/13/2024 11:16 PM CDT Emergency [facility] [address] [place] [id number] Brendan Rodriguez MD Chronic alcohol use (Primary Dx); Syncope, unspecified syncope type; Hypokalemia; Hypomagnesemia Discharge Disposition: Home and/or Self Care 08/12/2024 9:33 PM CDT - 08/13/2024 1:26 AM CDT Emergency [facility] EM[facility]ENC[facility]PARTMENT [address] [place] [phone] Zohaib Estrada MD Alcoholism (HCC) (Primary Dx); Alcoholic intoxication without complication (HCC); Hypomagnesemia; Alcoholic hepatitis without ascites; Macrocytic anemia Discharge Disposition: Home and/or Self Care from Last 3 Months Immunizations Immunization Administration Dates Next Due COVID-19 Vaccine Unspecified 07/29/2020,07/09/19 21 Tdap (7 years and older) 07/09/2013 Social History Tobacco Use Types Packs/Day Years Used Date Smoking Tobacco: Never Passive Smoke Exposure: Never Smokeless Tobacco: Never Tobacco Cessation:Counseling Given: No Alcohol Use Standard Drinks/Week Comments Yes 0 (1 standard drink = 0.6 oz pure alcohol) recently quit and restarted this weeks, unsure of amount, previously drinking 1.75 L every couple of days [facility] Utilities Answer Date Recorded In the past 12 months has th e electric, gas, oil, or water company threatened to shut off services in your [...] any time in the past 12 m [facility], were you homeless or living in a [facility] (including now)? No 09/14/2024 EH IP Custom [...] PM CDT Sexual Orientation Not on file Obstetrics History Last Filed Vital Signs Vital Sign Reading Time Taken Comments Blood Pressure 114/73 09/16/2024 7:27 AM CDT Pulse 90 09/16/2024 7:27 AM CDT Temperature 36.6 C (97.9 F) 09/16/2024 7:27 AM CDT Respiratory Rate 12 09/16/2024 7:27 AM CDT Oxygen Saturation 95% 09/16/2024 7:27 AM CDT Inhaled Oxygen Concentration - - Weight 79.2 kg (174 lb 9.7 oz) 09/12/2024 8:30 P M CDT Height 170.2 cm (5' 7) 09/12/2024 8:30 PM CDT Body Mass Index 27.35 09/12/2024 8:30 PM CDT Plan of Treatment Upcoming Encounters Date Type Department Care Team (Late st Contact Info) Description 12/15/2024 11:00 AM CDT Appointment [facility] [address] [place] [address] Tania Colvin, SHIFT FOREMAN, CNC OPERATOR MACHINIST [address] [place], [place] [id number] Health Maintenance Due Date Last Done Comments CT Colonography 1966 Cologuard 1966 Colonoscopy 1966 Colorectal Cancer Screening 1966 FIT/FOBT 1966 Sigmoidoscopy 1966 Hepatitis B Vaccine (Standin g Order) (1 of 3 - 19+ 3-dose series) 1985 Pneumococcal Vaccine: 50+ yr s (Standing Order) (1 of 2 - PCV) 1985 Shingrix (Zoster recombinant ) vaccine (Standing Order) (1 of 2) 02/24/2016 TETANUS (Standing Order) 07/10/2023 07/09/2013 PERTUSSIS (Standing Order) Completed 07/09/2013 HPV Vaccine (Standing Order) Aged Out No longer eligible based on patient's age to complete this topic Procedures Procedure Name Priority Date/Time Associated Diagnosis Comments MAGNESIUM Routine 09/14/2024 4:57 AM CDT MR BRAIN WO W CONTRAST STAT 8:33 PM CDT SALICYLATE Timed 09/13/2024 5:58 AM CDT ACETAMINOPHEN Timed 09/13/2024 5:58 AM CDT CARBON MONOXIDE Timed 09/13/2024 5:58 AM CDT T4, FREE Timed 09/13/2024 5:58 AM CDT THYROID STIMULATING HORMONE Timed 09/13/2024 5:58 AM CDT SED RATE Timed 09/13/2024 5:58 AM CDT C REACTIVE PROTEIN Timed 09/13/2024 5: 58 AM CDT FOLATE Timed 09/13/2024 5:58 AM CDT MAGNESIUM Timed 09/13/2024 5:58 AM CDT VITAMIN B12 Timed 09/13/2024 5:58 AM CDT BASIC METABOLIC PANEL Timed 09/13/2024 5:58 AM CDT VENOUS BLOOD GASES STAT 09/12/2024 5: [address] ABDOMEN PELVIS W IV CONTRAST STAT 09/12/2024 3:[address] HEAD WO IV CONTRAST STAT 3:00 PM CDT AMMONIA STAT 09/12/2024 2:52 PM CDT URINE DRUG SCREEN Add on 09/12/2024 2:3 7 PM CDT URINE MICROSCOPIC EXAMINATION STAT 09/12/2024 2:37 PM CDT URINALYSIS, REFLEX TO CULTURE STAT 09/12/2024 2:37 PM CDT ALCOHOL Add on 09/12/2024 1:32 PM CDT MAGNESIUM STAT 09/12/2024 1:32 PM CDT LIPASE STAT 09/12/2024 1:32 PM CDT COMPREHENSIVE METABOLIC PANEL STAT 09/12/2024 1:32 PM CDT HEMOGRAM/DIFF STAT 09/12/2024 1:[address] HEAD 09/12/2024 12:[address] HEAD WO IV CONTRAST STAT 8:18 PM CDT AMMONIA STAT 08/13/2024 7:34 PM CDT LACTIC ACID, VENOUS STAT 08/13/2024 7 :34 PM CDT HOLD NA CITRATE STAT 08/13/2024 7:04 PM CDT HOLD SERUM TUBE STAT 08/13/2024 7:04 PM CDT HOLD GARCIA TUBE STAT 08/13/2024 7:04 PM CDT MAGNESIUM STAT 08/13/2024 7:04 PM CDT COMPREHENSIVE METABOLIC PANEL STAT 08/13/2024 7:04 PM CDT HEMOGRAM/DIFF STAT 08/13/2024 7:04 PM CDT ALCOHOL STAT 08/13/2024 7:04 PM CDT EKG 12-LEAD STAT 08/13/2024 6:51 PM CDT from Last 3 Months Results * MAGNESIUM (09/14/2024 4:57 AM CDT) [facility] Magnesium 1.9 1.8 - 2.7 mg/dL 09/14/2024 6:09 AM CDT [facility] Blood BLOOD SPECIMEN / Unknown Venipuncture / Unknown 09/14/2024 4:57 AM CDT 09/14/2024 5:37 AM CDT us Heidi Clark MD EC CHEMISTRY ORDERABLES Fin al Result [facility] [address] [place], [place] [id number] * MR BRAIN WO W CONTRAST (09/13/2024 8:33 PM CDT) Anatomical Region Laterality Modality Head Magnetic Resonan ce 09/13/2024 8:33 PM CDT Narrative 09/13/2024 11:19 PM CDT EXAM: MR BRAIN WO W CONTRAST LOCATION: [facility] DATE: 09/13/2024 INDICATION: Memory loss COMPARISON: outside study CT CONTRAST: 16 m Clariscan TECHNIQUE: Routine multiplanar multisequence head MRI without and with intravenous contrast. FINDINGS: INTRACRANIAL CONTENTS: No acute or subacute infarct. No mass, acute hemorrhage, or extra-axial fluid collections. Scattered nonspecific T2/FLAIR hyperintensities within the cerebral white matter most consistent with mild chronic microvascular ischemic change. Mild generalized cerebral atrophy. No hydrocephalus. Normal position of the cerebellar tonsils. No pathologic contrast enhancement. SELLA: No abnormality accounting for technique. OSSEOUS STRUCTURES/SOFT TISSUES: Normal marrow signal. The major intracranial vascular flow voids are maintained. ORBITS: No abnormality accounting for technique. SINUSES/MASTOIDS: No paranasal sinus mucosal disease. No middle ear or mastoid effusion. IMPRESSION: 1. Mild age-related changes without acute intracranial abnormality. Electronically signed by: Aries Barnett MD 09/13/2024 11:19 PM CDT Procedure Note Aries Barnett MD - 09/13/2024 EXAM: MR BRAIN WO W CONTRAST LOCATION: [facility] DATE: 09/13/2024 INDICATION: Memory loss COMPARISON: outside study CT CONTRAST: 16 m Clariscan TECHNIQUE: Routine multiplanar multisequence head MRI without and withintravenous contrast. FINDINGS: INTRACRANIAL CONTENTS: No acute or subacute infarct. No mass, acutehemorrhage, or extra-axial fluid collections. Scattered nonspecificT2/FLAIR hyperintensities within the cerebral white matter most consistentwith mild chronic microvascular ischemic change. Mild generalized cerebralatrophy. No hydrocephalus. Normal position of the cerebellar tonsils. Nopathologic contrast enhancement. SELLA: No abnormality accounting for technique. OSSEOUS STRUCTURES/SOFT TISSUES: Normal marrow signal. The majorintracranial vascular flow voids are maintained. ORBITS: No abnormality accounting for technique. SINUSES/MASTOIDS: No paranasal sinus mucosal disease. No middle ear ormastoid effusion. IMPRESSION: 1. Mild age-related changes without acute intracranial abnormality. Electronically signed by: Aries Barnett MD 09/13/2024 11:19 PM CDT Heidi Clark MD EC MRI ORDERABLES Final Res ult * C-REACTIVE PROTEIN (09/13/2024 5:58 AM CDT) C-Reactive Protein 0.1 <=0.8 mg/dL 09/13/2024 6:30 AM CDT [facility] Blood BLOOD SPECIMEN / Unknown Venipuncture / Unknown 09/13/2024 5:58 AM CDT 09/13/2024 6:04 AM CDT Shamir Irwin MD EC CHEMISTRY ORDERABLES Fi nal Result [facility] [address] * (ABNORMAL) BASIC METABOLIC PANEL (09/13/2024 5:58 AM CDT) Sodium 134 134 - 143 mEq/L 09/13/2024 6:30 AM CDT [facility] Potassium 3.0(L) 3.4 - 5.1 mEq/L 09/13/2024 6:30 AM CDT [facility] Chloride 103 99 - 110 mEq/L 09/13/2024 6:30 AM CDT [facility] Carbon Dioxide 23 19 - 29 mEq/L 09/13/2024 6:30 AM CDT [facility] Anion Gap 8.0 3.0 - 15.0 mEq/L 09/13/2024 6:30 AM CDT [facility] Blood Urea Nitrogen 7 5 - 24 mg/dL 09/13/2024 6:30 AM CDT [facility] Creatinine 0.59(L) 0.70 - 1.20 mg/dL 09/13/2024 6:30 AM CDT [facility] Glomerular Filtration Rate 112 >60 mL/min/1. 73 m*2 09/13/2024 6:30 AM CDT [facility] Comment:Risk of cardiovascul ar disease increases when GFR is abnormal; persistently reduced GFR values are a specific indication of CKD. This calculation uses CKD- EPI 2020 equation without adjustment for race; it has not been validated in women. Calcium 8.9 8.4 - 10.5 mg/dL 09/13/2024 6:30 AM CDT [facility] Glucose 77 70 - 99 mg/dL 09/13/2024 6:30 AM CDT [facility] Blood BLOOD SPECIMEN / Unknown Venipuncture / Unknown 09/13/2024 5:58 AM CDT 09/13/2024 6:04 AM CDT Narrative [facility] - 09/13/2024 6:30 AM CDT Current ADA criteria for Glucose: Normal: 70-99 mg/dL Impaired Fasting Glucose: 100-125 mg/dL Diabetes Mellitus: at or above 126 mg/dL The diagnosis of diabetes must be confirmed on a subsequent day by measuring Fasting Plasma Glucose, 2-hr PG or random plasma glucose (if symptoms are present). Shamir Irwin MD EC CHEMISTRY ORDERABLES Fi nal Result Performing Organization Address [facility] Co de Phone Number [facility] [address] [place] [address] * SEDIMENTATION RATE (09/13/2024 5:58 AM CDT) ESR 17 0 - 20 mm/hr 09/13/2024 6:29 AM CDT [facility] Blood BLOOD SPECIMEN / Unknown Venipuncture / Unknown 09/13/2024 5:58 AM CDT 09/13/2024 6:04 AM CDT Shamir Irwin MD EC HEMATOLOGY ORDERABLES F inal Result Performing Organization Address [facility] Co de Phone Number [facility] [address] [place] [address] * T4, FREE (09/13/2024 5:58 AM CDT) T4, Free 0.9 0.7 - 1.7 ng/dL 09/13/2024 6:51 AM CDT [facility] Blood BLOOD SPECIMEN / Unknown Venipuncture / Unknown 09/13/2024 5:58 AM CDT 09/13/2024 6:04 AM CDT Shamir Irwin MD EC CHEMISTRY ORDERABLES AB N Final Result Performing Organization Address [facility] Co de Phone Number [facility] [address] [place] [address] * SALICYLATE (09/13/2024 5:58 AM CDT) Salicylate <5 <=25 mg/dL 09/13/2024 8:11 AM CDT [facility] Blood BLOOD SPECIMEN / Unknown Venipuncture / Unknown 09/13/2024 5:58 AM CDT 09/13/2024 6:04 AM CDT Shamir Irwin MD EC CHEMISTRY ORDERABLES Fi nal Result Performing Organization Address [facility] de Phone Number [facility] [address] [place] [address] * (ABNORMAL) MAGNESIUM (09/13/2024 5:58 AM CDT) Pathologist [facility] Magnesium 1.4(L) 1.8 - 2.7 mg/dL 09/13/2024 6:30 AM CDT [facility] Blood BLOOD SPECIMEN / Unknown Venipuncture / Unknown 09/13/2024 5:58 AM CDT 09/13/2024 6:04 AM CDT Shamir Irwin MD EC CHEMISTRY ORDERABLES Fi nal Result Performing Organization Address [facility] Co de Phone Number [facility] [address] [place] [address] * CARBON MONOXIDE (09/13/2024 5:58 AM CDT) Carbon Monoxide 3.4 % 6:10 AM CDT [facility] Comment:Reference Ranges: No nsmokers <2.5%, Smokers: <9% Blood WHOLE BLOOD SPECIMEN / Unknown Venipuncture / Unknown 09/13/2024 5:58 AM CDT 09/13/2024 6:04 AM CDT Shamir Irwin MD EC CHEMISTRY ORDERABLES Fi nal Result Performing Organization Address [facility] de Phone Number [facility] [address] * ACETAMINOPHEN (09/13/2024 5:58 AM CDT) [facility] Acetaminophen <10 <=30 ug/mL 09/13/2024 8:11 AM CDT [facility] Blood BLOOD SPECIMEN / Unknown Venipuncture / Unknown 09/13/2024 5:58 AM CDT 09/13/2024 6:04 AM CDT Narrative [facility] - 09/13/2024 8:11 AM CDT Call Poison Control Center ( ) for guidance in interpretation of results. The Sherry nomogram for single, one time ingestions of acetaminophen is available in [facility]. Shamir Irwin MD EC CHEMISTRY ORDERABLES Fi nal Result Performing Organization Address [facility] de Phone Number [facility] [address] [place] [address] * (ABNORMAL) FOLATE, SERUM (09/13/2024 5:58 AM CDT) Pathologist [facility] Folate 6.3(L) 7.0 - 31.4 ng/mL 09/13/2024 7:31 AM CDT [facility] Blood BLOOD SPECIMEN / Unknown Venipuncture / Unknown 09/13/2024 5:58 AM CDT 09/13/2024 6:04 AM CDT Narrative [facility] - 09/13/2024 7:31 AM CDT Folate Reference Range Normal: 7.0 - 31.4 ng/mL Indeterminate: 3.5 - 6.9 ng/mL Deficient: <3.5 ng/mL Shamir Irwin MD EC CHEMISTRY ORDERABLES Fi nal Result Performing Organization Address City/[facility] Co de Phone Number [facility] [address] [place] [address] * THYROID STIMULATING HORMONE (09/13/2024 5:58 AM CDT) Thyroid Stimulating Hormone 2.56 0.40 - 3.99 uIU/mL 09/13/2024 6:51 AM CDT [facility] Blood BLOOD SPECIMEN / Unknown Venipuncture / Unknown 09/13/2024 5:58 AM CDT 09/13/2024 6:04 AM CDT Shamir Irwin MD EC CHEMISTRY ORDERABLES AB N Final Result Performing Organization Address [facility] Co de Phone Number [facility] [address] [place] [address] * VITAMIN B12 (09/13/2024 5:58 AM CDT) Pathologist [facility] Vitamin B12 341 213 - 816 pg/mL 09/13/2024 7:25 AM CDT [facility] Blood BLOOD SPECIMEN / Unknown Venipuncture / Unknown 09/13/2024 5:58 AM CDT 09/13/2024 6:04 AM CDT Shamir Irwin MD EC CHEMISTRY ORDERABLES Fi nal Result Performing Organization Address [facility] Co de Phone Number [facility] [address] [place] [address] * (ABNORMAL) VENOUS BLOOD GASES (09/12/2024 5:52 PM CDT) Pathologist [facility] pH, Venous 7.46(H) 7.35 - 7.45 09/12/2024 5:55 PM CDT [facility] pCO2, Venous 34(L) 38 - 50 mmHg 09/12/2024 5:55 PM CDT [facility] Bicarbonate (HCO3), Venous 24 23 - 27 mEq/L 09/12/2024 5:55 PM CDT [facility] Base Excess, Venous 0.4 -2.0 - 2.0 09/12/2024 5:55 PM CDT [facility] PATIENT TEMPERATURE FOR BLOOD GAS PH, PCO2, PO2 DATA CONVERSION 37.0 C 09/12/2024 5:55 PM CDT [facility] Blood WHOLE BLOOD SPECIMEN / Unknown Venipuncture / Unknown 09/12/2024 5:52 PM CDT 09/12/2024 5:52 PM CDT us Alba Batres SHIFT FOREMAN, CNC OPERATOR MACHINIST EC CHEMISTRY ORDERAB LES Final Result [facility] [address] [address], [facility] [phone] * CT ABDOMEN PELVIS W IV CONTRAST (09/12/2024 3:05 PM CDT) Anatomical Region Laterality Modality Abdomen, Pelvis Computed Tomogra phy 09/12/2024 3:05 PM CDT Narrative 09/12/2024 3:16 PM CDT This document is currently in Final Status Exam EXAM: CT ABDOMEN PELVIS W IV CONTRAST COMPARISON: None. INDICATION confusion FINDINGS: Multiple contiguous axial images were obtained through the abdomen pelvis following intravenous contrast administration. Lung bases remain clear. Postcontrast images through the liver unremarkable. Gallbladder appears contracted with calculi. Normal pancreas. Spleen showing moderate prominence of 13.7 cm. Multiple varices noted. Liver does not show any abnormal contour or cirrhosis. Adrenal glands unremarkable. Kidneys showing continued function and excretion. 5 mm calcification nonobstructing midportion right kidney. There is no retroperitoneal adenopathy. Images through the pelvis without adenopathy. Decompressed urinary bladder. Detail partially obscured by streak artifact from each hip prosthesis. There is no free fluid. No bowel obstruction. No free air. Appendix is identified most likely showing normal caliber. No inflammatory process in the expected region. Scoliosis thoracolumbar spine without lytic or sclerotic destructive change IMPRESSION: 1. No bowel obstruction. No free air. No free fluid. No inflammatory process right lower quadrant. 2. 5 mm calcification right kidney without obstructive changes. No additional urolithiasis. 3. Prominent varices near the splenic hilum and gastrohepatic recess. There is no evidence of any cirrhosis involving the liver. 4. Gallbladder appears contracted with multiple gallstones Electronically Signed: Howie Hart 09/12/2024 3:16 PM Procedure Note Howie Hart MD - 09/12/2024 This document is currently in Final Status Exam EXAM: CT ABDOMEN PELVIS W IV CONTRAST COMPARISON: None. INDICATION confusion FINDINGS: Multiple contiguous axial images were obtained through the abdomen pelvisfollowing intravenous contrast administration. Lung bases remain clear. Postcontrast images through the liver unremarkable. Gallbladder appearscontracted with calculi. Normal pancreas. Spleen showing moderate prominence of 13.7 cm. Multiple varices noted.Liver does not show any abnormal contour or cirrhosis. Adrenal glands unremarkable. Kidneys showing continued function andexcretion. 5 mm calcification nonobstructing midportion right kidney. There is no retroperitoneal adenopathy. Images through the pelvis without adenopathy. Decompressed urinarybladder. Detail partially obscured by streak artifact from each hipprosthesis. There is no free fluid. No bowel obstruction. No free air. Appendix is identified most likely showing normal caliber. No inflammatoryprocess in the expected region. Scoliosis thoracolumbar spine without lytic or sclerotic destructivechange IMPRESSION: 1. No bowel obstruction. No free air. No free fluid. No inflammatoryprocess right lower quadrant. 2. 5 mm calcification right kidney without obstructive changes. Noadditional urolithiasis. 3. Prominent varices near the splenic hilum and gastrohepatic recess.There is no evidence of any cirrhosis involving the liver. 4. Gallbladder appears contracted with multiple gallstones Electronically Signed: Howie Hart 09/12/2024 3:16 PM us Alba Batres SHIFT FOREMAN, CNC OPERATOR MACHINIST EC CT ORDERABLES Fin al Result * CT HEAD WO IV CONTRAST (09/12/2024 3:00 PM CDT) Only the most recent of2 resultswithin the time period is included. Anatomical Region Laterality Modality Head Computed Tomogra phy 09/12/2024 3:00 PM CDT Narrative 09/12/2024 3:10 PM CDT This document is currently in Final Status Exam EXAM: CT HEAD WO IV CONTRAST COMPARISON: 11/19/2022 INDICATION: confusion, worsening, does not recall hitting head.; FINDINGS: Multiple contiguous axial images were obtained through the intracranial structures without contrast administration. Prominence of the ventricles and sulci indicating atrophy. No intracranial hemorrhage. No mass or mass effect. Bone windows showing well aerated middle ear cavities and mastoid regions. No linear or depressed skull fracture. IMPRESSION: 1. No evidence of any acute intracranial process. 2. No hemorrhage. No mass or mass effect. 3. No skull or skull base fracture Electronically Signed: Howie Hart 09/12/2024 3:10 PM Procedure Note Howie Hart MD - 09/12/2024 This document is currently in Final Status Exam EXAM: CT HEAD WO IV CONTRAST COMPARISON: 11/19/2022 INDICATION: confusion, worsening, does not recall hitting head.; FINDINGS: Multiple contiguous axial images were obtained through the intracranialstructures without contrast administration. Prominence of the ventricles and sulci indicating atrophy. No intracranialhemorrhage. No mass or mass effect. Bone windows showing well aerated middle ear cavities and mastoid regions.No linear or depressed skull fracture. IMPRESSION: 1. No evidence of any acute intracranial process. 2. No hemorrhage. No mass or mass effect. 3. No skull or skull base fracture Electronically Signed: Howie Hart 09/12/2024 3:10 PM us Alba Batres SHIFT FOREMAN, CNC OPERATOR MACHINIST EC CT ORDERABLES Fin al Result * AMMONIA (09/12/2024 2:52 PM CDT) Ammonia 11.0 9.0 - 30.0 umol/L 09/12/2024 3:07 PM CDT [facility] Blood BLOOD SPECIMEN / Unknown Venipuncture / Unknown 09/12/2024 2:52 PM CDT 09/12/2024 2:53 PM CDT Alba Batres APRN, CNC OPERATOR MACHINIST EC CHEMISTRY ORDERAB LES Final Result Performing Organization Address [facility]/ZIP Co de Phone Number [facility] [address] [place] [place] [address] * (ABNORMAL) URINE MICROSCOPIC EXAMINATION (09/12/2024 2:37 PM CDT) Urine WBCs None Seen None Seen /HPF 09/12/2024 2:58 PM CDT [facility] Urine RBCs >20(A) None Seen /HPF 09/12/2024 2:58 PM CDT [facility] Urine Squamous Epithelial Cells None Seen None Seen /LPF 09/12/2024 2:58 PM CDT [facility] Urine Bacteria Trace None Seen, Trace /HPF 09/12/2024 2:58 PM CDT [facility] Urine Mucous 1+(A) None Seen 09/12/2024 2:58 PM CDT [facility] Urine URINE SPECIMEN COLLECTION, CLEAN CATCH / Unknown Non-blood collection / Unknown 09/12/2024 2:37 PM CDT 09/12/2024 2:37 PM CDT Narrative [facility] - 09/12/2024 2:58 PM CDT Urine Culture is not indicated. us Serafin Ridley MD EC URINE ORDERABLES Final Re sult Performing Organization Address City/[facility]/ZIP Co de Phone Number [facility] [address] [place] [phone] [place] [address] * (ABNORMAL) URINALYSIS, REFLEX TO CULTURE (09/12/2024 2:37 PM CDT) UA Color Yellow Yellow 09/12/2024 2:53 PM CDT [facility] UA Appearance Clear Clear 09/12/2024 2:53 PM CDT [facility] Urine Specific [place] 1.020 1.000 - 1.030 09/12/2024 2:53 PM CDT [facility] Urine pH 6.0 5.0 - 8.0 09/12/2024 2:53 PM CDT [facility] Urine Glucose Negative Negative 09/12/2024 2:53 PM CDT [facility] Urine Ketones Negative Negative 09/12/2024 2:53 PM CDT [facility] Urine Protein Trace(A) Negative 09/12/2024 2:53 PM CDT [facility] Urine Bilirubin Negative Negative 2:53 PM CDT [facility] Urine Urobilinogen 1.0 0.2, Normal, 1.0 09/12/2024 2:53 PM CDT [facility] Urine Blood 3+(A) Negative 09/12/2024 2:53 PM CDT [facility] Urine Nitrites Negative Negative 09/12/2024 2:53 PM CDT [facility] Urine Leukocyte Esterase Negative Negative 09/12/2024 2:53 PM CDT [facility] Urine URINE SPECIMEN COLLECTION, CLEAN CATCH / Unknown Non-blood collection / Unknown 09/12/2024 2:37 PM CDT 09/12/2024 2:37 PM CDT us Serafin Ridley MD EC URINE ORDERABLES Final Re sult [facility] [address] [address] [phone] * URINE DRUG SCREEN (09/12/2024 2:37 PM CDT) Urine Amphetamines Screen Negative Positive cut-off concentrati on: 500 ng/mL 09/12/2024 6:01 PM [facility] Urine Barbiturates Screen Negative Positive cut-off concentrati on: 200 ng/mL 09/12/2024 6:01 PM [facility] Urine Benzodiazepines Screen Negative Positive cut-off concentrati on: 150 ng/mL 09/12/2024 6:01 PM [facility] Urine Buprenorphine Screen Negative Positive cut-off concentrati on: 10 ng/mL 09/12/2024 6:01 PM [facility] Urine Cocaine Screen Negative Positive cut-off concentrati on: 150 ng/mL 09/12/2024 6:01 PM [facility] Urine Methadone Screen Negative Positive cut-off concentrati on: 200 ng/mL 09/12/2024 6:01 PM [facility] Urine Methamphetamines Screen Negative Positive cut-off concentrati on: 500 ng/mL 09/12/2024 6:01 PM [facility] Urine Opiates Screen Negative Positive cut-off concentrati on: 100 ng/mL 09/12/2024 6:01 PM [facility] Urine Oxycodone Screen Negative Positive cut-off concentrati on: 100 ng/mL 09/12/2024 6:01 PM [facility] Urine Phencyclidine (PCP) Screen Negative Positive cut-off concentrati on: 25 ng/mL 09/12/2024 6:01 PM [facility] Urine Carboxy-THC Screen Negative Positive cut-off concentrati on: 50 ng/mL 09/12/2024 6:01 PM [facility] Urine Tricyclic Antidepressants Screen Negative Positive cut-off concentrati on: 300 ng/mL 09/12/2024 6:01 PM [facility] Urine VOIDED URINE SPECIMEN / Unknown Non-blood collection / Unknown 09/12/2024 2:37 PM CDT 09/12/2024 5:47 PM [facility] [place] N[place] [facility] - 09/12/2024 6:01 PM [facility] [place] The results are only to be used for medical purposes, these results are not to be used for non-medical purposes. us Alba Batres APRN, LESLI EC URINE ORDERABLES Final Result [facility] [address] [address], [facility] [phone] * (ABNORMAL) COMPREHENSIVE METABOLIC PANEL (09/12/2024 1:32 PM CDT) Sodium 141 137 - 145 mmol/L 09/12/2024 1:51 PM CDT [facility] Potassium 3.8 3.5 - 5.1 mmol/L 09/12/2024 1:51 PM CDT [facility] Chloride 106 98 - 107 mmol/L 09/12/2024 1:51 PM CDT [facility] Carbon Dioxide 24 22 - 30 mmol/L 09/12/2024 1:51 PM CDT [facility] BUN 8(L) 9 - 20 mg/dL 09/12/2024 1:51 PM CDT [facility] Creatinine 0.50(L) 0.66 - 1.25 mg/dL 09/12/2024 1:51 PM CDT [facility] Calcium 9.6 8.4 - 10.2 mg/dL 09/12/2024 1:51 PM CDT [facility] Glucose 104(H) 70 - 100 mg/dL 09/12/2024 1:51 PM CDT [facility] Albumin 4.4 3.5 - 5.0 g/dL 09/12/2024 1:51 PM CDT [facility] Protein, Total 8.2 6.3 - 8.2 g/dL 09/12/2024 1:51 PM CDT [facility] ALKALINE PHOSPHATASE 117 38 - 126 U/L 09/12/2024 1:51 PM CDT [facility] ASPARTATE AMINOTRANSFERASE 49(H) 15 - 46 U/L 09/12/2024 1:51 PM CDT [facility] ALANINE AMINOTRANSFERASE 25 13 - 69 U/L 09/12/2024 1:51 PM CDT [facility] Bilirubin, Total 0.5 0.2 - 1.0 mg/dL 09/12/2024 1:51 PM CDT [facility] eGlomerular Filtration Rate >60 >60 mL/min/1. 73 m*2 09/12/2024 1:51 PM CDT [facility] Anion Gap 11.0 3.0 - 15.0 mmol/L 09/12/2024 1:51 PM CDT [facility] Blood BLOOD SPECIMEN / Unknown Venipuncture / Unknown 09/12/2024 1:32 PM CDT 09/12/2024 1:32 PM CDT Narrative [facility] - 09/12/2024 1:51 PM CDT eGFR calculation based on the Chronic Kidney Disease Epidemiology Collaboration (CKD-EPI) equation refit without adjustment for race. us Serafin Ridley MD EC CHEMISTRY ORDERABLES Maria C l Result [facility] [address] [address] [phone] * (ABNORMAL) HEMOGRAM/DIFFERENTIAL (09/12/2024 1:32 PM CDT) WBC 6.4 4.2 - 9.1 10*9/L 09/12/2024 1:37 PM CDT [facility] RBC 3.87(L) 4.63 - 6.08 10*12/L 09/12/2024 1:37 PM CDT [facility] Hemoglobin 12.0(L) 13.7 - 17.5 gm/dL 09/12/2024 1:37 PM CDT [facility] Hematocrit 37.1(L) 40.1 - 51.0 % 09/12/2024 1:37 PM CDT [facility] MCV 96(H) 79 - 92 fL 09/12/2024 1:37 PM [facility] MCH 31.0 25.7 - 32.2 pg 09/12/2024 1:37 PM [facility] MCHC 32.3 32.3 - 36.5 g/dl 09/12/2024 1:37 PM [facility] RDW 14.1 11.6 - 14.4 % 09/12/2024 1:37 PM [facility] Platelet Count 241 150 - 440 10*9/L 09/12/2024 1:37 PM [facility] Neutrophil % 51.6 34.0 - 67.9 % 09/12/2024 1:37 PM [facility] Lymphocytes % 36.2 21.8 - 53.1 % 09/12/2024 1:37 PM [facility] Monocytes % 9.4 5.3 - 12.2 % 09/12/2024 1:37 PM [facility] Eosinophil % 2.0 0.8 - 7.0 % 09/12/2024 1:37 PM [facility] Basophils % 0.6 0.2 - 1.2 % 09/12/2024 1:37 PM [facility] Immature Granulocytes % 0.2 % 09/12/2024 1:37 PM [facility] Neutrophils Absolute 3.3 1.8 - 5.4 10*9/L 09/12/2024 1:37 PM [facility] Lymphocytes Absolute 2.3 1.3 - 3.6 10*9/L 09/12/2024 1:37 PM [facility] Monocytes Absolute 0.6 0.3 - 0.8 10*9/L 09/12/2024 1:37 PM [facility] Eosinophils Absolute 0.1 0.0 - 0.5 10*9/L 09/12/2024 1:37 PM [facility] Basophils Absolute 0.0 0.0 - 0.1 10*9/L 09/12/2024 1:37 PM CDT [facility] Immature Granulocytes Absolute 0.01 10*9/L 09/12/2024 1:37 PM CDT [facility] Blood BLOOD SPECIMEN / Unknown Venipuncture / Unknown 09/12/2024 1:32 PM CDT 09/12/2024 1:32 PM CDT Serafin Ridley MD EC HEMATOLOGY ORDERABLES Fin al Result Performing Organization Address [facility]/ZIP Co de Phone Number [facility] [address] [address], [facility] [phone] * (ABNORMAL) MAGNESIUM (09/12/2024 1:32 PM CDT) Magnesium 1.3(L) 1.6 - 2.3 mg/dL 09/12/2024 1:51 PM CDT [facility] Blood BLOOD SPECIMEN / Unknown Venipuncture / Unknown 09/12/2024 1:32 PM CDT 09/12/2024 1:32 PM CDT Serafin Ridley MD EC CHEMISTRY ORDERABLES Maria C l Result Performing Organization Address [facility]/ZIP Co de Phone Number [facility] [address] [address], [facility] [phone] * LIPASE (09/12/2024 1:32 PM CDT) Lipase 166 23 - 300 U/L 09/12/2024 1:51 PM CDT [facility] Blood BLOOD SPECIMEN / Unknown Venipuncture / Unknown 09/12/2024 1:32 PM CDT 09/12/2024 1:32 PM CDT Serafin Ridley MD EC CHEMISTRY ORDERABLES Maria C l Result Performing Organization Address City/[facility]/ZIP Co de Phone Number [facility] [address] [address], [facility] [phone] * (ABNORMAL) ALCOHOL (09/12/2024 1:32 PM CDT) Alcohol 97.0(H) <10.0 mg/dL 09/12/2024 2:21 PM CDT [facility] Blood BLOOD SPECIMEN / Unknown Venipuncture / Unknown 09/12/2024 1:32 PM CDT 09/12/2024 2:12 PM CDT Narrative [facility] - 09/12/2024 2:21 PM CDT The results are only to be used for medical purposes, these results are not to be used for non-medical purposes. Alba Batres APRN, CNC OPERATOR MACHINIST EC CHEMISTRY ORDERAB LES Final Result [facility] [address] [address], [facility] [phone] * OS CT HEAD (09/12/2024 12:00 AM CDT) Lulú CuevaenceHong - 09/13/2024 10:40 PM CDT The actual exam was performed at [facility] on 09/12/2024. This exam does not have a report residing in this EMR. Please check for a scanned in report, Care Everywhere Outside Records, or call the performing location for the report. This order was placed into the system and automatically finalized on 09/13/2024. [facility] EC OS FILMS IMAGING ORDERABLES F inal Result * LACTIC ACID, VENOUS (08/13/2024 7:34 PM CDT) Lactic Acid, Venous 1.1 0.4 - 2.0 mmol/L 08/13/2024 7:56 PM CDT [facility] Blood BLOOD SPECIMEN / Unknown Venipuncture / Unknown 08/13/2024 7:34 PM CDT 08/13/2024 7:35 PM CDT us Brendan Rodriguez MD EC CHEMISTRY ORDERABLES Final Result Performing Organization Address [facility]/ZIP Co de Phone Number [address] * AMMONIA (08/13/2024 7:34 PM CDT) Ammonia 30 14 - 35 umol/L 08/13/2024 7:47 PM CDT [facility] Blood BLOOD SPECIMEN / Unknown Venipuncture / Unknown 08/13/2024 7:34 PM CDT 08/13/2024 7:35 PM CDT us Brendan Rodriguez MD EC CHEMISTRY ORDERABLES Final Result Performing Organization Address [facility]/ZIP Co de Phone Number [address] * HOLD GARCIA TUBE (08/13/2024 7:04 PM CDT) Blood BLOOD SPECIMEN / Unknown Venipuncture / Unknown 08/13/2024 7:04 PM CDT 08/13/2024 7:06 PM CDT us Leora Holcomb SHIFT FOREMAN, CNC OPERATOR MACHINIST EC CHEMISTRY ORDERABLES Final Result Performing Organization Address City/[facility]/ZIP Co de Phone Number [facility] [address] [place] [address] * HOLD NA CITRATE (08/13/2024 7:04 PM CDT) Blood BLOOD SPECIMEN / Unknown Venipuncture / Unknown 08/13/2024 7:04 PM CDT 08/13/2024 7:06 PM CDT us Leora Holcomb APRN, CNC OPERATOR MACHINIST EC HEMATOLOGY ORDERABLE S Final Result Performing Organization Address City/[facility]/ZIP Co de Phone Number [address] * HOLD SERUM TUBE (08/13/2024 7:04 PM CDT) Blood BLOOD SPECIMEN / Unknown Venipuncture / Unknown 08/13/2024 7:04 PM CDT 08/13/2024 7:06 PM CDT us Leora Holcomb SHIFT FOREMAN, CNC OPERATOR MACHINIST EC CHEMISTRY ORDERABLES Final Result [facility] [address] * (ABNORMAL) COMPREHENSIVE METABOLIC PANEL (08/13/2024 7:04 PM CDT) Sodium 140 134 - 143 mEq/L 08/13/2024 7:26 PM CDT [facility] Potassium 3.3(L) 3.4 - 5.1 mEq/L 08/13/2024 7:26 PM CDT [facility] Chloride 108 99 - 110 mEq/L 08/13/2024 7:26 PM CDT [facility] Carbon Dioxide 22 19 - 29 mEq/L 08/13/2024 7:26 PM CDT [facility] Anion Gap 10.0 3.0 - 15.0 mEq/L 08/13/2024 7:26 PM CDT [facility] Blood Urea Nitrogen 8 5 - 24 mg/dL 08/13/2024 7:26 PM CDT [facility] Creatinine 0.66(L) 0.70 - 1.20 mg/dL 08/13/2024 7:26 PM CDT [facility] Glomerular Filtration Rate 109 >60 mL/min/1. 73 m*2 08/13/2024 7:26 PM CDT [facility] Comment:Risk of cardiovascul ar disease increases when GFR is abnormal; persistently reduced GFR values are a specific indication of CKD. This calculation uses CKD- EPI 2020 equation without adjustment for race; it has not been validated in women. Calcium 8.6 8.4 - 10.5 mg/dL 08/13/2024 7:26 PM CDT [facility] Glucose 114(H) 70 - 99 mg/dL 08/13/2024 7:26 PM CDT [facility] Protein, Total 7.0 6.0 - 8.0 g/dL 08/13/2024 7:26 PM CDT [facility] Albumin 3.0(L) 3.5 - 5.0 g/dL 08/13/2024 7:26 PM CDT [facility] Alkaline Phosphatase 216(H) 40 - 150 IU/L 08/13/2024 7:26 PM CDT [facility] Aspartate Aminotransferase 52(H) 16 - 40 IU/L 08/13/2024 7:26 PM CDT [facility] Alanine Aminotransferase 14 10 - 48 IU/L 08/13/2024 7:26 PM CDT [facility] Bilirubin, Total 0.7 0.2 - 1.2 mg/dL 08/13/2024 7:26 PM CDT [facility] Blood BLOOD SPECIMEN / Unknown Venipuncture / Unknown 08/13/2024 7:04 PM CDT 08/13/2024 7:06 PM CDT Narrative [facility] - 08/13/2024 7:26 PM CDT Current ADA criteria for Glucose: Normal: 70-99 mg/dL Impaired Fasting Glucose: 100-125 mg/dL Diabetes Mellitus: at or above 126 mg/dL The diagnosis of diabetes must be confirmed on a subsequent day by measuring Fasting Plasma Glucose, 2-hr PG or random plasma glucose (if symptoms are present). us Leora Holcomb APRN, CNC OPERATOR MACHINIST EC CHEMISTRY ORDERABLES Final Result [facility] [address] [place] [address] * (ABNORMAL) HEMOGRAM/DIFFERENTIAL (08/13/2024 7:04 PM CDT) WBC 5.3 3.2 - 11.0 10*9/L 08/13/2024 7:15 PM CDT [facility] RBC 3.22(L) 4.14 - 5.76 10*12/L 08/13/2024 7:15 PM CDT [facility] HGB 10.3(L) 12.9 - 16.9 g/dL 08/13/2024 7:15 PM CDT [facility] HCT 32.2(L) 38.4 - 49.7 % 08/13/2024 7:15 PM CDT [facility] MCV 100.0(H) 81.4 - 99.0 fL 08/13/2024 7:15 PM CDT [facility] MCH 32.0 26.7 - 33.1 pg 08/13/2024 7:15 PM CDT [facility] MCHC 32.0 31.6 - 35.5 g/dL 08/13/2024 7:15 PM CDT [facility] RDW 15.3(H) 11.3 - 14.6 % 08/13/2024 7:15 PM CDT [facility] PLT 122(L) 130 - 375 10*9/L 08/13/2024 7:15 PM CDT [facility] Neutrophils % 82.3 % 08/13/2024 7:15 PM CDT [facility] Lymphocytes % 10.9 % 08/13/2024 7:15 PM CDT [facility] Monocytes % 6.2 % 08/13/2024 7:15 PM CDT [facility] Eosinophils % 0.2 % 08/13/2024 7:15 PM CDT [facility] Basophils % 0.2 % 08/13/2024 7:15 PM CDT [facility] Immature Granulocytes % 0.2 % 08/13/2024 7:15 PM CDT [facility] Neutrophils Absolute 4.4 1.5 - 7.6 10*9/L 08/13/2024 7:15 PM CDT [facility] Lymphocytes Absolute 0.6(L) 0.8 - 3.3 10*9/L 08/13/2024 7:15 PM CDT [facility] Monocytes Absolute 0.3 0.2 - 0.9 10*9/L 08/13/2024 7:15 PM CDT [facility] Eosinophils Absolute 0.0 0.0 - 0.4 10*9/L 08/13/2024 7:15 PM CDT [facility] Basophils Absolute 0.0 0.0 - 0.1 10*9/L 08/13/2024 7:15 PM CDT [facility] Immature Granulocytes Absolute 0.01 0.00 - 0.06 10*9/L 08/13/2024 7:15 PM CDT [facility] Blood BLOOD SPECIMEN / Unknown Venipuncture / Unknown 08/13/2024 7:04 PM CDT 08/13/2024 7:06 PM CDT us Leora Holcomb APRN, CNC OPERATOR MACHINIST EC HEMATOLOGY ORDERABLE S Final Result Performing Organization Address [facility] Co de Phone Number [address] * (ABNORMAL) MAGNESIUM (08/13/2024 7:04 PM CDT) Magnesium 1.3(L) 1.8 - 2.7 mg/dL 08/13/2024 7:26 PM CDT [facility] Blood BLOOD SPECIMEN / Unknown Venipuncture / Unknown 08/13/2024 7:04 PM CDT 08/13/2024 7:06 PM CDT us Leora Holcomb APRN, CNC OPERATOR MACHINIST EC CHEMISTRY ORDERABLES Final Result [facility] [address] [place] [address] * ALCOHOL (08/13/2024 7:04 PM CDT) Alcohol <10.0 <=10.0 mg/dL 08/13/2024 7:26 PM CDT [facility] Blood BLOOD SPECIMEN / Unknown Venipuncture / Unknown 08/13/2024 7:04 PM CDT 08/13/2024 7:06 PM CDT us Leora Holcomb SHIFT FOREMAN, CNC OPERATOR MACHINIST EC CHEMISTRY ORDERABLES Final Result Performing Organization Address [facility] Co de Phone Number [facility] [address] [place] [address] * EKG 12-LEAD (08/13/2024 6:51 PM CDT) Ventricular Rate 90 BPM MUSE Atrial Rate 90 BPM MUSE P-R Interval 130 ms MUSE QRS Duration 88 ms MUSE QT 410 ms MUSE QTc 501 ms MUSE P [place] 54 degrees MUSE R [place] -77 degrees MUSE T [place] 30 degrees MUSE 08/13/2024 6:51 PM CDT Narrative MUSE - 08/14/2024 1:26 AM CDT Confirming Jason Greenwood Normal sinus rhythm Left anterior fascicular block Cannot rule out Inferior infarct ,age indeterminate Cannot rule out Anterior infarct (cited on or before 12-Aug-2024) Prolonged QT Abnormal ECG When compared with ECG of 12-Aug-2024 22:39, Nonspecific T wave abnormality no longer evident in Lateral leads Procedure Note Bhargav Greenwood MD - 08/14/2024 Confirming Jason Greenwood Normal sinus rhythm Left anterior fascicular block Cannot rule out Inferior infarct ,age indeterminate Cannot rule out Anterior infarct (cited on or before 12-Aug-2024) Prolonged QT Abnormal ECG When compared with ECG of 12-Aug-2024 22:39, Nonspecific T wave abnormality no longer evident in Lateral leads us Susie Franklin MD IP ECG ORDERABLES Final Result MUSE from Last 3 Months Insurance [employer] [facility] [employer] Advance Directives For more information, please contact: [phone] * Full Code (Latest Code Status on File) Date Activated Date Inactivated Comments 09/12/2024 7:38 PM 09/16/2024 4:45 PM Care Teams Vocational Nursing Instructor Relationship Specialty Start Date End Date Choice, No Pcp-Patient PCP - General 09/12/24
--- OUTSIDE RECORDS SUMMARY | 2024-11-13 23:15 | XMS_ITS | Clinical Summary ---
Author Organization [facility] [facility] [employer] [facility] Address [address] [place] [id number] Care Team Providers Care Steel Wool Machine Operator Name Role Phone [facility] [place] Unavailabl e Allergies No known active allergies Medications celecoxib (CELEBREX) 100 mg capsule Take 1 capsule by mouth. daily 0 02/15/2011 Active Active Problems No known active problems Family History Medical History Relation Name Comments Other Father glaucoma Relation Name Status Comments Father Social History Tobacco Use Types Packs/Day Years Used Date Smoking Tobacco: Never Smokeless Tobacco: Never Alcohol Use Standard Drinks/Week Comments Not Asked 0 (1 standard drink = 0.6 oz pur e alcohol) Sex and Gender Information Value Date Recorded Sex Assigned at Not on file Legal Sex Male 7:43 AM FUNDRAISING OFFICER Gender Identity Not on file Sexual Orientation Not on file Obstetrics History Last Filed Vital Signs Vital Sign Reading Time Taken Comments Blood Pressure 134/79 03/27/2011 1:59 PM FUNDRAISING OFFICER Pulse 80 03/27/2011 1:59 PM FUNDRAISING OFFICER Temperature - - Respiratory Rate - - Oxygen Saturation - - Inhaled Oxygen Concentration - - Weight 86.5 kg (190 lb 11.2 oz) 02/15/2011 1:33 PM FUNDRAISING OFFICER Height 175.3 cm (5' 9) 02/15/2011 1:33 PM FUNDRAISING OFFICER Body Mass Index 28.16 02/15/2011 1:33 PM FUNDRAISING OFFICER Plan of Treatment Health Maintenance Due Date Last Done Comments Tetanus booster 1977 Depression screening for age 12+ 1978 HIV for age 15-65 1981 BMI (ht and wt on same day) for age 18+ 02/24/1984 Hepatitis C screening for age 18-79 02/24/1984 Hepatitis B series for 19+ (1 of 3 - 19+ 3-dose series ) 1985 Colonoscopy through age 75 2011 Lipids for age 45-75 2011 Pneumococcal series for age 50+ (1 of 1 - PCV) 016 Zoster (shingles) series for age 50+ (1 of 2) 02/24/20 16 COVID-19 vaccine series (1 - 2023- season) 4 Influenza Vaccine (#1) 2024 Insurance [facility] * Guarantor: [employer] Account Type Relation to Patient Date of Phone Billing Address [facility] [address] [place] [address] Care Teams Steel Wool Machine Operator Relationship Specialty Start Date End Date [facility] PCP - General 07/16/17
[2024-11-13 23:19] VITALS: BP 130/86; PULSE 76; RESP 16; TEMP 36.7; O2SAT 97; BMI 23.5
--- NOTE | 2024-11-13 23:29 | CRLHL7_ITS ---
For Patients: As a result of the Century Cures Act, medical imaging exams and procedure reports are released immediately into your electronic medical record. You may view this report before your referring provider. If you have questions, please contact your health care provider. INDICATION: Abdominal bloating, history of hepatitis and ascites. TECHNIQUE: CT abdomen and pelvis acquired with 74 cc of Isovue 370 IV contrast. COMPARISON: None. FINDINGS: Lower chest: Unremarkable. Liver: Diffuse fatty infiltration. Normal contour. No suspicious mass. Gallbladder and bile ducts: Hydropic gallbladder with mild pericholecystic fluid containing several calcified stones. No biliary ductal dilatation. Pancreas: Unremarkable. No mass or inflammation. Spleen: Unremarkable. Normal in size. No masses. Adrenal glands: Unremarkable. No nodules. Kidneys: 4 mm nonobstructing right nephrolith. No hydronephrosis. No suspicious mass. GI tract: Unremarkable. Normal in caliber. No sign of mass or inflammation. Normal appendix. Vasculature: Abdominal aorta is normal in caliber. Mesenteric arteries are patent. Multiple collateral vessels in the left upper quadrant. Lymph nodes: No lymphadenopathy. Peritoneum/Abdominal Wall: Unremarkable. No free air or significant free fluid. Pelvis: Limited evaluation due to streak artifact from the patient`s hip prosthesis. Bones: Bilateral total hip arthroplasties. Partially imaged thoracolumbar stabilization hardware. IMPRESSION: 1. Hydropic gallbladder with mild pericholecystic fluid contains several calcified stones. Recommend correlation with right upper quadrant ultrasound for acute cholecystitis. 2. Hepatic steatosis. 3. Abundant left upper quadrant collateral vessels. 4. 4 mm nonobstructing right nephrolith. Please note that all CT scans at this facility use dose modulation, iterative reconstruction, and/or weight-based dosing when appropriate to reduce radiation dose to as low as reasonably achievable. Dictated by Mahamed Blanchard MD @ 11/14/2024 12:17:35 AM (Electronically Signed)
[2024-11-13 23:33] VITALS: O2SAT 97
[2024-11-13 23:36] VITALS: BP 113/70; PULSE 82; RESP 16; TEMP 36.7; O2SAT 98
[2024-11-13 23:37] LABS: Hematocrit* 37.6 % (37.0-53.0); Hemoglobin* 12.3 gm/dL (13.5-17.5); Immature Granulocytes Pct Auto 0.8 %; Mean Corpuscular HGB Conc 33 gm/dL (32-36); Mean Corpuscular Hemoglobin 31 pg (26-34); Mean Corpuscular Volume 94 fL (80-100); RDW Coefficient of Variation % 17.9 % (11.5-15.5); Red Blood Count* 3.99 m/uL (4.30-5.90); White Blood Count* 3.83 K/uL (4.50-11.00)
[2024-11-13 23:39] LABS: Immature Granulocytes Abs Auto 0.00 K/uL (0.00-0.30); Lymphocytes Absolute Auto 0.90 K/uL (0.90-2.90); Slide Review Reflex No
[2024-11-13 23:50] LABS: INR 1.04 (0.91-1.10); Prothrombin Time 14.4 Seconds
[2024-11-14] LABS: Chloride* 107 mmol/L (96-114)
[2024-11-14 00:01] VITALS: BP 118/71; PULSE 77; O2SAT 97
[2024-11-14 00:01] LABS: Albumin* 3.5 g/dL (3.3-5.0); Potassium* 3.6 mmol/L (3.6-5.1); Sodium* 140 mmol/L (135-149)
[2024-11-14 00:03] LABS: Blood Urea Nitrogen* 5 mg/dL (7-30); Creatinine* 0.6 mg/dL (0.5-1.5); Est. Creatinine Clearance* 125.47; Estimated Glomerular Filt Rate 112 ml/min
[2024-11-14 00:04] LABS: Alanine Aminotransferase* 31 U/L (4-50); Alkaline Phosphatase* 148 U/L (40-150); Anion Gap 6 mEq/L (7-15); Aspartate Amino Transferase* 89 U/L (12-35); Bilirubin Direct* 0.4 mg/dL (0.0-0.5); Bilirubin Total* 0.7 mg/dL (0.1-1.5); Calcium* 8.5 mg/dL (8.4-10.6); Carbon Dioxide* 27 mmol/L (20-32); Glucose* 124 mg/dL (60-115); Total Protein* 6.7 g/dL (6.0-8.3)
[2024-11-14] MEDS: MAGNESIUM IV 2 GM/50 ML PIGGYBACK IVPB (00:21)
[2024-11-14 00:31] VITALS: BP 116/68; PULSE 79; RESP 16; O2SAT 95
[2024-11-14 01:07] VITALS: BP 130/86; PULSE 76; RESP 16; TEMP 36.7
== END 2024-11-14 01:07 | disposition home or self-care (01) ==
PROVIDERS: Emergency Provider Family Medicine
DX: D61.818 Other pancytopenia (principal); E83.42 Hypomagnesemia; K70.31 Alcoholic cirrhosis of liver with ascites
CPT/HCPCS: 36415; 74177; 80048; 80076; 83690; 83735; 85025; 85610; 94761; 96365; 99284; 99285; J3475; Q9967